=== PATIENT | male | born 1940 | race African-American/Black ===

== ENCOUNTER 2018-04-01 14:49 | Emergency (ER) | payer MEDICARE ==
[2018-04-01 15:50] LABS: Bilirubin Small (Negative); Blood, Urine Negative (Negative); Clarity CLEAR (Clear); Glucose, Urine (Dipstick) Negative (Negative); Leukocyte Small (Negative); Nitrite Negative (Negative); Protein, Urine (Dipstick) 100 mg/dL (Neg-Trace); Specific Gravity, Urine 1.023 (1.002-1.036); pH, Urine 5.5 (5.0-9.0)
[2018-04-01 15:50] LABS: #Eosinphils 0.1 thou/uL (0.0-0.7); #Lymphocytes 0.7 thou/uL (1.20-3.40); #Monocytes 0.7 thou/uL (0.11-0.59); #Neutrophils 5.7 thou/uL (1.40-6.50); %Basophils 0.2 % (0.0-1.0); %Eosinophils 0.8 % (0.0-10.0); %Lymphocytes 9.7 % (21.0-51.0); %Monocytes 9.5 % (0.0-10.0); %Neutrophils 79.8 % (42.0-75.0); Hemoglobin 11.9 g/dL (14.0-18.0); Mean Corpuscular HGB CONC 30.8 g/dL (32.0-36.0); Mean Corpuscular Hemoglobin 22.9 pg (27.0-31.0); Mean Corpuscular Volume 74.2 fL (78.0-98.0); Mean Platelet Volume 9.3 fL (7.4-10.4); Platelet Count 217 thou/uL (130-400); RBC Distribution Width 17.7 % (11.5-14.5); Red Blood Cell (RBC) Count 5.19 mill/uL (4.70-6.10); White Blood Cell (WBC) Count 7.2 thou/uL (4.8-10.8)
[2018-04-01 15:56] LABS: Bacteria/HPF None Seen HPF (None Seen); Squamous Epithelial 0-3 HPF (0-3); WBC/HPF 0-3 HPF (0-3)
[2018-04-01 15:59] LABS: Pathc Cast-AUWi Flag 5.66 (0-2.49)
[2018-04-01 16:04] LABS: Anisocytosis SLIGHT = 6-15 cells (100X) (0-5/hpf); Hypochromia SLIGHT = 6-15 cells (100X) (0-5/hpf); MDiff Complete? YES; Microcytosis SLIGHT = 6-15 cells (100X) (0-5/hpf); PLT Morphology Comment Appears Adequate; Polychromasia SLIGHT = 2-3 cells (100X) (0-2/hpf)
[2018-04-01 16:09] LABS: ALT (SGPT) 16 U/L (8-55); AST (SGOT) 38 U/L (5-34); Albumin 3.5 g/dL (3.4-4.8); Alkaline Phosphatase 1035 U/L (40-150); Anion Gap 15 mmol/L (10-20); BUN (Urea Nitrogen) 35 mg/dL (8.4-25.7); Bilirubin, Total 0.6 mg/dL (0.2-1.2); Calc. Creatinine Clearance 0 mL/min (70-130); Calcium 9.4 mg/dL (7.8-10.44); Carbon Dioxide 24 mmol/L (23-31); Chloride 97 mmol/L (98-107); Estimated GFR-MDRD 35; Globulin 4.3 g/dL (2.4-3.5); Glucose 146 mg/dL (83-110); Lipase 64 U/L (8-78); Potassium 4.6 mmol/L (3.5-5.1); Protein, Total 7.8 g/dL (5.8-8.1); Sodium 131 mmol/L (136-145)
[2018-04-01 16:10] LABS: Hyaline Casts/LPF 7-10 HYALINE CAST LPF (0-3 Hyaline); Other Casts/LPF None Seen LPF (0-3 Hyaline)
[2018-04-01] MEDS ORDERED: Ondansetron PF 4 MG/2 ML Vial ONE (17:52)
[2018-04-01] MEDS ORDERED: Morphine 2 MG/ML SYRINGE ONE (17:52)
--- NOTE | 2018-04-01 20:41 | CT ---
NONCONTRAST ENHANCED CT IMAGES OF THE ABDOMEN AND PELVIS 04/01/18 HISTORY: Abdominal pain. Noncontrast enhanced CT images of the abdomen and pelvis is obtained. Unfortunately without IV and or al contrast, there is decreased sensitivity for detection of pathology. Some areas of atelectasis seen in both lung bases. No evidence of free intraperitoneal air seen. Extensive areas of calcifications seen in the right hepatic lobe. The liver is otherwise unremarkable . No definite evidence of gallbladder abnormality seen. The spleen is unremarkable. Extensive left fl ank surgical changes seen. The left kidney is atrophied with surgical clips seen in the left perirena l area. The abdominal aorta contains some calcifications without evidence of aneurysms. No dilated loops of small bowel. The colon is of normal caliber with numerous descending and sigmoid colonic diverticula present. Extensive lumbar spinal degenerative changes seen. Bilateral hip arthritic changes seen. IMPRESSION: 1. Limited CT of abdomen and pelvis as IV and oral contrast was not given. 2. Left perirenal surgical changes. 3. No significant evidence of acute obstruction or free intraperitoneal air. POS: NANO
[2018-04-05 04:16] LABS: Total PSA 8.2 ng/mL (0.0-4.0)
== END 2018-04-01 18:58 | disposition home or self-care (01) ==
LOC: ERS 14:49
DX: M54.5 Low back pain (principal); R10.9 Unspecified abdominal pain; R74.8 Abnormal levels of other serum enzymes; E11.9 Type 2 diabetes mellitus without complications; I10 Essential (primary) hypertension
CPT/HCPCS: 36415; 74176; 80048; 81003; 81015; 82140; 82550; 83605; 83690; 83970; 84100; 84153; 84154; 85025; 96374; 96375; J2270; J2405

== ENCOUNTER 2018-04-28 14:25 | Outpatient (CLI) | payer MEDICARE ==
--- NOTE | 2018-04-28 15:49 | RAD ---
RIGHT HIP 2 VIEWS: HISTORY: A 77-year-old male with a history of right hip pain without recent fall. FINDINGS: There are heterogeneous nodular sclerotic densities within the right proximal femur as well as the ri ght hemipelvis. No evidence for acute fracture. IMPRESSION: Multiple nodular foci of increased sclerotic density, particularly within the proximal femur, but als o less marked in the right hemipelvis certainly concerning for the possibility of metastatic bone dis ease. Consider followup bone scan for further evaluation. No evidence for acute fracture. Mild deg enerative changes right hip joint. POS: NANO
--- NOTE | 2018-04-28 15:51 | RAD ---
RADIOGRAPH LUMBAR SPINE 3 VIEWS: 04/28/18 HISTORY: 77-year-old male with low back pain. FINDINGS: The lateral view demonstrates a large coarse calcification in the upper abdomen, which was demonstrat ed to be in the right lobe of the liver on the abdominal and pelvic CT of 04/01/18. There are five lum bar type vertebrae. Vertebral body heights are maintained. The bones appear diffusely sclerotic. Furt hermore, the sclerosis is heterogeneous, with numerous focal nodular sclerotic foci. Vertebral body h eights are preserved. At L5-S1, there is vacuum disc phenomenon and moderate to severe disc space narrowing. There is moderate disc space narrowing at L4-5, L3-4, and L2-3. No scoliosis. There are degenerative facet changes at lower levels. No major spondylolisthesis. IMPRESSION: 1. Extensive sclerotic skeletal lesions, highly suspicious for osteoblastic, widespread skeletal metastatic disease, such as from prostate cancer. Recommend correlation with serum PSA levels. 2. Lumbar spondylosis, with multilevel degenerative disc disease and facet osteoarthrosis, at le ast moderate. Code T JN [] POS: CET
--- NOTE | 2018-04-28 15:51 | RAD ---
LEFT HIP 2 VIEWS: HISTORY: A 77-year-old male with a history of left hip pain without recent fall. There are some nodular sclerotic foci within the proximal left femur but also in the left hemipelvis raising concern for the possibility of blastic bone metastasis. Degenerative changes of the left hip joint. No acute fracture. IMPRESSION: Multiple mostly sclerotic nodular foci of abnormal bone density within the proximal left femur and al so the left hemipelvis raising concern for the possibility of blastic bone metastasis. Degenerative changes let hip joint without acute fracture or dislocation. CODE T POS: TIMOTHY
== END 2018-04-28 14:26 | disposition home or self-care (01) ==
LOC: BICRAD 14:25
PROVIDERS: ATTEND Family Medicine
DX: M25.552 Pain in left hip (principal); M54.5 Low back pain; R74.8 Abnormal levels of other serum enzymes; M51.36 Other intervertebral disc degeneration, lumbar region; M47.816 Spondylosis without myelopathy or radiculopathy, lumbar region; M16.0 Bilateral primary osteoarthritis of hip; M89.9 Disorder of bone, unspecified
CPT/HCPCS: 36415; 72100; 84153; 84154; 84165; 84166; 85652

== ENCOUNTER 2018-05-17 12:15 | Inpatient (IN) | payer MEDICARE ==
[2018-05-17] MEDS ORDERED: HYDROcodone/Acetaminophen 10/325 mg Tablet PO PRN ×2 (13:39)
[2018-05-17] MEDS ORDERED: Ondansetron ODT 4 MG TAB PO PRN (13:40)
[2018-05-17] MEDS: Sodium Chloride 0.9% 1,000 ML IV SCH ×2 (15:01→21:58)
[2018-05-17] MEDS ORDERED: Morphine 2 MG/ML SYRINGE SLOW IVP PRN (15:21)
[2018-05-17] MEDS ORDERED: Morphine 4 MG/ML VIAL SLOW IVP SCH (15:30)
[2018-05-17] MEDS ORDERED: diphenhydrAMINE 50 MG/ML VIAL IM PRN (17:19)
[2018-05-17] MEDS ORDERED: Ondansetron PF 4 MG/2 ML Vial IVP PRN (17:19)
[2018-05-17] MEDS ORDERED: Promethazine HCl 25 MG/ML VIAL IM PRN (17:19)
[2018-05-17] MEDS ORDERED: Naloxone HCl 0.4 mg/ml Vial IV PRN (17:19)
[2018-05-17] MEDS ORDERED: Zolpidem Tartrate 5 MG TAB PO PRN (17:19)
[2018-05-17] MEDS ORDERED: diphenhydrAMINE 50 MG/ML VIAL IVP PRN (17:19)
[2018-05-17] MEDS ORDERED: diphenhydrAMINE 25 MG CAP PO PRN (17:19)
[2018-05-17] MEDS ORDERED: Communication Order-Pharmacy FS SCH (17:30)
[2018-05-17] MEDS: fentaNYL Citrate/PF 2,000 MCG in Sodium Chloride 0.9% 60 ML IV PRN (19:15)
[2018-05-17] MEDS: Famotidine 20 MG TAB PO SCH (19:55)
[2018-05-18] MEDS: Acetaminophen 325 MG TAB PO PRN ×2 (01:01→20:34)
--- NOTE | 2018-05-18 01:21 | HP ---
CHIEF COMPLAINT: Intractable back and hip pain, inability to ambulate. HISTORY OF PRESENT ILLNESS: This is a 78-year-old gentleman with history of rheumatoid arthritis, type 2 diabetes, hypertension, chronic kidney disease, and past history of renal cell carcinoma, who presented to my office with worsening back and hip pain. He developed the pain a few weeks ago, presented for followup with worsening pain and obtained x-rays of his back and hips as well as labs at that time. He was found to have bony changes consistent with metastatic bone disease in his L-spine as well as bilateral hips as well as elevated PSA and inflammatory markers. Arrangements were made for outpatient followup with Urology. He had difficulty functioning at home and had 1-week stay at the inpatient rehab and then discharged home with no improvement of his pain or symptoms. Re-presented to my office today with more difficulty ambulating, more pain, minimal relief with even narcotic analgesia, including decreased p.o. intake and began to fail to thrive. He is now being admitted for further evaluation, workup and treatment of his symptoms. PAST MEDICAL HISTORY: Again, remote history of renal cell carcinoma, status post left nephrectomy in 2011 with resultant left flank abscess; history of type 2 diabetes; hypertension; hyperlipidemia; [id number] aortic stenosis; rheumatoid arthritis; status post aortic valve replacement; and history of congestive heart failure. PAST SURGICAL HISTORY: Left nephrectomy in 2011, appendectomy in 1986, I and D of left flank abscess in 2013, and aortic valve replacement in 2012. MEDICATIONS: Include; 1. Atorvastatin 40 mg. 2. Potassium chloride 10 mEq daily. 3. Humulin R sliding scale. 4. Lantus. 5. Coreg 3.125 mg twice a day. 6. Furosemide 80 mg daily. 7. Prednisone 5 mg daily. 8. [place] 5/325 q.6 p.r.n. 9. Colace 100 mg daily. 10. Folic acid 1 mg daily. 11. Ferrous sulfate 325 mg daily. 12. Albuterol p.r.n. 13. Cymbalta 20 mg daily. 14. Aspirin 81 mg daily. 15. Protonix 40 mg daily. ALLERGIES: TO PENICILLIN AND SULFAMETHOXAZOLE. IMMUNIZATIONS: Flu shot and pneumonia vaccines are up-to-date. FAMILY HISTORY: Father . Mother with hypertension and heart disease. Siblings with hypertension and heart disease. SOCIAL HISTORY: He is . 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 No smoking. No alcohol. He was able to walk prior to this episode. REVIEW OF SYSTEMS: As per the history of present illness. CONSTITUTIONAL: He denies any recent fevers, chills, or recent upper respiratory infection. HEENT: No headache, visual or hearing changes. No congestion. CARDIAC: History of congestive heart failure, but denies chest pain or shortness of breath or palpitations. PULMONARY: Denies cough or hemoptysis. GASTROINTESTINAL: Some nausea. No vomiting. Poor p.o. intake. GENITOURINARY: History of hematuria with resultant renal cell carcinoma. MUSCULOSKELETAL: Positive joint pains due to rheumatoid arthritis. Has been followed by Dr. Chiang in the past. PSYCHIATRIC: History of some depression due to chronic pain. PHYSICAL EXAMINATION: VITAL SIGNS: Temperature 97.1, pulse is 78, respirations 12 to 15, blood pressure 132/60, and pulse ox is 97% on room air. GENERAL: He is awake and alert, in moderate distress due to pain and ability to ambulate or stand at the time. HEENT: Mucosa is moist. NECK: Supple. HEART: Regular rate and rhythm with 2/6 systolic ejection murmur. Trace edema bilateral lower extremities. RESPIRATORY: Clear. No wheezes, rales, or rhonchi. ABDOMEN: Obese, soft, nontender, and nondistended. No hepatosplenomegaly. EXTREMITIES: Again with trace edema bilaterally. 2+ peripheral pulses bilaterally. SKIN: With no lesions. He does have some tightness of the skin around his face, hands, and feet. BACK: Painful range of motion of the lumbar spine with tenderness over the lumbar spine. Decreased range of motion of his joints, including his hips. Inability to lay on the bed for full exam. LABORATORY DATA: Pending at this time, but from review of his recent x-rays, right hip revealed nodular sclerotic densities in the right femur and right hemipelvis consistent with metastatic bone disease. Left hip x-ray revealed sclerotic nodular foci with abnormal bone density in the left femur and left hemipelvis with concern for bony metastases. Lumbar spine revealed extensive sclerotic skeletal lesions highly suspicious for metastatic disease. Recent labs with a sed rate elevated at 97. PSA elevated at 11.6. Normal protein and urine electrophoresis. Alkaline phosphatase over 14,000. ASSESSMENT AND PLAN: This is a 78-year-old gentleman with history of diabetes, heart disease, hypertension, hyperlipidemia, and remote history of renal cell carcinoma; now with persistent and worsening back and hip pain with x-rays consistent with bony metastases likely from prostate origin. 1. Analgesia. We will start morphine p.r.n. pain and try to get him more comfortable. 2. Abnormalities of PSA and bony metastases highly suspicious for prostate origin. We will consult Dr. Fragoso for evaluation and possible therapies. 3. Pain Management consultation. 4. Type 2 diabetes. We will continue his insulin and sliding scale and monitor closely. 5. Stage 4 chronic kidney disease, likely a prerenal component. We will gently hydrate and monitor his fluid status closely. 6. Cardiomyopathy with history of congestive heart failure. We will continue carvedilol and Lasix as needed. Job ID: [id number]
[2018-05-18] MEDS: Famotidine 20 MG TAB PO SCH ×2 (08:24→20:34)
[2018-05-18] MEDS: Enoxaparin Sodium 30 MG/0.3 ML SYRINGE SC SCH (08:24)
[2018-05-18] MEDS: Sodium Chloride 0.9% 1,000 ML IV SCH ×2 (08:33→20:34)
[2018-05-18 09:07] LABS: ALT (SGPT) 13 U/L (8-55); AST (SGOT) 211 U/L (5-34); Alkaline Phosphatase 2306 U/L (40-150); Anion Gap 14 mmol/L (10-20); BUN (Urea Nitrogen) 30 mg/dL (8.4-25.7); Bilirubin, Total 0.8 mg/dL (0.2-1.2); Calc. Creatinine Clearance 53 mL/min (70-130); Carbon Dioxide 21 mmol/L (23-31); Chloride 104 mmol/L (98-107); Estimated GFR-MDRD 47; Globulin 3.4 g/dL (2.4-3.5); Glucose 124 mg/dL (83-110); Potassium 4.6 mmol/L (3.5-5.1); Protein, Total 6.4 g/dL (5.8-8.1); Sodium 134 mmol/L (136-145)
--- NOTE | 2018-05-18 09:33 | PRG ---
DATE OF SERVICE: 05/18/2018 SUBJECTIVE: The patient is feeling significantly better. He states that he had a good night sleep last night. He is moving in bed with decreased difficulty, still with some pain, but much improved with analgesia. I appreciate Anesthesia's assistance with pain management. He denies chest pain or shortness of breath. OBJECTIVE: VITAL SIGNS: Temperature 98.1, T-max of 100.8, pulse of 90, respirations 20, blood pressure 143/62, and pulse ox is 95% on 2 L nasal cannula. GENERAL: He is awake and alert, in no acute distress. Speech is clear. HEENT: Mucosa is moist. NECK: Supple. HEART: Regular rate and rhythm. LUNGS: Clear. ABDOMEN: Soft. BACK: With painful range of motion in the lumbar spine. EXTREMITIES: No edema. He is moving his hips better. Continues to have pain with range of motion. LABORATORY DATA: Laboratory data are pending. X-ray is as described on H and P. ASSESSMENT AND PLAN: This is a 78-year-old gentleman with history of coronary artery disease with cardiomyopathy, hypertension, chronic kidney disease, and history of renal cell carcinoma, now with intractable back and hip pain with bone metastases on x-ray suspicious for metastatic prostate cancer. 1. Intractable back and hip pain, improved with analgesia. I appreciate Anesthesia's assistance. 2. Elevated PSA with bony metastases. Dr. Fragoso to evaluate and discuss with family possible therapies. 3. Type 2 diabetes. We will continue insulin and sliding scale. 4. Cardiomyopathy with history of congestive heart failure. We will monitor his fluid status closely, awaiting labs from this morning. Job ID: [id number]
[2018-05-18 10:00] LABS: Band 24 % (5-11); Eosinophils 2 % (0-10); Hemoglobin 8.7 g/dL (14.0-18.0); Hypochromia SLIGHT = 6-15 cells (100X) (0-5/hpf); Lymphocytes 31 % (21-51); MDiff Complete? YES; Mean Corpuscular HGB CONC 31.4 g/dL (32.0-36.0); Mean Corpuscular Volume 73.4 fL (78.0-98.0); Mean Platelet Volume 4.2 fL (7.4-10.4); Metamyelocyte 3 % (0-0); Microcytosis MODERATE=15-30 cells (100X) (0-5/hpf); Monocytes 11 % (0-10); Myelocyte 3 % (0-0); Neutrophil 23 % (42-75); Nucleated RBC 10 % (0); PLT Morphology Comment Appears Decreased; Platelet Count 87 thou/uL (130-400); Polychromasia MODERATE = 3-4 cells (100X) (0-2/hpf); RBC Distribution Width 20.7 % (11.5-14.5); Reactive Lymphocytes 3 % (0-10); Red Blood Cell (RBC) Count 3.76 mill/uL (4.70-6.10); White Blood Cell (WBC) Count 4.4 thou/uL (4.8-10.8)
--- NOTE | 2018-05-19 | CON ---
DATE OF CONSULTATION: 05/18/[address] Krishna. Consulted is Dr. Fragoso. REASON FOR CONSULTATION: Metastatic cancer. HISTORY OF PRESENT ILLNESS: Mr. Ruiz is a 78-year-old black male, who was admitted to the hospital by Dr. Krishna for concerns regarding metastatic cancer. The patient presented to Dr. Krishna with a several week history of worsening pain in the hips and back. The patient recently had a CT in March, which did not demonstrate any overtly concerning findings, but a subsequent x-ray of the hip and spine towards the end of March demonstrated concerning diffuse osteoblastic metastatic disease. As the patient's pain got worse, he was admitted to the hospital for pain control. He had a PSA drawn, which came back at 11.6 with elevated inflammatory markers. 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 I have been consulted for further assistance on his workup. The patient does have a history of renal cell carcinoma, which was resected with nephrectomy in 2010 in [place]. I do not have any of the pathology reports on this, but he states that he did not have any recurrence afterwards and he did have some followup with them in the postoperative years. It is unclear whether or not he has been having routine PSA screening or rectal examination. The patient is somewhat a poor historian today as he is currently on a lot of fentanyl and is having a hard time keeping his eyes open. He falls asleep quickly, although he is answering questions but is not giving a very thorough history. He does state that he is having some difficulty with urination with a weak stream. He denies any hematuria and states that he has not had any UTIs. He is feeling relatively tired currently. PAST MEDICAL HISTORY: 1. Renal cell carcinoma, status post nephrectomy. 2. Left flank abscess. 3. Type 2 diabetes. 4. Hypertension. 5. Hyperlipidemia. 6. Aortic stenosis. 7. Rheumatoid arthritis. 8. Congestive heart failure. PAST SURGICAL HISTORY: 1. Left nephrectomy in 2011. 2. Appendectomy in 1986. 3. I and D of left flank abscess in 2013. 4. Aortic valve replacement in 2012. HOME MEDICATIONS: 1. Atorvastatin. 2. Potassium chloride. 3. Humulin. 4. Lantus. 5. Coreg. 6. Furosemide. 7. Prednisone. 8. [place]. 9. Colace. 10. Folic acid. 11. Ferrous sulfate. 12. Albuterol. 13. Cymbalta. 14. Aspirin. 15. Protonix. ALLERGIES: 1. PENICILLIN. 2. SULFAMETHOXAZOLE. FAMILY HISTORY: Not significant for prostate or renal cell carcinoma. He does have brothers and sisters with hypertension and heart disease. SOCIAL HISTORY: The patient is . 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 He denies smoking, alcohol, or illicit drug use. REVIEW OF SYSTEMS: A 12-point review of system was unremarkable other than the patient's back and hip pain, which he states is relatively well controlled right now. The above symptoms are listed in the HPI. He denies any chest pain or shortness of breath. He does have a history of joint pain secondary to rheumatoid arthritis, but the pain in his spine is much worse than what his joint pains have been in the past. Remainder of 12-point review of system was reviewed and otherwise negative. PHYSICAL EXAMINATION: VITAL SIGNS: Temperature 98.1, pulse 90, respirations 20, blood pressure 148/53, saturation 95% on 2.5 L of nasal cannula. GENERAL: Somnolent, but otherwise answering questions appropriately. Appears stated age, well nourished, well developed. HEENT: Normocephalic, atraumatic. Pupils are symmetric and round. They are somewhat small. Moist mucous membranes. Trachea midline. CARDIOVASCULAR: Regular rate and rhythm. Normal S1 and S2. Symmetric pulses. Loud systolic murmur. CHEST: No increased work of breathing. Symmetric expansion. LUNGS: Decreased breath sounds. No obvious wheezes or crackles anteriorly. ABDOMEN: Soft, nontender, nondistended. Positive bowel sounds. No organomegaly. No rebound or guarding. EXTREMITIES: 1+ edema bilaterally. No clubbing or cyanosis. GENITOURINARY: ILA demonstrates a grade 3 prostate with bilateral nodularity and firmness consistent with possible prostate cancer. SKIN: Warm and dry. No rashes or lesions. MUSCULOSKELETAL: No joint deformities or joint erythema noted. There is significant tenderness on his lumbar spine. The patient has difficulty moving currently with apparent decreased range of motion of his lower extremities with adequate range of motion of the upper extremities. NEUROLOGIC: Cranial nerves 2 through 12 appear grossly intact. No focal or sensory motor deficits identified. Although the patient has generalized lower extremity weakness, it is unclear if this is due to sedation, neurologic impairment or the patient's pain. PSYCHIATRIC: Alert and oriented x3. The patient is somnolent, but otherwise appropriate. LABORATORY DATA: On laboratory evaluation, full set of labs in the [facility] system which I have reviewed. Of note, the patient's white count is 4.4 with hemoglobin of 8.7, platelet count of 87. Creatinine is 1.71. Most recent PSA 11.6 on April 28. Lumbar spine x-ray on April 28, demonstrates extensive sclerotic skeletal lesions highly suspicious for osteoblastic widespread metastatic disease, possibly from prostate cancer. There is also lumbar spondylosis with multilevel degenerative disc disease. Hip x-ray from April 28 demonstrates multiple nodular foci of increased sclerotic density particularly within the proximal femur concerning for metastatic bone disease. CT from April 01 demonstrates left perirenal surgical changes without evidence of obstruction or hydronephrosis, although the left kidney is atrophied. Degenerative changes seen in the spine, but no comment on metastatic cancer is noted. ASSESSMENT AND PLAN: A 78-year-old black male with high suspicion for metastatic prostate cancer. His PSA is not significantly elevated at 11.9, which is unusual. Generally metastatic diffuse bony prostate cancer would have a PSA well over 100. At this point, it is possible that he has [place] 5 + 5 prostate cancer, which is so poorly differentiated that is actually not producing PSA in which case, we may see the current changes. I would recommend a biopsy of one of the sclerotic lesions on the bone to see if this is indeed actually metastatic prostate cancer, which it most likely is. While metastatic renal cell carcinoma is also possible, generally, these are osteolytic lesions and not blastic lesions and would be unusual this far out with this extensive bony metastatic disease. I will go ahead and consult Medical Oncology further assistance as well, but the patient may benefit from starting on androgen deprivation. I will arrange for a CT-guided biopsy of one of the spinal lesions if this is possible to try to confirm a pathologic diagnosis. If Radiology is not able to do this, we may have to consider doing a prostate biopsy instead. Regarding the patient's pain, I am in agreement with the patient's ELECTRIC BLANKET PACKER although care needs to be taken about how much pain medication he is receiving as he is already appearing sedated. He would probably benefit from androgen deprivation if this is confirmed to be metastatic prostate cancer and the quickest way to do that would be ketoconazole followed by bicalutamide therapy once his pain is more adequately controlled. The patient may also benefit from focal radiation to the areas of increased pain along the spine but before any of this is undertaken, I do think we need to get a pathologic diagnosis. I will continue to follow for the time being and make a consult for Medical Oncology to see if they have any additional options or recommendations. Job ID: [id number]
[2018-05-19] MEDS: Sodium Chloride 0.9% 1,000 ML IV SCH ×2 (05:19→18:22)
[2018-05-19] MEDS: Famotidine 20 MG TAB PO SCH ×2 (09:37→20:54)
[2018-05-19] MEDS: Enoxaparin Sodium 30 MG/0.3 ML SYRINGE SC SCH (09:38)
[2018-05-19 12:47] LABS: INR-International Normal Ratio 1.3; Prothrombin Time 16.1 SEC (12.0-14.7)
[2018-05-19 12:48] LABS: PTT 36.1 SEC (22.9-36.1)
--- NOTE | 2018-05-19 13:05 | NM ---
NUCLEAR MEDICINE BONE SCAN: HISTORY: Hip pain. COMPARISON: CT abdomen and pelvis from 04/01/2018. FINDINGS: Whole body delayed imaging was obtained after the intravenous administration of 32 millicuries of noah hnetium 99m MDP. The kidneys are reportedly seen. The urinary bladder is only partially filled with radiotracer. The re is diffuse axial and appendicular uptake of radiotracer. IMPRESSION: Diffuse metastatic disease. POS: TIMOTHY
[2018-05-19] MEDS ORDERED: Sodium Bicarbonate 2.5 MEQ/5 ML VIAL ONE (13:57)
[2018-05-19] MEDS ORDERED: Midazolam HCl 2 mg/2 ml Vial ONE (14:00)
[2018-05-19] MEDS ORDERED: Fentanyl 100 MCG/2 ML VIAL ONE (14:00)
--- NOTE | 2018-05-19 14:41 | CON ---
DATE OF CONSULTATION: REASON FOR CONSULTATION: Bone metastasis from unknown cancer. HISTORY OF PRESENT ILLNESS: A 78-year-old male with history of diabetes; hypertension; CKD; rheumatoid arthritis; and renal cell carcinoma, status post resection in 2010, presenting with worsening back and hip pain and knee pain. The patient states that he has had chronic knee pain for years and resultant leg weakness, which has recently started to worsen. Three weeks ago, he developed new onset back pain in his lower back, 10/10, and nonradiating. The patient had been evaluated as an outpatient with an x-ray of the lumbar spine that showed extensive sclerotic skeletal lesions highly suspicious for osteoblastic skeletal metastatic disease. PSA was 11.6. The patient was referred to Urology as an outpatient; however, before his appointment, he presented here to the hospital due to uncontrollable pain. The patient is currently on a HELICOPTER MECHANIC with improvement in his pain to 3 to 4/10; however, he says his knees are hurting worse and are 8/10 in pain. He denies any urinary or bowel incontinence, but does have slow urinary stream. He denies any hematuria. He denies fevers or night sweats, shortness of breath or cough. He denies any numbness or tingling in his lower extremities. The patient has been evaluated by Dr. Fragoso from Neurology, who has ordered a biopsy of his bone. The patient denies any other symptoms. The patient is a former smoker and states he does not smoke anymore, however, his said he does smoke on and off. He denies any alcohol use. He states his father had some sort of abdominal cancer, but unclear what type. REVIEW OF SYSTEMS: Ten-point review of systems negative except as per HPI. PAST MEDICAL HISTORY: Renal cell carcinoma, status post left nephrectomy in 2010 and 2011; diabetes; hypertension; CKD; hyperlipidemia; aortic stenosis, status post valve replacement; rheumatoid arthritis; and CHF. PAST SURGICAL HISTORY: Left nephrectomy in 2011, appendectomy in 1986, I and D of left flank abscess in 2013, and aortic valve replacement in 2012. FAMILY HISTORY: Some sort of abdominal cancer in his father. 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 Denies current smoking, but is a former smoker, however, states he still smokes. Denies any alcohol use. ALLERGIES: PENICILLIN AND SULFAMETHOXAZOLE. CURRENT MEDICATIONS: Reviewed. PHYSICAL EXAMINATION: VITAL SIGNS: Temperature 100.3 overnight, currently 98.2; pulse 100; respirations 17; saturating 96% on 2 L by nasal cannula; and blood pressure 129/62. GENERAL APPEARANCE: The patient is sitting in chair, in no acute distress. Able to stand and transition from bed to chair extremely slowly, in moderate pain during transition. HEENT: Normocephalic and atraumatic. NECK: Supple. CARDIAC: S1 and S2 with 3/6 systolic ejection murmur. RESPIRATIONS: Clear to auscultation bilaterally without wheezes, rales, or rhonchi. ABDOMEN: Obese, but soft, nondistended, and nontender. EXTREMITIES: Minimal edema bilaterally. SKIN: No rash. LYMPHATICS: No palpable lymphadenopathy. BACK: Minimal spinal tenderness around upper lumbar spine with decreased range of movement. LABORATORY DATA: White blood cells 4.4, hemoglobin 8.7, platelets 87, with 3% metamyelocytes, 3% myelocytes, and 10% nucleated red blood cells. Sodium 134, potassium 4.6, BUN 30, and creatinine 1.71. Alkaline phosphatase 2306. PSA on April 28, 2018, was 11.6. Calcium 9.0. IMAGING DATA: X-ray of the lumbar spine dated April 28, 2018, shows extensive sclerotic skeletal lesions highly suspicious for osteoblastic widespread skeletal metastatic disease. Lumbar spondylosis with multilevel degenerative disk disease with facet osteoarthrosis at least moderate. ASSESSMENT AND PLAN: A 78-year-old male with suspicion of metastatic cancer to bones likely of prostate origin. The patient with severe back pain with lesion seen on x-ray. Pain is improving with HELICOPTER MECHANIC at this time and we will continue to monitor his pain level and sedation level. The patient does have a mildly increased PSA and slow stream on urination concerning for metastatic prostate cancer. However, as mentioned by Dr. Fragoso, this degree of metastatic prostate cancer typically has extremely elevated PSA, however, there are times where PSA can be minimally elevated, such as a very poorly differentiated prostate adenocarcinoma or even potentially a small cell prostate cancer. I agree with biopsy of the sclerotic lesion in the bone, and if negative, the patient would need a biopsy of the prostate. The patient has a remote history of renal cell carcinoma 6 to 7 years ago, status post resection, with no evidence of recurrence, and although these lesions could be from renal cell carcinoma, these are typically osteolytic lesions. The patient has no further imaging of the bones and we would recommend a bone scan at this time. He has no signs or symptoms of cord compression other than weakness of the legs, which is chronic as per the patient's report. The patient is also found to be pancytopenic with a mildly decreased white count, but with immature forms on differential along with anemia and thrombocytopenia, which is new. We would recommend sending flow cytometry for further evaluations, and if negative and counts do not improve or worsen, then we would recommend bone marrow biopsy at that time. If biopsy comes back showing prostate cancer due to extent of metastatic disease and symptoms, the patient would benefit from treatment with ketoconazole and a gonadotropin-releasing hormone antagonists antagonist acutely, which can then be transitioned to Casodex and Lupron. The patient may also benefit from docetaxel chemotherapy due to extent of disease. The patient would also be a candidate for palliative radiation to the spine and I will consult with Dr. Roth about this. We will follow up the imaging and biopsy results and follow along with you. Thank you for this consult. Job ID: [id number]
--- NOTE | 2018-05-19 16:16 | CT ---
CT GUIDED BONE BIOPSY: Date: 05/19/18 HISTORY: Metastatic disease. COMPARISON: CT abdomen and pelvis dated 04/01/18. Bone scan same day. FINDINGS: The patient was brought to the CT suite. All questions were answered. The patient's back was prepped and draped in the normal sterile fashion. 5 mL of lidocaine was instilled into the superficial and deep soft tissues. After adequate anesthesia , a small dermatotomy was made. Using a 10 gauge needle, a 3.0 cm core was obtained. The pathologist confirmed adequacy. The patient tolerated the procedure well and without complication. IMPRESSION: Technically successful CT guided bone biopsy. POS: [facility]
[2018-05-20] MEDS: Acetaminophen 325 MG TAB PO PRN ×2 (00:45→20:46)
[2018-05-20] MEDS ORDERED: Sodium Chloride 0.9% 500 ML IV SCH ×2 (00:45)
[2018-05-20] MEDS: Sodium Chloride 0.9% 1,000 ML IV SCH ×3 (01:01→10:45)
[2018-05-20 01:25] LABS: Bilirubin Small (Negative); Blood, Urine Negative (Negative); Clarity CLOUDY (Clear); Glucose, Urine (Dipstick) Negative (Negative); Leukocyte Negative (Negative); Nitrite Negative (Negative); Protein, Urine (Dipstick) 30 mg/dL (Neg-Trace); Specific Gravity, Urine 1.017 (1.002-1.036)
[2018-05-20 01:27] LABS: Bacteria/HPF None Seen HPF (None Seen); Pathc Cast-AUWi Flag 2.32 (0-2.49); Squamous Epithelial 0-3 HPF (0-3); WBC/HPF 0-3 HPF (0-3)
[2018-05-20 01:41] LABS: Hyaline Casts/LPF 4-6 HYALINE CAST LPF (0-3 Hyaline); RBC/HPF 0-3 HPF (0-3)
--- NOTE | 2018-05-20 01:53 | CON ---
DATE OF CONSULTATION: 05/19/2018 REASON FOR CONSULTATION: Mr. Ruiz is a 78-year-old gentleman, who appears to have diffuse metastasis of the bone, possibly from prostate cancer. I have been asked to see him regarding radiation therapy. HISTORY OF PRESENT ILLNESS: Mr. Ruiz apparently was doing fairly well up until about 6 weeks ago or so. Since that time he has had progressive pain in his lower back, which radiates down into his hips and also down his legs. This has particularly gotten worse in the past 3 weeks. He did have a CT scan of the abdomen and pelvis at the end of March, which did not show any explaining pathology. The CT was interpreted as degenerative changes in the spine and hips. Because his pain persisted, his family physician did obtain recent x-rays of the lumbar spine as well as the pelvis and hips. This suggested sclerotic lesions consistent with osteoblastic metastatic disease. Because of his level of pain, he was admitted to the hospital for pain control and further workup. His PSA is apparently 11.6. He has seen Dr. Fragoso for evaluation. Plan is for him to have a CT-guided biopsy of the bone. He did have a bone scan, which was interpreted as diffuse metastatic disease. He does have a hard time ambulating. He reports diffuse weakness in both the arms and the legs. He denies any numbness in the legs. He has not had a bowel movement in the past 4 days. His urinary stream is slow, but he does feel that he empties the bladder. His appetite has been decreased and he has been eating less over the past several weeks and does feel that he has lost weight. He has had some occasional vomiting. He denies any headaches. He voices no other complaints. PAST MEDICAL HISTORY: 1. Left renal cell carcinoma, status post partial nephrectomy. 2. Hypertension. 3. Diabetes. 4. Hypercholesterolemia. 5. Aortic stenosis. 6. Rheumatoid arthritis. 7. Congestive heart failure. 8. History of left flank abscess. 9. Status post appendectomy. 10. Status post aortic valve replacement. MEDICATIONS: 1. Pepcid. 2. Fentanyl, PACKAGING MANAGER pump. 3. Zofran. 4. Lasix. 5. Coreg. 6. Dulera inhaler. 7. Zyrtec. 8. Aspirin. 9. Cymbalta. 10. Diazepam. 11. Vitamin D3. 12. Colace. 13. Insulin. ALLERGIES: PENICILLIN AND SULFA DRUGS HAVE BOTH CAUSED RASH. FAMILY HISTORY: Negative for prostate cancer or other malignancies. There is a family history of hypertension and heart disease. 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 He has no smoking or alcohol use. He does live in [place], [place]. REVIEW OF SYSTEMS: A 12-system review of systems was performed and is otherwise negative. PHYSICAL EXAMINATION: VITAL SIGNS: Height 6 feet, weight 228 pounds, blood pressure is 140/54, pulse is 102, respirations are 20, temperature is 98.2, and O2 saturation is 96%. GENERAL: He is alert and oriented. He had a difficult time moving around from discomfort. He seems to hurt all over with movement. Karnofsky Performance Status presently is at 50%. HEENT: Eyes; pupils are equal, round, and reactive to light. Extraocular movements are intact. ENT; oral cavity and oropharynx, no oral infection, no lesion or erythema. Palate elevates symmetrically. Gingiva is intact. NECK: Supple without cervical or supraclavicular adenopathy. No thyromegaly. Larynx midline. LUNGS: Breathing non-labored. Clear to auscultation and percussion. CARDIOVASCULAR: Heart is regular rate and rhythm with a 2/6 systolic murmur. Lower extremities show bronzy discoloration and chronic lower extremity edema that is pretibial. BACK: No tenderness on percussion of his spine. LYMPHATIC: No axillary or inguinal adenopathy. ABDOMEN: Bowel sounds present. Soft, nontender, nondistended without mass or hepatosplenomegaly. NEUROLOGIC: Gait was not tested. Cranial nerves 2 through 12 are grossly intact. Motor strength is 5/5 in both upper and lower extremities and all muscle groups tested. However, he does basically grimace in pain with testing his muscle strength in his extremities. Reflexes are diminished, but symmetrical. LABORATORY DATA: CBC revealed a white blood cell count of 4400 with a hemoglobin of 8.7 and hematocrit of 27.6. Platelet count is 87,000. Chemistry group revealed a sodium of 134 with a carbon dioxide of 21. BUN was 30 with a creatinine of 1.71. Alkaline phosphatase is elevated at 2306. Calcium 9.0 Albumin was decreased at 3.0. AST was elevated at 211. Again, PSA on 04/28/2018 was 11.6. RADIOLOGIC DATA: Bone scan was personally reviewed. He does appear to have diffuse uptake consistent with diffuse metastatic disease including the spine and femurs and humeri and his sacroiliac joint region. I did personally review the CT of the abdomen and pelvis performed last month. He has a smaller left kidney from his partial nephrectomy. There is no evidence of adenopathy. He did not appear to have any mass lesion in the visualized portion of the spine. Plain film x-rays of his lumbar spine and femurs were reviewed, which shows diffuse sclerotic areas consistent with bone metastasis. ASSESSMENT: Mr. Ruiz is a 78-year-old gentleman, who appears to have diffuse bone metastasis. Presumably, this is from metastatic prostate cancer. I think this is unlikely to be renal cell carcinoma that metastasized to the bone, but certainly this cannot be 100% excluded. With the metastasis appearing blastic, I think this makes prostate cancer more likely. What is unusual is that his PSA is only 11.6. PLAN: I agree with Dr. Fragoso that we need to obtain tissue diagnosis. Preferably, this would be from a bone biopsy or alternatively could be from the prostate. He could then begin anti-androgen therapy. At the present time, I am not sure that he is a good candidate for radiation therapy. It seems that he has pain diffusely from his metastasis. By history, he only reports pain in his lower back, but also in his hips and legs. I am certainly not able to treat his entire lumbar spine as well as his hips and femurs with radiation therapy. I am not convinced that his pain in his legs and femur area is from radiculopathy from his lumbar spine, especially since the CT does not seem to show a mass lesion in the lumbar spine that would be compressing nerve roots. Given his bone scan, I think the pain in his hips and in his femurs is actually from disease in his hips and his femurs. However, on exam, he seems to be diffusely hurting including pain in the humerus areas also. Consideration could be given to an injectable form of radiation therapy, given Quadramet normally, but given his low platelet count and his anemia, he is not a candidate for an injectable form of radiation either to help with his pain. I may consider an MRI of the lumbar spine to try and evaluate whether there is anything that is radicular causing his pain, but I am not sure at this point that this adds much. I think a decision regarding whether to get an MRI of his lumbar spine will depend on what the biopsy shows. Hopefully, the biopsy is going to show metastatic prostate cancer as this is the most treatable thing that he could have. We could then begin his androgen deprivation therapy and he should see a pain relief from the androgen deprivation therapy. I will continue to follow him with you. We will make additional recommendations depending on the biopsy results. Thank you for this interesting consultation. Job ID: [id number] CHERELLE
[2018-05-20] MEDS: fentaNYL Citrate/PF 2,000 MCG in Sodium Chloride 0.9% 60 ML IV PRN (03:28)
--- NOTE | 2018-05-20 08:19 | RAD ---
RADIOGRAPH CHEST 1 VIEW: Date: 05/20/2018 Time: 1:04 a.m. HISTORY: A 78-year-old male with fever. COMPARISON: 08/27/2016 FINDINGS: Cardiomegaly. Prominent interstitial markings. These interstitial densities are greater at the lung bases on the current study compared to previous. Apparently chronic blunting of the lateral costoph renic angles bilaterally, suggestive of pleural thickening. No gross consolidation visualized, altho ugh the retrocardiac portions of the lower lobes are obscured. No pneumothorax. New finding of diff use sclerosis of osseous structures. IMPRESSION: 1. Cardiomegaly. 2. Evidence of diffuse osteoblastic metastatic disease. JN [] POS: [facility]
[2018-05-20] MEDS: Famotidine 20 MG TAB PO SCH ×2 (08:54→22:22)
[2018-05-20 09:22] LABS: ALT (SGPT) 15 U/L (8-55); AST (SGOT) 48 U/L (5-34); Albumin 2.7 g/dL (3.4-4.8); Alkaline Phosphatase 1337 U/L (40-150); Anion Gap 16 mmol/L (10-20); BUN (Urea Nitrogen) 29 mg/dL (8.4-25.7); Bilirubin, Total 1.3 mg/dL (0.2-1.2); Calc. Creatinine Clearance 52 mL/min (70-130); Calcium 8.8 mg/dL (7.8-10.44); Carbon Dioxide 17 mmol/L (23-31); Chloride 105 mmol/L (98-107); Estimated GFR-MDRD 46; Globulin 3.5 g/dL (2.4-3.5); Glucose 190 mg/dL (83-110); Potassium 4.5 mmol/L (3.5-5.1); Protein, Total 6.2 g/dL (5.8-8.1); Sodium 133 mmol/L (136-145)
[2018-05-20 09:34] LABS: Band 21 % (5-11); Burr Cells SLIGHT = 2-5 cells (100X) (0-1/hpf); Elliptocytes SLIGHT = 2-5 cells (100X) (0-1/hpf); Hemoglobin 7.8 g/dL (14.0-18.0); Hypochromia SLIGHT = 6-15 cells (100X) (0-5/hpf); Lymphocytes 22 % (21-51); MDiff Complete? YES; Mean Corpuscular HGB CONC 31.5 g/dL (32.0-36.0); Mean Corpuscular Hemoglobin 23.5 pg (27.0-31.0); Mean Corpuscular Volume 74.7 fL (78.0-98.0); Mean Platelet Volume 5.3 fL (7.4-10.4); Microcytosis SLIGHT = 6-15 cells (100X) (0-5/hpf); Monocytes 13 % (0-10); Myelocyte 1 % (0-0); Neutrophil 42 % (42-75); Nucleated RBC 3 % (0); PLT Morphology Comment Appears Decreased; Platelet Count 78 thou/uL (130-400); Polychromasia SLIGHT = 2-3 cells (100X) (0-2/hpf); RBC Distribution Width 21.6 % (11.5-14.5); Red Blood Cell (RBC) Count 3.29 mill/uL (4.70-6.10); White Blood Cell (WBC) Count 3.5 thou/uL (4.8-10.8)
--- NOTE | 2018-05-20 10:24 | PRG ---
DATE OF SERVICE: 05/20/2018 SUBJECTIVE: The patient continues to complain back pain and leg pain, and states that this pain has gone down his legs. He continues having pain from the bone biopsy site. Apparently spiked a low-grade temperature to 100.6 which resolved with Tylenol and workup is in progress. OBJECTIVE: VITAL SIGNS: Now, temperature 98.1, pulse 117, respirations 22, blood pressure 122/53, and pulse ox is 93% on 2 L nasal cannula. GENERAL: He is awake and alert, uncomfortable. HEENT: Mucosa is moist. NECK: Supple. HEART: Regular rate and rhythm. LUNGS: Clear. ABDOMEN: Obese. EXTREMITIES: With painful range of motion. LABORATORY DATA: Laboratory data from this morning is pending. Accu-Cheks of 147, 140, 140, 123, 119. Bone biopsy is pending. Bone scan reveals diffuse metastatic disease. ASSESSMENT: 1. This is a 78-year-old gentleman admitted for intractable back and hip pain, who was found to have metastatic disease in his lumbar and hips, likely originating from the prostate cancer. Workup is in progress. Appreciate consultants' assistance. 2. Type 2 diabetes, appears to be stable. We will continue his medications. May need to decrease his insulin if he develops hypoglycemia. 3. Pancytopenia. Follow up as per Oncology. We will continue to follow closely. Job ID: [id number]
--- NOTE | 2018-05-20 14:55 | PRG ---
DATE OF SERVICE: 05/20/2018 SUBJECTIVE: The patient states he is still having a lot of pain in his lower extremities, hips, and knees. His urination is still not very good. He states his stream is somewhat weak. He denies any hematuria or burning. He did undergo a bone scan, which demonstrated diffuse osseous metastatic disease. A bone biopsy was also done as I had ordered, but the pathology is still pending. 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 OBJECTIVE: VITAL SIGNS: Temperature 98, pulse 100, respirations 16, blood pressure 113/52, and saturation 96% on 2 L nasal cannula. GENERAL: More alert and communicative, responsive today. CARDIOVASCULAR: Sinus tachycardia. Normal S1 and S2. ABDOMEN: Soft, nontender, and nondistended. CHEST: No increased work of breathing. Clear anteriorly. : Unremarkable. EXTREMITIES: No clubbing, cyanosis, or edema. LABORATORY DATA: On laboratory evaluation, the patient's white count is 3.5 with a hemoglobin of 7.8. Creatinine is 1.75. Platelets are 78. Pathology of the bone biopsy is still pending. ASSESSMENT AND PLAN: A 78-year-old black male with diffuse osseous metastatic disease, most likely from a prostatic origin; although, confirmatory pathology is still pending. We have not started any definitive medications, but if his biopsy does demonstrate prostate adenocarcinoma, he would do best to start on ketoconazole for immediate androgen deprivation followed by bicalutamide and Lupron combination therapy. The patient would also be a very good candidate for Brandenburg-223 if he can get his myelosuppression corrected. This would have a significant improvement of his bony pain and control of his metastatic cancer, but unfortunately the side effect is myelosuppression, which the patient already is demonstrating side effects from. If this could be corrected, I think he could do this with Dr. Castillo, who does provide Brandenburg-223 infusions. From my standpoint, I will also start him on Flomax to help with his urinary symptoms. His constipation is also a problem as he is on a lot of narcotics and needs to be on a stronger bowel regimen. I will write him for lactulose until he has a bowel movement, at which point he can switch over to MiraLAX for maintenance of his bowel movements. This should also help his urinary symptoms. Ultimately, I think Medical Oncology will provide the most necessary treatments for him for controlling his metastatic cancer. We will be available if needed, but we will continue to follow along mainly from a urinary standpoint. I will plan to see the patient back in 2 to 3 weeks for a hospital followup, but I will not be available for the next 2 weeks as I will be out of town. The on-call urologist will be covering for me if there is anything that needs our assistance. Job ID: [id number]
[2018-05-20] MEDS: Tamsulosin HCl 0.4 MG CAP PO SCH (20:47)
[2018-05-21 06:37] LABS: ALT (SGPT) 15 U/L (8-55); AST (SGOT) 32 U/L (5-34); Albumin 2.6 g/dL (3.4-4.8); Alkaline Phosphatase 1073 U/L (40-150); Anion Gap 12 mmol/L (10-20); BUN (Urea Nitrogen) 32 mg/dL (8.4-25.7); Bilirubin, Total 0.7 mg/dL (0.2-1.2); Calc. Creatinine Clearance 51 mL/min (70-130); Calcium 8.5 mg/dL (7.8-10.44); Carbon Dioxide 19 mmol/L (23-31); Chloride 107 mmol/L (98-107); Estimated GFR-MDRD 45; Globulin 3.4 g/dL (2.4-3.5); Glucose 149 mg/dL (83-110); Potassium 4.4 mmol/L (3.5-5.1); Sodium 134 mmol/L (136-145)
[2018-05-21 08:12] LABS: Band 9 % (5-11); Eosinophils 2 % (0-10); Hemoglobin 6.9 g/dL (14.0-18.0); Lymphocytes 27 % (21-51); MDiff Complete? YES; Mean Corpuscular HGB CONC 31.2 g/dL (32.0-36.0); Mean Corpuscular Hemoglobin 23.1 pg (27.0-31.0); Mean Corpuscular Volume 74.1 fL (78.0-98.0); Mean Platelet Volume 4.9 fL (7.4-10.4); Metamyelocyte 2 % (0-0); Monocytes 11 % (0-10); Neutrophil 48 % (42-75); PLT Morphology Comment Appears Decreased; Platelet Count 69 thou/uL (130-400); RBC Distribution Width 21.2 % (11.5-14.5); White Blood Cell (WBC) Count 3.5 thou/uL (4.8-10.8)
[2018-05-21] MEDS ORDERED: Polyethylene Glycol 3350 17 GM Packet PO SCH (09:00)
[2018-05-21] MEDS: Famotidine 20 MG TAB PO SCH ×2 (09:00→20:06)
[2018-05-21] MEDS ORDERED: HumaLOG 300 UNITS/3 ML VIAL SC PRN (10:05)
[2018-05-21] MEDS: Sodium Chloride 0.9% 1,000 ML IV SCH (10:12)
--- NOTE | 2018-05-21 11:26 | PRG ---
DATE OF SERVICE: 05/21/2018 SUBJECTIVE: The patient is feeling much better after having a large BM yesterday. Pain is controlled with LABORATORY DIRECTOR analgesia. He is walking in the room with a walker. He states that his appetite is good. He states that he is urinating well in the urinal. OBJECTIVE: VITAL SIGNS: Temperature 98.0, pulse of 94 to 103, respirations 20, blood pressure 124/88, pulse ox is 92% to 96% on 2 L nasal canula. GENERAL: He is awake and alert, sitting at the edge of the bed, in no acute distress. HEENT: Mucosa is moist. NECK: Supple. HEART: Regular rate and rhythm. LUNGS: With rales at the bases. ABDOMEN: Obese, soft, and nontender. EXTREMITIES: Trace edema in bilateral lower extremities. Lumbar spine, improved range of motion. LABORATORY DATA: White blood cell count 3500, hemoglobin and hematocrit are 6.9 and 22.2 with microcytic indices, platelets down to 69. Sodium 134, potassium 4.4, chloride 107, CO2 of 19, BUN and creatinine are 32 and 1.79, with a GFR of 45, serum glucose of 149, Accu-Cheks have been 152, 205, 173, 119. Alkaline phosphatase 1073. Pathology report from the bone biopsy revealed a metastatic non-small cell carcinoma with further staining pending. ASSESSMENT AND PLAN: This is a 78-year-old gentleman, admitted with intractable back and hip pain with elevated PSA, most likely with a diffuse osseous metastatic prostate carcinoma, but pending final pathology. 1. 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 Further plan pending Oncology evaluation of path report. 2. Type 2 diabetes. We will start insulin sliding scale. 3. Stage 3 chronic kidney disease. We will monitor closely. 4. Cardiomyopathy with history of congestive heart failure. We will stop IV fluids. 5. Symptomatic anemia, seems to be progressively worsening. We will transfuse 2 units packed red blood cells. Possibly due to cancer, anemia of chronic disease, anemia of chronic kidney disease. We will continue GI protection and guaiac stool to rule out GI bleed. 6. Code status. I had another conversation with the patient about his status and he continues to desire a full code. Job ID: [id number]
[2018-05-21] MEDS ORDERED: Acetaminophen 500 MG TAB PO SCH (11:30)
[2018-05-21] MEDS ORDERED: Furosemide 40 MG/4 ML VIAL SLOW IVP SCH (11:30)
[2018-05-21] MEDS ORDERED: diphenhydrAMINE 25 MG CAP PO SCH (11:30)
[2018-05-21] MEDS: HumaLOG 300 UNITS/3 ML VIAL SC PRN (12:33)
[2018-05-21 14:33] LABS: Hemoglobin 6.7 g/dL (14.0-18.0)
[2018-05-21] MEDS: Docusate 100 MG CAP PO SCH (20:06)
[2018-05-21] MEDS: Tamsulosin HCl 0.4 MG CAP PO SCH (20:06)
[2018-05-21] MEDS: fentaNYL Citrate/PF 2,000 MCG in Sodium Chloride 0.9% 60 ML IV PRN (22:05)
[2018-05-22] MEDS: Famotidine 20 MG TAB PO SCH ×2 (07:59→20:28)
[2018-05-22] MEDS: Pantoprazole 40 MG VIAL IVP SCH (08:00)
[2018-05-22] MEDS: Docusate 100 MG CAP PO SCH ×2 (08:00→20:28)
[2018-05-22 08:57] LABS: ALT (SGPT) 13 U/L (8-55); AST (SGOT) 22 U/L (5-34); Albumin 2.7 g/dL (3.4-4.8); Alkaline Phosphatase 994 U/L (40-150); Anion Gap 10 mmol/L (10-20); BUN (Urea Nitrogen) 32 mg/dL (8.4-25.7); Bilirubin, Total 1.1 mg/dL (0.2-1.2); Calc. Creatinine Clearance 55 mL/min (70-130); Calcium 8.6 mg/dL (7.8-10.44); Carbon Dioxide 19 mmol/L (23-31); Chloride 105 mmol/L (98-107); Estimated GFR-MDRD 49; Globulin 3.6 g/dL (2.4-3.5); Glucose 137 mg/dL (83-110); Potassium 4.4 mmol/L (3.5-5.1); Protein, Total 6.3 g/dL (5.8-8.1); Sodium 130 mmol/L (136-145)
[2018-05-22 09:01] LABS: #Eosinphils 0.1 thou/uL (0.0-0.7); #Lymphocytes 1.1 thou/uL (1.20-3.40); #Monocytes 0.4 thou/uL (0.11-0.59); #Neutrophils 2.3 thou/uL (1.40-6.50); %Basophils 0.5 % (0.0-1.0); %Eosinophils 1.3 % (0.0-10.0); %Lymphocytes 27.9 % (21.0-51.0); %Monocytes 11.1 % (0.0-10.0); %Neutrophils 59.2 % (42.0-75.0); Anisocytosis SLIGHT = 6-15 cells (100X) (0-5/hpf); Crenated RBC SLIGHT = 1-5 cells (100X) (None Seen); Hemoglobin 8.8 g/dL (14.0-18.0); MDiff Complete? YES; Mean Corpuscular HGB CONC 32.5 g/dL (32.0-36.0); Mean Corpuscular Hemoglobin 25.3 pg (27.0-31.0); Mean Corpuscular Volume 77.8 fL (78.0-98.0); Mean Platelet Volume 5.6 fL (7.4-10.4); Platelet Count 67 thou/uL (130-400); RBC Distribution Width 22.8 % (11.5-14.5); Red Blood Cell (RBC) Count 3.47 mill/uL (4.70-6.10); White Blood Cell (WBC) Count 3.9 thou/uL (4.8-10.8)
--- NOTE | 2018-05-22 10:18 | PRG ---
DATE OF SERVICE: 05/22/2018 SUBJECTIVE: The patient continues to have good pain relief with CLEANING TEAM MEMBER analgesia. Not walking in the room much. He does have some assistance with therapy and nursing in moving. He states that his legs feel very weak. He developed a cough last night and states that he is urinating some better. He is mostly concerned about his and managing her since he is not able to give any assistance at this point. OBJECTIVE: VITAL SIGNS: Temperature 97.4, pulse of 94, respirations 20, blood pressure 132/65, pulse ox is 93% on room air. GENERAL: He is awake and alert. He is comfortable. HEENT: Mucosa is moist. NECK: Supple. HEART: Regular rate and rhythm. LUNGS: Clear. ABDOMEN: Protuberant, obese. EXTREMITIES: With trace edema. LABORATORY DATA: CBC is pending this morning. Last hemoglobin and hematocrit yesterday afternoon were 6.7 and 21.3. Accu-Cheks of 162, 157, 180, 152. Again, bone biopsy revealed [id number] carcinoma, metastatic. Immunohistochemical staining is still pending. ASSESSMENT AND PLAN: This is a 78-year-old gentleman with a remote history of renal cell carcinoma in 2011, now admitted with intractable back and hip pain and elevated PSA, found to have metastatic [id number] carcinoma on bone biopsy. Further details are pending. 1. Metastatic [id number] carcinoma with osseous involvement. Awaiting Oncology and Radiation Oncology for plan to proceed from here. He is having good pain relief with CLEANING TEAM MEMBER analgesia. 2. Symptomatic anemia. Symptoms have improved after transfusion yesterday. Awaiting followup labs. Continue GI protection. 3. Stage 3 chronic kidney disease. Continue to monitor. 4. Type 2 diabetes, appears to be controlled with insulin sliding scale. 5. Cardiomyopathy with history of congestive heart failure. He has had a cough after the transfusion in spite of Lasix. We will check a chest x-ray today and continue to monitor. Job ID: [id number]
--- NOTE | 2018-05-22 10:58 | RAD ---
PORTABLE CHEST 1 VIEW: Date: 05/22/18 Time: 0921 hours HISTORY: Cough. FINDINGS/IMPRESSION: Comparison made with exam of 05/20/18. The heart is enlarged. No lobar consolidation, pneumothoraces, or large effusions are seen. There is mild prominence of the pulmonary vascularity. Diffuse osteoblastic metastatic disease is again seen. POS: [facility]
[2018-05-22] MEDS: Tamsulosin HCl 0.4 MG CAP PO SCH (20:28)
[2018-05-23 06:55] LABS: ALT (SGPT) 13 U/L (8-55); AST (SGOT) 21 U/L (5-34); Albumin 2.9 g/dL (3.4-4.8); Alkaline Phosphatase 1046 U/L (40-150); Anion Gap 13 mmol/L (10-20); BUN (Urea Nitrogen) 32 mg/dL (8.4-25.7); Bilirubin, Total 0.9 mg/dL (0.2-1.2); Calc. Creatinine Clearance 57 mL/min (70-130); Calcium 8.7 mg/dL (7.8-10.44); Carbon Dioxide 17 mmol/L (23-31); Chloride 107 mmol/L (98-107); Estimated GFR-MDRD 52; Globulin 3.6 g/dL (2.4-3.5); Glucose 137 mg/dL (83-110); Potassium 4.4 mmol/L (3.5-5.1); Protein, Total 6.5 g/dL (5.8-8.1); Sodium 133 mmol/L (136-145)
[2018-05-23 07:39] LABS: Hemoglobin 9.1 g/dL (14.0-18.0); Mean Corpuscular HGB CONC 32.1 g/dL (32.0-36.0); Mean Corpuscular Hemoglobin 24.9 pg (27.0-31.0); Mean Corpuscular Volume 77.6 fL (78.0-98.0); Mean Platelet Volume 4.7 fL (7.4-10.4); Platelet Count 66 thou/uL (130-400); RBC Distribution Width 22.7 % (11.5-14.5); Red Blood Cell (RBC) Count 3.65 mill/uL (4.70-6.10); White Blood Cell (WBC) Count 4.2 thou/uL (4.8-10.8)
[2018-05-23 08:00] LABS: Band 19 % (5-11); Eosinophils 1 % (0-10); Hypochromia SLIGHT = 6-15 cells (100X) (0-5/hpf); Lymphocytes 21 % (21-51); MDiff Complete? YES; Macrocytosis SLIGHT = 6-15 cells (100X) (0-5/hpf); Metamyelocyte 2 % (0-0); Monocytes 7 % (0-10); Myelocyte 1 % (0-0); Neutrophil 48 % (42-75); Nucleated RBC 2 % (0); Ovalocytes SLIGHT = 2-5 cells (100X) (0-1/hpf); PLT Morphology Comment Appears Decreased; Polychromasia SLIGHT = 2-3 cells (100X) (0-2/hpf)
[2018-05-23] MEDS: Pantoprazole 40 MG VIAL IVP SCH (08:15)
[2018-05-23] MEDS: Famotidine 20 MG TAB PO SCH ×2 (08:16→20:46)
[2018-05-23] MEDS: Docusate 100 MG CAP PO SCH ×2 (08:16→20:46)
[2018-05-23] MEDS ORDERED: methylPREDNISolone Sod Succ/PF 125 MG/2 ML VIAL IVP SCH (11:00)
--- NOTE | 2018-05-23 11:36 | PRG ---
DATE OF SERVICE: 05/23/2018 SUBJECTIVE: I did re-evaluate Mr. Ruiz today. 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 Today, he reports that he is having no pain. Thus, his pain seems to be well-controlled with HYDRAULIC RIVETER pump at the present time. He reports that when he is having pain, the pain is in his lower back, but also in his hips and his legs. He reports some weakness in the legs, but states that the weakness has been present for several years and has not changed. He also reports weakness in his arms. He denies any numbness in the legs. He does feel some tightness in the chest and thinks he has more congestion and shortness of breath today. He can ambulate with assistance, but states that he gets short of breath when walking across the room. He voices no other complaints. OBJECTIVE: VITAL SIGNS: Height 6 feet, weight 228 pounds. Blood pressure 150/ 66, pulse 94, temperature 97.3, respirations are 18, O2 saturation is 92% on room air. CONSTITUTIONAL: He is alert and oriented, in no distress. Karnofsky performance status is 60%. NECK: Supple without cervical or supraclavicular adenopathy. LUNGS: Clear to auscultation anteriorly. Breathing nonlabored. CARDIOVASCULAR: Heart, regular rate and rhythm without murmur. He has chronic bilateral lower extremity bronzy edema, which is unchanged. ABDOMEN: Mild diffuse tenderness. Soft. No rebound or guarding. NEUROLOGIC: Motor strength is 4/5 in both upper and lower extremities in all muscle groups tested. LABORATORY DATA: CBC revealed a white blood cell count of 4200 with a hemoglobin of 9.1, hematocrit of 28.3, and platelet count of 66,000. Chemistry group shows a creatinine of 1.58, which is stable. His alkaline phosphatase is 1046, albumin is 2.9. Pathology was interpreted as non-small cell carcinoma. Special stains are pending. Bone scan was again personally reviewed and he has diffuse uptake. This includes extensive uptake in both humeri and both femurs as well as in the acetabulum and in the spine, particularly in the sacroiliac joint. ASSESSMENT: Mr. Ruiz's pain is well-controlled on a HYDRAULIC RIVETER pump. He has diffuse malignancy to the bone, although the primary source is currently not known. We are waiting special immunostains from pathology to determine if this might be a prostate origin versus possibly been renal carcinoma, given his history of renal cell carcinoma. PLAN: Hopefully, at some point, his medication can be moved over from a HYDRAULIC RIVETER pump to oral pain medication. Clinically, he is stable. At this point, we still have to wait the special stains from Pathology to determine the origin of his malignancy. Hopefully, this would be prostate cancer as we have more treatment options for prostate cancer. If this is confirmed to be metastatic prostate cancer, then we can proceed with androgen deprivation therapy, which will help with this pain. It is difficult to offer him radiation therapy at the present. He has such extensive diffuse pain that radiation therapy is really not very feasible. That is why I am hoping this is prostate cancer since we would have more treatment options for that. He does have pancytopenia, which is likely related to extensive marrow replacement by his malignancy. Because of his pancytopenia, he is not a candidate for any injectable form of radiation therapy to help with this pain also. I will continue to follow him with you. We will await final pathology before we make any final treatment recommendations. Job ID: [id number] [facility]
[2018-05-23] MEDS: HumaLOG 300 UNITS/3 ML VIAL SC PRN ×2 (12:00→17:37)
--- NOTE | 2018-05-23 12:42 | PRG ---
DATE OF SERVICE: 05/23/2018 SUBJECTIVE: The patient is currently on JIG MILL OPERATOR pump with controlled pain, although is still his p.r.n., button quite often, he has noted some worsening shortness of breath. At bedside today, he is somewhat sedated, although is arousable. Reviewing his chart, he has a history of reactive airway disease and his Dulera has not been restarted. The patient is requiring oxygen. This feel comfortable and his lungs have poor air movement. The patient is unable to elicit if he is coughing up any sputum at this point in time, currently awaiting pathology report for full plan from the Cancer Team regarding if it is prostatic cancer or return of the patient's prior renal cell carcinoma. The patient's blood sugars appeared to have been stable. The patient was on low-dose prednisone outpatient basis for his rheumatoid arthritis. He has not been on steroids since his admission currently. LABORATORY DATA: Sodium of 133, potassium of 4.4, creatinine of 1.58, and estimated GFR of 52. Hemoglobin of 8.8, MCV of 77, and platelet count of 67. Alkaline phosphatase of 1046. Albumin of 2.9. Urine culture and blood culture are negative at 48 hours. Negative for occult blood on guaiac, given the patient's history of GERD. 2 units PRBCs transfused with appropriate rise in hemoglobin. However, the patient still seems to be short of breath. DIAGNOSTIC DATA: Chest x-ray yesterday with congestion possibly related to osteoblastic metastatic disease per Radiology, however, no lobar consolidation or formal effusions. OBJECTIVE: VITAL SIGNS: Temperature 97.3, oxygen saturation 92% on 1 to 2 L nasal cannula, and blood pressure of 145/68. GENERAL: On exam, the patient is arousable, although somewhat somnolent. HEENT: Head is normocephalic and atraumatic. Extraocular movements are intact. Sclerae are white. Oral mucosa is moist. Nasal cannula is blowing air into bedding replaced on the patient's nose. Counseled the patient on continuing to wear nasal cannula on a short of breath and in bed. HEART: Slightly tachycardic, but regular rhythm. No murmurs auscultated. LUNGS: No wheezes, rhonchi, rales, or crackles. However, poor air movement. ABDOMEN: Protuberant. Positive bowel sounds. No significant tenderness. EXTREMITIES: Lower extremities are without cyanosis but trace edema. ASSESSMENT/PLAN: 1. Metastatic cancer question versus prostate versus renal cell carcinoma primary following up cancer in team's recommendations and biopsy results. 2. Diabetes type 2, covered with sliding scale insulin. 3. Hypertension on watchful waiting as the patient's home blood pressure medications have not been restarted. For the last 24 hours, the systolics have been in 150s. 4. Chronic kidney disease, stage 3. The patient remained stable with his one kidney status post nephrectomy for prior cancer as above. 5. Thrombocytopenia and elevated alkaline phosphatase, likely secondary to metastatic bone disease as above, as well as anemia and lack of production as no current bleeding has been found. 6. The patient with history of aortic stenosis, status post aortic valve replacement with combined type congestive heart failure largely improved following valve replacement. However, the patient's shortness of breath does not appear to be cardiac in nature and given appropriate rise and the patient's asymptomatic anemia likely secondary to lack of production as above from cancer. We will go ahead and replace the patient back on his home Dulera schedule DuoNeb and initiate the patient on a Solu-Medrol burst and follow through with observation of the patient's blood glucose and cell counts. Repeat chest x-ray given the fact that the patient seems acutely worse in his respiratory pattern likely secondary to JIG MILL OPERATOR pump and respiratory depression. The patient still appears to be appropriate for floor status at this point in time. We will continue to follow. Job ID: [id number] [facility]
[2018-05-23] MEDS: Furosemide 40 MG TAB PO SCH (13:54)
--- NOTE | 2018-05-23 17:02 | RAD ---
TWO VIEWS CHEST: Comparison: 05-22-18 FINDINGS: Two views chest shows an enlarged cardiomediastinal silhouette. There are small bilateral pleural eff usions with adjacent atelectasis. Generative changes are seen in the spine. IMPRESSION: Small bilateral pleural effusions with adjacent atelectasis. POS: [facility]
[2018-05-23] MEDS: Mometasone/Formoterol 120 PUFF INHALER INH SCH (18:17)
[2018-05-23] MEDS: Tamsulosin HCl 0.4 MG CAP PO SCH (20:46)
[2018-05-23] MEDS: Carvedilol 3.125 MG TAB PO SCH (20:46)
[2018-05-24] MEDS ORDERED: guaiFENesin/Codeine Phosphate 200 mg/20 mg 10 ml UD Cup PO PRN (01:29)
[2018-05-24] MEDS: Benzonatate 100 MG CAP PO PRN ×3 (01:51→21:07)
[2018-05-24] MEDS: HumaLOG 300 UNITS/3 ML VIAL SC PRN (06:33)
[2018-05-24] MEDS: Mometasone/Formoterol 120 PUFF INHALER INH SCH ×2 (06:33→19:25)
[2018-05-24 07:55] LABS: ALT (SGPT) 12 U/L (8-55); AST (SGOT) 16 U/L (5-34); Albumin 2.7 g/dL (3.4-4.8); Alkaline Phosphatase 1005 U/L (40-150); Anion Gap 13 mmol/L (10-20); BUN (Urea Nitrogen) 33 mg/dL (8.4-25.7); Bilirubin, Total 0.7 mg/dL (0.2-1.2); Calc. Creatinine Clearance 113 mL/min (70-130); Calcium 8.2 mg/dL (7.8-10.44); Carbon Dioxide 16 mmol/L (23-31); Chloride 107 mmol/L (98-107); Estimated GFR-MDRD 55; Globulin 3.4 g/dL (2.4-3.5); Glucose 177 mg/dL (83-110); Potassium 4.8 mmol/L (3.5-5.1); Protein, Total 6.1 g/dL (5.8-8.1); Sodium 131 mmol/L (136-145)
[2018-05-24] MEDS: Folic Acid 1 MG TAB PO SCH (08:00)
[2018-05-24] MEDS: Docusate 100 MG CAP PO SCH ×2 (08:00→21:02)
[2018-05-24] MEDS: Pantoprazole 40 MG VIAL IVP SCH (08:00)
[2018-05-24] MEDS: Carvedilol 3.125 MG TAB PO SCH ×2 (08:01→21:02)
[2018-05-24] MEDS: Furosemide 40 MG TAB PO SCH ×2 (08:01→13:06)
[2018-05-24] MEDS: Famotidine 20 MG TAB PO SCH ×2 (08:01→21:01)
[2018-05-24 08:08] LABS: Band 14 % (5-11); Hemoglobin 8.8 g/dL (14.0-18.0); Lymphocytes 26 % (21-51); MDiff Complete? YES; Mean Corpuscular HGB CONC 32.8 g/dL (32.0-36.0); Mean Corpuscular Hemoglobin 25.2 pg (27.0-31.0); Mean Corpuscular Volume 76.8 fL (78.0-98.0); Mean Platelet Volume 5.1 fL (7.4-10.4); Metamyelocyte 3 % (0-0); Monocytes 10 % (0-10); Neutrophil 47 % (42-75); Nucleated RBC 3 % (0); PLT Morphology Comment Appears Decreased; Platelet Count 66 thou/uL (130-400); Polychromasia SLIGHT = 2-3 cells (100X) (0-2/hpf); RBC Distribution Width 22.6 % (11.5-14.5); Red Blood Cell (RBC) Count 3.48 mill/uL (4.70-6.10); White Blood Cell (WBC) Count 4.7 thou/uL (4.8-10.8)
[2018-05-24] MEDS: Guaifenesin DM 100-10/5 ML UDCUP PO PRN ×2 (13:06→23:52)
--- NOTE | 2018-05-24 15:27 | PRG ---
DATE OF SERVICE: 05/24/2018 SUBJECTIVE: The patient states he is much improved following breathing treatments and initiation of Dulera. Chest x-ray largely remains unchanged. The patient verbalized understanding and waiting for finalization of biopsy results and Cancer Team planning. He has no acute complaints today. OBJECTIVE: VITAL SIGNS: Temperature of 98.1, pulse of 92, respiratory rate of 16, oxygen saturation 93% on room air, and blood pressure 146/68. LABORATORY DATA: Hemoglobin of 8.8, platelet count of 66, and neutrophil percent 47. Sodium of 131, potassium of 4.8, creatinine of 1.5, and blood glucose is 143 to 249 last 16 hours. Alkaline phosphatase was 1005. Albumin of 2.7. IMAGING DATA: Chest x-ray remains unchanged with stigmata of metastatic disease. No infiltrates or effusions suggestive of acute cardiopulmonary disease. PHYSICAL EXAMINATION: GENERAL: The patient is alert and oriented, in no acute distress. HEENT: Head; normocephalic and atraumatic. Extraocular movements intact. Sclerae are clear and white. Oral mucosa is moist. NECK: Supple. HEART: Regular rate and rhythm. No murmurs auscultated. LUNGS: Clear to auscultation bilaterally. No rubs or wheezes. Improved air movement. ABDOMEN: Positive bowel sounds throughout. Slightly hyperactive, protuberant, and nontender. EXTREMITIES: Lower extremities with trace pitting edema. NEUROLOGIC: The patient is alert and oriented x3. No focal deficits. Speech is normal. ASSESSMENT AND PLAN: Bone metastatic disease differential between prostate and renal cell, primary biopsy pending with cancer team's recommendations to follow; diabetes type 2; hypertension; chronic kidney disease stage 3; asthma; thrombocytopenia; symptomatic anemia, secondary to likely production deficiency, congestive heart failure, combined type; status post cardiomyopathy; secondary to aortic stenosis, the patient is currently status post aortic valve replacement. Given the patient's anemia, no formal anticoagulation has currently been undertaken and thrombocytopenia. The patient currently on sequential compression devices for deep venous thrombosis prophylaxis. No home medications registered for anticoagulation regarding heart valve. The patient's sugars remained stable following IV Solu-Medrol x1. We will continue current respiratory medications with DuoNeb and Dulera. Continue to monitor anemia and thrombocytopenia status. Follow up Cancer Team recommendations. The patient has been restarted on half of listed outpatient dose of Lasix 40 mg b.i.d. orally. We will monitor daily weights, first of which was taken this morning. The patient has been noted to be fluid balance positive since admission. We would recommend increase back to 80 tomorrow, if weight remains positive and fluid balance remains positive. The patient has no overt signs of volume overload currently on exam. We will continue sliding scale and Accu-Cheks. The patient remains on fentanyl for pain control regarding bone metastases. We will discuss with Dr. Diego Krishna to take over care tomorrow. Job ID: [id number]
[2018-05-24] MEDS: Tamsulosin HCl 0.4 MG CAP PO SCH (21:02)
[2018-05-24] MEDS: Enoxaparin Sodium 30 MG/0.3 ML SYRINGE SC SCH (21:03)
[2018-05-25] MEDS: Guaifenesin DM 100-10/5 ML UDCUP PO PRN (05:21)
[2018-05-25] MEDS: Benzonatate 100 MG CAP PO PRN ×2 (05:21→11:48)
[2018-05-25] MEDS: Mometasone/Formoterol 120 PUFF INHALER INH SCH ×2 (07:00→19:08)
[2018-05-25] MEDS: Famotidine 20 MG TAB PO SCH ×2 (08:34→20:39)
[2018-05-25] MEDS: Carvedilol 3.125 MG TAB PO SCH ×2 (08:34→20:39)
[2018-05-25] MEDS: Docusate 100 MG CAP PO SCH ×2 (08:34→20:40)
[2018-05-25] MEDS: Pantoprazole 40 MG VIAL IVP SCH (08:34)
[2018-05-25] MEDS: Folic Acid 1 MG TAB PO SCH (08:35)
[2018-05-25] MEDS: Furosemide 40 MG TAB PO SCH (08:35)
[2018-05-25 09:33] LABS: Anion Gap 14 mmol/L (10-20); BUN (Urea Nitrogen) 39 mg/dL (8.4-25.7); Calc. Creatinine Clearance 64 mL/min (70-130); Calcium 8.3 mg/dL (7.8-10.44); Carbon Dioxide 17 mmol/L (23-31); Chloride 108 mmol/L (98-107); Estimated GFR-MDRD 52; Glucose 130 mg/dL (83-110); Potassium 4.5 mmol/L (3.5-5.1); Sodium 134 mmol/L (136-145)
[2018-05-25 10:00] LABS: Band 12 % (5-11); Burr Cells SLIGHT = 2-5 cells (100X) (0-1/hpf); Hemoglobin 8.6 g/dL (14.0-18.0); Lymphocytes 28 % (21-51); MDiff Complete? YES; Mean Corpuscular HGB CONC 32.1 g/dL (32.0-36.0); Mean Corpuscular Hemoglobin 24.8 pg (27.0-31.0); Mean Corpuscular Volume 77.3 fL (78.0-98.0); Mean Platelet Volume 5.9 fL (7.4-10.4); Metamyelocyte 1 % (0-0); Microcytosis SLIGHT = 6-15 cells (100X) (0-5/hpf); Monocytes 14 % (0-10); Myelocyte 2 % (0-0); Neutrophil 43 % (42-75); Nucleated RBC 5 % (0); PLT Morphology Comment Appears Decreased; Platelet Count 67 thou/uL (130-400); Polychromasia SLIGHT = 2-3 cells (100X) (0-2/hpf); Red Blood Cell (RBC) Count 3.47 mill/uL (4.70-6.10); White Blood Cell (WBC) Count 4.5 thou/uL (4.8-10.8)
[2018-05-25] MEDS ORDERED: Acetaminophen 500 MG TAB PO PRN (11:35)
[2018-05-25] MEDS ORDERED: HYDROcodone/Acetaminophen 5/325 mg Tablet PO PRN ×2 (11:36)
[2018-05-25] MEDS ORDERED: Fentanyl 100 MCG/2 ML VIAL SLOW IVP PRN (11:37)
[2018-05-25] MEDS: Furosemide 80 MG TAB PO SCH (14:45)
[2018-05-25] MEDS: Tamsulosin HCl 0.4 MG CAP PO SCH (20:39)
[2018-05-25] MEDS: Enoxaparin Sodium 30 MG/0.3 ML SYRINGE SC SCH (20:40)
--- NOTE | 2018-05-25 21:21 | PRG ---
DATE OF SERVICE: 05/25/2018 HISTORY OF PRESENT ILLNESS: Pathology report for immunostains is still pending. The patient has no acute complaints, reports stable breathing once Dulera and breathing treatments increased as well as verbalized understanding of returning back to home doses of Lasix. The patient denies any worsening swelling of lower extremities. On review of vital signs, temperature of 97.8, pulse of 82, respiratory rate of 18, oxygen saturation 92% on room air, blood pressure 129/64. LABORATORY DATA: Blood work; hemoglobin of 8.6, platelet count of 67. Sodium of 134, potassium of 4.5, creatinine of 1.5, blood glucose 129-154 in last 16 hours. PHYSICAL EXAMINATION: GENERAL: The patient is alert, oriented, no acute distress. HEENT: Head is normocephalic, atraumatic. Extraocular movements are intact. Sclerae are white. Oral mucosa is moist. NECK: Supple. HEART: Regular rate and rhythm. No murmurs auscultated. LUNGS: Clear to auscultation bilaterally. No rubs or wheezes. ABDOMEN: Protuberant, soft, nontender. Positive bowel sounds throughout. EXTREMITIES: Trace pitting edema in bilateral lower extremities. NEUROLOGIC: The patient is alert, oriented x3. No focal deficits. Speech is normal. ASSESSMENT AND PLAN: Metastatic bone disease. Awaiting immunostains on pathology for further cancer team recommendations. The patient has been transitioned to fentanyl patch and p.r.n's. 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 Regarding his history of asthma, continuing breathing treatments. The patient's chronic kidney disease is stable. Thrombocytopenia is clinically stable. No signs or symptoms of bleeding. Symptomatic anemia has improved following 2 units of PRBCs with appropriate rise and has not dipped down since. Back on 80 mg Lasix b.i.d. starting tomorrow for his history of combined systolic/diastolic heart failure following aortic stenosis in the past. We will follow up on cancer team's recommendations. Continue with therapy services at this point in time. Job ID: [id number]
[2018-05-26] MEDS: Guaifenesin DM 100-10/5 ML UDCUP PO PRN ×2 (00:23→14:01)
[2018-05-26] MEDS: Benzonatate 100 MG CAP PO PRN ×2 (00:24→14:01)
[2018-05-26] MEDS: Mometasone/Formoterol 120 PUFF INHALER INH SCH ×2 (06:45→18:24)
[2018-05-26] MEDS: Carvedilol 3.125 MG TAB PO SCH ×2 (08:33→20:17)
[2018-05-26] MEDS: Pantoprazole 40 MG VIAL IVP SCH (08:33)
[2018-05-26] MEDS: Furosemide 80 MG TAB PO SCH ×2 (08:33→13:47)
[2018-05-26] MEDS: Folic Acid 1 MG TAB PO SCH (08:34)
[2018-05-26] MEDS: Docusate 100 MG CAP PO SCH ×2 (08:34→20:17)
[2018-05-26] MEDS: Famotidine 20 MG TAB PO SCH ×2 (08:35→20:10)
--- NOTE | 2018-05-26 09:39 | PRG ---
DATE OF SERVICE: 05/26/2018 SUBJECTIVE: The patient is feeling much better. He said yesterday the pain was down to 1/2 and today he is not having any pain. He is off the PRODUCT DEVELOPMENT SCIENTIST pump and now transitioned to fentanyl patch, not requiring any other p.r.n. pain medicines. He has been ambulating with therapy. Yesterday, he slept all day and was not able to tolerate physical therapy, but states that he is feeling better after celebrating [place] with his family. Denies chest pain or shortness of breath. He does complain of a cough and a rattle in his chest. OBJECTIVE: VITAL SIGNS: Temperature 97.5, pulse of 91, respirations 18, blood pressure 128/66, pulse ox is 93% on room air. GENERAL: He is awake and alert. No acute distress. Speech is clear. NECK: Supple. HEART: Regular rate and rhythm. LUNGS: With rhonchi. No rales, no wheezes. ABDOMEN: Obese. EXTREMITIES: No edema. LABORATORY DATA: White blood cell count 4.7 thousand, hemoglobin and hematocrit 8.8 and 26.7, platelets of 66. Accu-Cheks of 140, 167, 154, 150. Yesterday, sodium 134, potassium 4.5, chloride 108, CO2 of 17, BUN and creatinine 39 and 1.57 with a GFR of 52, calcium of 8.3. Bone biopsy, pathology, final immunostaining is still pending. ASSESSMENT AND PLAN: 1. Biopsy with metastatic non-small cell carcinoma, possibly prostate in origin. I appreciate Oncology following. We will continue to await final pathology. Oncology to determine treatment plan. 2. Pain management. We will continue fentanyl patch. Appreciate anesthesia. 3. History of asthma. Continue breathing treatments for cough. 4. Cardiomyopathy and congestive heart failure, stable, now back on his usual dose of diuretics. I will check chest x-ray for his cough. 5. Recent symptomatic anemia with persistent pancytopenia, status post transfusion of 2 units packed red blood cells and he remained stable. We will continue to follow. DISPOSITION: Hopefully, we will be able to discharge him home once okay with Oncology and treatment has been initiated. Job ID: [id number]
--- NOTE | 2018-05-26 10:47 | RAD ---
PORTABLE CHEST: Date: 05-26-18 Provided Clinical History: Cough. FINDINGS: Comparison is made with a study dated 05-23-18. Cardiac silhouette remains enlarged. Abnormal opacity is seen involving the lateral aspect of the rig ht hemithorax inferiorly which appears increased with respect to the prior examination. Left basilar pleural parenchymal is seen, similar to prior. No evidence for pneumothorax. IMPRESSION: 1. Increasing right pleural opacity. 2. Persistent left basilar pleural parenchymal opacity. 3. Consider correlation with chest CT. POS: [facility]
[2018-05-26] MEDS: HumaLOG 300 UNITS/3 ML VIAL SC PRN ×2 (11:56→18:18)
[2018-05-26 13:23] VITALS: BMI 34.4
[2018-05-26] MEDS: Tamsulosin HCl 0.4 MG CAP PO SCH (20:18)
[2018-05-27 06:53] LABS: Iron 46 ug/dL (65-175); Iron Binding Capacity, Total 179 mcg/dL (261-462)
[2018-05-27 06:56] LABS: Band 5 % (5-11); Hypochromia SLIGHT = 6-15 cells (100X) (0-5/hpf); Lymphocytes 33 % (21-51); MDiff Complete? YES; Mean Corpuscular HGB CONC 31.7 g/dL (32.0-36.0); Mean Corpuscular Hemoglobin 24.3 pg (27.0-31.0); Mean Corpuscular Volume 76.8 fL (78.0-98.0); Mean Platelet Volume 4.9 fL (7.4-10.4); Monocytes 2 % (0-10); Neutrophil 60 % (42-75); Nucleated RBC 6 % (0); PLT Morphology Comment Appears Decreased; Platelet Count 74 thou/uL (130-400); Polychromasia SLIGHT = 2-3 cells (100X) (0-2/hpf); RBC Distribution Width 23.1 % (11.5-14.5); White Blood Cell (WBC) Count 4.8 thou/uL (4.8-10.8)
[2018-05-27 06:57] LABS: Anion Gap 14 mmol/L (10-20); BUN (Urea Nitrogen) 31 mg/dL (8.4-25.7); Calc. Creatinine Clearance 69 mL/min (70-130); Calcium 8.4 mg/dL (7.8-10.44); Carbon Dioxide 20 mmol/L (23-31); Chloride 106 mmol/L (98-107); Estimated GFR-MDRD 61; Glucose 120 mg/dL (83-110); Iron 45 ug/dL (65-175); Potassium 4.1 mmol/L (3.5-5.1); Sodium 136 mmol/L (136-145)
[2018-05-27] MEDS: Mometasone/Formoterol 120 PUFF INHALER INH SCH (07:39)
[2018-05-27] MEDS: Carvedilol 3.125 MG TAB PO SCH (08:16)
[2018-05-27] MEDS: Docusate 100 MG CAP PO SCH (08:16)
[2018-05-27] MEDS: Furosemide 80 MG TAB PO SCH ×3 (08:16→12:59)
[2018-05-27] MEDS: Famotidine 20 MG TAB PO SCH (08:16)
[2018-05-27] MEDS: Pantoprazole 40 MG VIAL IVP SCH (08:17)
[2018-05-27] MEDS: Folic Acid 1 MG TAB PO SCH (08:22)
[2018-05-27] MEDS: HumaLOG 300 UNITS/3 ML VIAL SC PRN (13:00)
[2018-05-27 15:25] VITALS: BP 133/59; TEMP 97.5
--- NOTE | 2018-05-27 15:39 | PRG ---
DATE OF SERVICE: 05/27/2018 SUBJECTIVE: Mr. Ruiz was admitted to the hospital with intractable bone pain. Biopsies were done. It was thought that perhaps he has metastatic prostate cancer. He has history of renal cell cancer many years ago. He did have some chest pressure while here. EKG did not show any acute changes during that episode. He has lost a lot of weight. OBJECTIVE: VITAL SIGNS: His blood pressure most recently 146/71, pulse 80. LUNGS: Clear. CARDIAC: Normal S1, normal S2. There is a soft systolic murmur. ABDOMEN: Soft and nontender. EXTREMITIES: There is only mild edema. PERTINENT LABORATORIES: Creatinine is actually good for him at 1.38, potassium 4.1. The patient is on furosemide 40 mg twice a day. ASSESSMENT: 1. Bone pain, suspected metastatic prostate cancer, biopsy pending. 2. Colonoscopy has been scheduled. 3. Cannot take KIRIT inhibitors due to creatinine being elevated. 4. History of systolic/diastolic heart failure, combined, mostly diastolic. Appears stable at this time. 5. Anemic, but his ferritin level is actually very high, does not need iron. He is given nitroglycerin to take if needed for chest pressure. Job ID: [id number] [facility]
--- NOTE | 2018-05-28 08:57 | DIS ---
DATE OF ADMISSION: 05/17/2018 DATE OF DISCHARGE: 05/27/2018 ADMISSION DIAGNOSES: 1. Intractable back and hip pain. 2. Metastatic bone disease, failed outpatient treatment. DISCHARGE DIAGNOSES: 1. Intractable pain, improved. 2. Metastatic bone disease, primary pending. 3. History of renal cell carcinoma. 4. Cardiomyopathy. 5. Type 2 diabetes. CONSULTATIONS: 1. Anesthesia for pain management. 2. Dr. Fragoso for Urology. 3. Dr. Reynaldo Soto, for Oncology. 4. Dr. Parish Roth, for Radiation Oncology. PROCEDURES: 1. ADVISORY INTERNSHIP analgesia. 2. Bone biopsy. 3. Bone scan. HOSPITAL COURSE: This is a 78-year-old gentleman with multiple medical problems including cardiomyopathy with congestive heart failure, type 2 diabetes, history of renal cell carcinoma treated at [facility] in 2011. Presented to my office with several weeks of worsening back and hip pain. Attempts were made to treat his pain as an outpatient. He was even sent for inpatient rehab with no relief of his pain. His x-rays revealed bony metastasis. Due to his increasing pain, he was admitted for inpatient treatment. Anesthesia was consulted to manage his pain. They used a ADVISORY INTERNSHIP pain pump with fentanyl and had good pain relief. He was eventually transitioned to fentanyl patch prior to discharge. Dr. Fragoso saw the patient in evaluation, and felt like it was consistent with bony metastasis from prostate cancer. He recommended a bone biopsy, which was done with CT guidance and did reveal results of non-small cell carcinoma again with primary unknown as immunochemical staining was still in progress. Dr. Parish Roth, saw the patient in evaluation for possible Radiation Oncology treatments for his pain. He felt like due to the widespread pain and diffuse metastatic disease, he would have a difficult time irradiating and getting relief from his pain from the radiation therapy. The patient continued to have improvement of his pain and function, and was walking with therapy. He did have an episode of feeling short of breath with some chest pressure. He ruled out for an ME. He had improvement with increasing his diuresis. Dr. Samuel saw the patient at the patient's request and recommended discontinuing his diuresis at this time. He did have some symptomatic anemia, where his hemoglobin dropped into the 6's. He was transfused 2 units of packed red blood cells and had significant improvement of his symptoms. He was stable for discharge home to continue with pain management and follow up with Dr. Soto for the results of the bone biopsy and for discussions on further treatment for the cancer. DISCHARGE PHYSICAL EXAMINATION: VITAL SIGNS: Temperature 97.5, pulse of 83, respirations 18, blood pressure 133/59, pulse ox is 92% to 94% on room air. GENERAL: He is awake and alert, in no acute distress. Speech is clear. NECK: Supple. HEART: Regular rate and rhythm with 2/6 systolic ejection murmur. LUNGS: Distant, but no wheeze, rales, or rhonchi. ABDOMEN: Obese, soft. EXTREMITIES: With no edema. He continues to have tenderness in his lumbar spine and painful range of motion of his hips, but much improved. LABORATORY DATA: White blood cell count 4.8 thousand, hemoglobin and hematocrit 9.0 and 28.4 with microcytic indices. Platelets continue to be low at 7400. Sodium 136, potassium 4.1, chloride 106, CO2 of 20, BUN and creatinine 31 and 1.38 with a GFR of 61. Accu-Cheks of 134 and 117. Ferritin was very high at 2391, likely has an acute phase reactant from his bone cancer. BNP was elevated at 1800, but his symptoms had improved. A chest x-ray, which was done prior to discharge revealed pleural opacity, left basilar pleural parenchymal opacity with plans for outpatient CT as followup. DISCHARGE MEDICATIONS: Include, 1. Tylenol p.r.n. 2. Tessalon 200 mg p.r.n. cough. 3. Coreg 3.125 mg b.i.d. 4. Colace 100 mg b.i.d. 5. Cymbalta 20 mg daily. 6. Famotidine 20 mg b.i.d. 7. Duragesic patch 25 mcg every three days. 8. Folic acid 1 mg daily. 9. Lasix 80 mg b.i.d. 10. Humalog sliding scale. 11. DuoNeb p.r.n. 12. Dulera two puffs b.i.d. 13. Zofran p.r.n. nausea and vomiting. 14. Tamsulosin 0.4 mg at bedtime. 15. Potassium 10 mEq daily. 16. Vitamin D daily. 17. Lantus 15 units at bedtime. FOLLOW UP INSTRUCTIONS: The patient to follow up with Dr. Soto in 1 week, with myself in 1 to 2 weeks, Dr. Fragoso in 10 days, Dr. Samuel in 1 to 2 weeks as well. Job ID: [id number]
--- NOTE | 2018-06-01 08:47 | PQF ---
AMAIRANI CASTELLANOGREG DO [id number] CLINICAL DOCUMENTATION CLARIFICATION FORM: POST DISCHARGE DATE: 06/01/2018 ATTN: Dr. Krishna Please exercise your independent, professional judgment in responding to the clarification form. Clinical indicators are provided on the bottom of this form for your review Please specify laterality of iliac biopsy as: Please check appropriate box(s): [ ] Pelvic bone, left (includes iliac crest, ischium) [ ] Pelvic bone, right (includes iliac crest , ischium) [ x] Other diagnosis (please specify site/laterality) In addition, please specify: Present on Admission (POA): [ ] Yes [ x ] No [ ] Unable to determine For continuity of documentation, please document condition throughout progress notes and discharge summary. Thank You. CLINICAL INDICATORS - SIGNS / SYMPTOMS / LABS Per CT guided bone biopsy: The patient's back was prepped and draped in the normal sterile fashion. Using a 10 gauge needle, a 3.0 cm core was obtained. Per pathology report: Bone biopsy--Iliac. RISK FACTORS Metastatic non-small cell carcinoma--bone. TREATMENTS: CT guided bone biopsy 05/19. (This form is maintained as a part of the permanent medical record) 2014 [employer] All Rights Reserved Silvia [email or web address] [phone] MTDD
== END 2018-05-27 15:24 | disposition home health service (06) | DRG 478 ==
LOC: T4-B 12:15
PROVIDERS: ADMIT Family Medicine; ATTEND Family Medicine
PROC: 0QB03ZX Excision of Lumbar Vertebra, Percutaneous Approach, Diagnostic (ICD-10-PCS; principal; 2018-05-19)
PROC: 30233N1 Transfusion of Nonautologous Red Blood Cells into Peripheral Vein, Percutaneous Approach (ICD-10-PCS; 2018-05-21)
DX: C79.51 Secondary malignant neoplasm of bone (principal); I13.0 Hypertensive heart and chronic kidney disease with heart failure and stage 1 through stage 4 chronic kidney disease, or unspecified chronic kidney disease; N18.4 Chronic kidney disease, stage 4 (severe); I50.42 Chronic combined systolic (congestive) and diastolic (congestive) heart failure; I42.9 Cardiomyopathy, unspecified; D61.82 Myelophthisis; E11.22 Type 2 diabetes mellitus with diabetic chronic kidney disease; M06.9 Rheumatoid arthritis, unspecified; N18.9 Chronic kidney disease, unspecified; E78.5 Hyperlipidemia, unspecified; I50.9 Heart failure, unspecified; G89.3 Neoplasm related pain (acute) (chronic); C61 Malignant neoplasm of prostate; D64.9 Anemia, unspecified; Z87.891 Personal history of nicotine dependence; Z85.528 Personal history of other malignant neoplasm of kidney; Z88.0 Allergy status to penicillin; Z88.2 Allergy status to sulfonamides; Z79.82 Long term (current) use of aspirin; Z79.4 Long term (current) use of insulin; Z79.899 Other long term (current) drug therapy; Z90.5 Acquired absence of kidney; Z95.2 Presence of prosthetic heart valve
CPT/HCPCS: 20225; 36415; 36416; 36430; 71045; 71046; 77012; 78306; 80048; 80053; 81003; 81015; 82274; 82728; 83540; 83550; 83880; 85025; 85610; 85730; 86850; 86900; 86901; 87040; 87086; 88184; 88307; 88311; 88333; 88341; 88342; 93005; 93010; 94640; A9503; C9113; G8978-GP-CL; G8979-GP-CI; J1650; J1940; J2250; J2270; J2405; J2930; J3010; J7050; J7620; P9016

== ENCOUNTER 2018-07-03 15:06 | Inpatient (IN) | payer MEDICARE ==
--- NOTE | 2018-07-03 15:56 | RAD ---
CHEST 1 VIEW: Date: 07/03/18 HISTORY: Dyspnea. Shortness of breath. COMPARISON: 06/28/18. FINDINGS: Extensive blastic bone metastasis noted throughout the bony skeleton. Cardiomegaly with bilateral ple ural effusions and mild bilateral vascular congestion. There is a calcification in the right upper qu adrant, which is stable. The pleural effusions may be slightly less than on the prior study. No confl uent lobar pneumonia. IMPRESSION: Cardiomegaly with bilateral pleural effusions and vascular congestion. No confluent pneumonia. Blasti c bone metastasis. Stable calcification in the right upper quadrant. POS: [facility]
[2018-07-03 16:10] LABS: Actual Bicarbonate (HCO3a) 20.3 mEq/L (22-28); Analyzer IN Cardio ER; Base Excess (BEa) -3.9 mEq/L (-2.0 to +3.0); CO2 Tension 33.4 mmHg (35.0-45.0); Calcium, Ionized 1.12 mmol/L (1.12-1.30); Carboxyhemoglobin (COHb) 0.6 gm% (0.0-3.0); Hemoglobin (Hb) 8.8 g/dL (14.0-18.0); O2 Tension (PaO2) 68.8 mmHg (> 70.0); Potassium - ABG Lab 3.91 mmol/L (3.70-5.30)
[2018-07-03 16:11] LABS: Puncture Site RBA
[2018-07-03] MEDS ORDERED: Furosemide 40 MG/4 ML VIAL ONE (17:06)
[2018-07-03] MEDS ORDERED: Aspirin Chewable 81 MG TAB ONE (17:06)
[2018-07-03 17:09] LABS: #Eosinphils 0.1 thou/uL (0.0-0.7); #Monocytes 0.6 thou/uL (0.11-0.59); #Neutrophils 2.8 thou/uL (1.40-6.50); %Eosinophils 2.1 % (0.0-10.0); %Lymphocytes 22.3 % (21.0-51.0); %Monocytes 13.9 % (0.0-10.0); %Neutrophils 61.7 % (42.0-75.0); Hemoglobin 7.9 g/dL (14.0-18.0); Mean Corpuscular HGB CONC 30.4 g/dL (32.0-36.0); Mean Corpuscular Hemoglobin 26.1 pg (27.0-31.0); Mean Platelet Volume 11.1 fL (7.4-10.4); Platelet Count 107 thou/uL (130-400); RBC Distribution Width 24.9 % (11.5-14.5); Red Blood Cell (RBC) Count 3.03 mill/uL (4.70-6.10); White Blood Cell (WBC) Count 4.6 thou/uL (4.8-10.8)
[2018-07-03 17:24] LABS: ALT (SGPT) 11 U/L (8-55); AST (SGOT) 28 U/L (5-34); Alkaline Phosphatase 1026 U/L (40-150); Anion Gap 18 mmol/L (10-20); BUN (Urea Nitrogen) 72 mg/dL (8.4-25.7); Bilirubin, Total 1.3 mg/dL (0.2-1.2); CK (CPK) 69 U/L (30-200); Calc. Creatinine Clearance 0 mL/min (70-130); Calcium 8.9 mg/dL (7.8-10.44); Carbon Dioxide 18 mmol/L (23-31); Chloride 102 mmol/L (98-107); Estimated GFR-MDRD 33; Globulin 3.4 g/dL (2.4-3.5); Glucose 119 mg/dL (83-110); Lipase 53 U/L (8-78); Potassium 4.1 mmol/L (3.5-5.1); Protein, Total 6.4 g/dL (5.8-8.1); Sodium 134 mmol/L (136-145)
[2018-07-03 17:47] LABS: CKMB 1.5 ng/mL (0-6.6)
[2018-07-03] MEDS ORDERED: Ondansetron ODT 4 MG TAB SL PRN (20:31)
[2018-07-03] MEDS ORDERED: Ondansetron PF 4 MG/2 ML Vial IVP PRN (20:31)
[2018-07-03 20:34] LABS: Troponin I 0.052 ng/mL (< 0.028)
[2018-07-03] MEDS ORDERED: Sodium Chloride 0.9% 1,000 ML IV SCH (22:15)
[2018-07-03 23:27] VITALS: BMI 29.9
[2018-07-03 23:41] LABS: Troponin I 0.057 ng/mL (< 0.028)
[2018-07-04] MEDS ORDERED: HumaLOG 300 UNITS/3 ML VIAL SC PRN (08:20)
[2018-07-04] MEDS: Furosemide 80 MG TAB PO SCH ×2 (09:54→17:35)
[2018-07-04] MEDS: Potassium Chloride 10 MEQ TAB PO SCH (09:55)
[2018-07-04] MEDS: Aspirin 325 mg Enteric Coated Tablet PO SCH (09:55)
[2018-07-04] MEDS: Folic Acid 1 MG TAB PO SCH (09:55)
[2018-07-04] MEDS: Carvedilol 3.125 MG TAB PO SCH ×2 (09:55→21:53)
[2018-07-04] MEDS: Furosemide 40 MG/4 ML VIAL SLOW IVP SCH ×2 (09:55→11:47)
[2018-07-04] MEDS: Multivitamin W/ Minerals 1 TAB PO SCH (09:55)
[2018-07-04 15:32] LABS: Hemoglobin 7.7 g/dL (14.0-18.0)
[2018-07-04] MEDS ORDERED: Prevnar 13-Val Conj/PF 0.5 ML SYRINGE IM ONE (21:00)
[2018-07-04] MEDS: Tamsulosin HCl 0.4 MG CAP PO SCH (21:54)
[2018-07-04] MEDS: diphenhydrAMINE 50 MG/ML VIAL IVP PRN (21:55)
--- NOTE | 2018-07-04 22:35 | CON ---
DATE OF CONSULTATION: HISTORY OF PRESENT ILLNESS: Kai Ruiz is a 78-year-old black male, admitted to the emergency room with shortness of breath and hypoxia. In 2012, he underwent cardiac catheterization and was found to have severe aortic stenosis. There was some pressure damping in the left main. However, FFR was 0.96. There was 20-30% and 60% to 70% in mid RCA. He underwent TAVR at [facility] in [place]. His last echocardiogram was in March 2018. Ejection fraction was 50% to 55% with mild left ventricular dilatation, moderate concentric hypertrophy, moderate left atrial enlargement, mild mitral regurgitation, normally functioning bioprosthetic aortic valve with trace aortic insufficiency. He was just admitted in April 2018. It was felt that he had systolic and diastolic heart failure, mostly diastolic. He also had significant bone pain and underwent bone biopsy, which ultimately came back metastatic non-small cell carcinoma. After further evaluation, Mr. Ruiz tells me that this was felt to be from the colon. He has not received any specific therapy, yet. He now is admitted with shortness of breath, apparently was hypoxic at home. He denies any chest discomfort. He has had cough at times, productive of bloody sputum. He denies any fever or chills. In the emergency room, he was given aspirin 324 mg and furosemide 40 mg IV. PAST MEDICAL HISTORY: Diabetes, hypercholesterolemia, hypertension, renal insufficiency, GERD. PAST SURGICAL HISTORY: Bilateral cataract removal and TAVR in 2012. He also has had a left partial nephrectomy for renal cell carcinoma. MEDICATIONS: 1. Tessalon 200 mg t.i.d. p.r.n. 2. Carvedilol 3.125 b.i.d. 3. Colace 100 mg b.i.d. 4. Cymbalta 20 daily. 5. Fentanyl patch 25 mcg every 3rd day. 6. Folic acid 1 mg daily. 7. Furosemide 80 mg b.i.d. 8. Humalog, Lantus, DuoNeb q.6 hours. 9. Multivitamin with minerals. 10. Nitroglycerin p.r.n. 11. Zofran p.r.n. 12. KCl 10 mEq daily. 13. Flomax 0.4 at bedtime. ALLERGIES: 1. PENICILLIN. 2. SULFA. REVIEW OF SYSTEMS: A 12-point review of systems is, otherwise, unremarkable. SOCIAL HISTORY: Smoked in the past. PHYSICAL EXAMINATION: VITAL SIGNS: Blood pressure of 110/53, pulse 88. HEENT: PERRL. NECK: Supple. CHEST: Reveals distant breath sounds with few crackles at the bases. CARDIAC: S1 and S2 normal without any S3 or S4. There is a 1/6 systolic ejection murmur in the aortic area. ABDOMEN: Normal bowel sounds without tenderness or organomegaly. EXTREMITIES: Revealed trace pretibial edema. NEUROLOGIC: Grossly intact. SKIN: Warm and dry. LABORATORY DATA: EKG reveals normal sinus rhythm with lateral T-wave changes. Hemoglobin 7.9, hematocrit 26.1, white count 4600. PH 7.40, pCO2 of 33.4, pO2 of 92.3 on room air. BNP 2916.5. Troponin I 0.057. Sodium 134, potassium 4.1, chloride 102, carbon dioxide 18, BUN 72, creatinine 2.35, alkaline phosphatase 1026. Chest x-ray revealed cardiomegaly with bilateral pleural effusions and vascular congestion. IMPRESSION: 1. History of diastolic heart failure. At present time, he appears to be somewhat over diuresed with his creatinine now versus level of 1.38 in April. 2. Status post transcatheter aortic valve replacement. 3. Mild coronary artery disease treated medically. 4. Metastatic non-small cell carcinoma. The patient states that it is felt that the colon is a primary. He has not been treated for this. 5. History of partial left nephrectomy for renal cell carcinoma. 6. Hypertension. 7. Hypercholesterolemia. 8. Diabetes. 9. Former smoker. PLAN: Echocardiogram will be performed to reassess left ventricular function, although systolic function was normal 2 months ago. We will follow this patient with you. Job ID: [id number] [facility]
--- NOTE | 2018-07-05 00:33 | HP ---
SUBJECTIVE: Shortness of breath and low oxygen level. HISTORY OF PRESENT ILLNESS: This is a 78-year-old gentleman with history of type 2 diabetes, hypertension, chronic kidney disease, congestive heart failure, cardiomyopathy, past history of renal cell carcinoma, and recent diagnosis of metastatic prostate carcinoma to his bones, who was recently discharged from the hospital after increasing back pain and undergoing prostate biopsies. He was stable on discharge, but over the past week, became more short of breath, more difficulty ambulating. He did have a flare of his gout in his knees, which improved with colchicine. He was seen by home health nurse, who found him to be hypoxic and called 911 and brought the patient to the emergency department late last night. In the emergency department, he was diuresed with Lasix. Upon first presenting to the emergency department, he had a pulse ox of 82% on room air. His blood pressure did drop to 79/47 with the diuresis. He is admitted to telemetry for further evaluation. He denied chest pain or palpitations, but did complain of shortness of breath. By the time I saw him the next morning, he was more comfortable as far as his breathing, but continued to have pain all over his body, but worse in his knees. PAST MEDICAL HISTORY: Recent diagnosis of metastatic prostate cancer; remote history of renal cell carcinoma, status post left nephrectomy in 2011; type 2 diabetes; hypertension; hyperlipidemia; moderate to severe aortic stenosis; rheumatoid arthritis; status post aortic valve replacement; and history of congestive heart failure with cardiomyopathy. PAST SURGICAL HISTORY: Recent prostate biopsy last week, left nephrectomy in 2011, appendectomy in 1986, I and D of a left flank abscess in 2013, and aortic valve replacement in 2012. MEDICATIONS: Include, 1. Atorvastatin 40 mg daily. 2. Potassium 10 mEq daily. 3. Humulin sliding scale. 4. Lantus insulin. 5. Coreg 3.125 mg b.i.d. 6. Furosemide 80 mg b.i.d. 7. Waldron 5/325 q.6 p.r.n. breakthrough pain. 8. Fentanyl 25 mcg patch every 3 days. 9. Colace 100 mg daily. 10. Ferrous sulfate 325 mg daily. 11. Albuterol p.r.n. 12. Aspirin 81 mg daily. 13. Protonix 40 mg daily. ALLERGIES: TO PENICILLIN AND SULFAMETHOXAZOLE. IMMUNIZATIONS: Flu shot and pneumonia shot are up-to-date. FAMILY HISTORY: Father , unknown source. Mother with hypertension and heart disease. Siblings with diabetes, hypertension, and heart disease. SOCIAL HISTORY: He is . 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 No smoking. No alcohol. 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 REVIEW OF SYSTEMS: As per the history of present illness. CONSTITUTIONAL: Denies any recent fevers, chills, or recent illness. He does admit to increased weakness. HEENT: No headache or visual or hearing changes. CARDIAC: History of CHF. Denies chest pain. Positive for shortness of breath. No palpitations. PULMONARY: No cough or hemoptysis. GI: Some nausea. No vomiting. Decreased p.o. intake over the past several months. : History of hematuria. History of BPH symptoms. MUSCULOSKELETAL: Joint pain due to his rheumatoid arthritis and gout. Recent flare of his gout last week, treated with colchicine. PSYCHIATRIC: History of depression in the past. PHYSICAL EXAMINATION: VITAL SIGNS: Temperature 98.2, pulse of 97, respirations 18 to 20, pulse ox is 91% to 94% on room air, and blood pressure 115/57. GENERAL: He is awake and alert. He is in mild to moderate distress due to his knee pain. NECK: Supple. Mucosa is moist. HEART: Regular rate and rhythm with 2/6 systolic ejection murmur. LUNGS: With distant breath sounds. Positive rales at the bases. ABDOMEN: Soft, nontender. EXTREMITIES: 1 to 2+ edema. Positive effusion over his knees with tenderness. LABORATORY DATA: White blood cell count 4600, hemoglobin and hematocrit 7.9 and 26.1, and platelets of 107. Repeat H and H are 7.7 and 24.6. ABG with a pH of 7.4, pCO2 of 33, and PO2 of 68. Sodium 134, potassium 4.1, chloride 102, CO2 of 18, BUN and creatinine of 72 and 2.35 with a GFR of 33, and serum glucose of 119. Alkaline phosphatase is elevated at 1026, which is down from last admission, when it was up to 1906. BNP was elevated at 2916. Troponins have been trending at 0.052, 0.052, and 0.057. DIAGNOSTIC DATA: Chest x-ray on admission revealed cardiomegaly with bilateral pleural effusions and vascular congestion. No pneumonia. Positive for blastic bone metastases. ASSESSMENT AND PLAN: 1. This is a 78-year-old gentleman with known congestive heart failure and cardiomyopathy, now with congestive heart failure exacerbation. I will continue to diurese with IV Lasix and replace his potassium. Cardiology to see as well. May need a repeat echocardiogram. 2. Metastatic prostate carcinoma. Further plans per Dr. Soto for Oncology, who has been following him. May consult for treatment options or keep followup as an outpatient. 3. Type 2 diabetes. We will continue insulin sliding scale. We will hold his insulin Lantus until he is taking p.o. better. 4. Anemia, likely anemia of chronic disease as well as kidney failure. I will continue to follow. I will check guaiac of the stool to rule out bleeding from recent prostate biopsy. 5. Chronic kidney disease, stage 4. We will adjust medications appropriately. He typically sees Dr. Valles for Nephrology, likely worsened due to diuresis. 6. Code status. I had discussion with the patient and his sister about his wishes, and he still desires to be full code at this time. He understands the implications and will continue a full code status. Job ID: [id number]
[2018-07-05 06:12] LABS: Anion Gap 18 mmol/L (10-20); BUN (Urea Nitrogen) 78 mg/dL (8.4-25.7); Calc. Creatinine Clearance 33 mL/min (70-130); Calcium 8.8 mg/dL (7.8-10.44); Carbon Dioxide 19 mmol/L (23-31); Chloride 102 mmol/L (98-107); Estimated GFR-MDRD 29; Glucose 123 mg/dL (83-110); Potassium 4.6 mmol/L (3.5-5.1); Sodium 134 mmol/L (136-145)
[2018-07-05 06:49] LABS: Anisocytosis SLIGHT = 6-15 cells (100X) (0-5/hpf); Band 7 % (5-11); Eosinophils 2 % (0-10); Hemoglobin 7.6 g/dL (14.0-18.0); Lymphocytes 19 % (21-51); MDiff Complete? YES; Mean Corpuscular HGB CONC 31.1 g/dL (32.0-36.0); Mean Corpuscular Hemoglobin 26.1 pg (27.0-31.0); Mean Corpuscular Volume 84.2 fL (78.0-98.0); Mean Platelet Volume 10.9 fL (7.4-10.4); Metamyelocyte 2 % (0-0); Monocytes 18 % (0-10); Myelocyte 1 % (0-0); Neutrophil 51 % (42-75); Nucleated RBC 4 % (0); Platelet Count 99 thou/uL (130-400); Platelet Morphology Comment Appears Decreased; Polychromasia SLIGHT = 2-3 cells (100X) (0-2/hpf); Red Blood Cell (RBC) Count 2.91 mill/uL (4.70-6.10)
--- NOTE | 2018-07-05 07:42 | PRG ---
DATE OF SERVICE: 07/05/2018 SUBJECTIVE: The patient is feeling some better today. He is less short of breath, seems to be more awake and alert today. He says that his pain is improved with a fentanyl patch. He denies chest pain. He continues to have some shortness of breath while trying to get out of bed. OBJECTIVE: VITAL SIGNS: Temperature 98.0, pulse of 95, respirations 20, blood pressure 114/55, pulse ox is 92% to 93% on room air. GENERAL: He is awake and alert, in no acute distress. Speech is clear. NECK: Supple. HEART: Regular rate and rhythm with 2/6 systolic ejection murmur. LUNGS: With rales at the bases. ABDOMEN: Obese. EXTREMITIES: With no edema. LABORATORY DATA: White blood cell count 4000, hemoglobin and hematocrit 7.6 and 24.5, platelets of 99. Sodium 134, potassium 4.6, chloride 102, CO2 of 19, BUN and creatinine 78 and 2.65, GFR of 29, serum glucose of 123. BNP is higher at 3205. Chest x-ray is pending from this morning. ASSESSMENT AND PLAN: This is a 78-year-old gentleman with a history of acute on chronic congestive heart failure exacerbation; history of diastolic dysfunction, status post aortic valve replacement; and metastatic prostate carcinoma, now with congestive heart failure exacerbation. 1. Congestive heart failure. We will continue diuresis as per Cardiology. 2. Metastatic prostate carcinoma. Further plans per Dr. Soto. The patient still desires treatment. 3. Type 2 diabetes is stable, just on insulin sliding scale. Continuing to hold his Lantus since he is not taking p.o. 4. Chronic kidney disease, stage 4. We will consult Dr. Valles for fluid balance. 5. Anemia, likely chronic disease as well as due to kidney disease, appears to be stable. May need to transfuse if it gets below 7 of hemoglobin. 6. Disposition: The patient agrees that he will probably need to go to rehab upon discharge prior to going home. Job ID: [id number]
[2018-07-05] MEDS: Folic Acid 1 MG TAB PO SCH (08:18)
[2018-07-05] MEDS: Potassium Chloride 10 MEQ TAB PO SCH (08:18)
[2018-07-05] MEDS: Multivitamin W/ Minerals 1 TAB PO SCH (08:18)
[2018-07-05] MEDS: Aspirin 325 mg Enteric Coated Tablet PO SCH (08:18)
[2018-07-05] MEDS: Carvedilol 3.125 MG TAB PO SCH ×2 (08:18→21:39)
[2018-07-05] MEDS: Furosemide 40 MG/4 ML VIAL SLOW IVP SCH ×2 (08:18→18:03)
--- NOTE | 2018-07-05 08:33 | RAD ---
SINGLE VIEW OF THE CHEST: COMPARISON: 05/26/2018. HISTORY: CHF. FINDINGS: A single view of the chest shows an enlarged but stable cardiomediastinal silhouette. Opacity is see n in the left costophrenic angle which may represent scarring or a small right pleural effusion. Fausto cification is seen beneath the right hemidiaphragm. IMPRESSION: Stable exam. POS: NANO
[2018-07-05] MEDS ORDERED: Allopurinol 300 MG TAB PO SCH (09:00)
[2018-07-05] MEDS ORDERED: Albumin 25% 25 GM/100 ML BOT IVPB ONE (09:31)
--- NOTE | 2018-07-05 10:38 | CON ---
DATE OF CONSULTATION: HISTORY OF PRESENT ILLNESS: Mr. Ruiz is a 78-year-old black male with known history of chronic renal failure from diabetic nephropathy, type 2 diabetes mellitus, status post CHF, history of renal cancer, and history of metastatic prostate cancer to the bones and admitted for shortness of breath. He was found to be in CHF based on the x-ray. He was continued on IV furosemide, but at the decreased dose. His breathing is a little better this morning. We are now being consulted for his acute kidney injury on top of his chronic renal failure. REVIEW OF SYSTEMS: Positive for shortness of breath. Decreased appetite. Decreased energy level. Occasional back pain. No nausea. No vomiting. Positive for shortness of breath. No syncopal episode. No productive cough. Denies any fever or chills. No dysuria. No urinary frequency. No abdominal pain. MEDICATIONS: 1. Allopurinol 300 mg once a day. 2. Ecotrin 325 mg daily. 3. Coreg 3.125 mg daily. 4. Benadryl 25 mg IV q.6 p.r.n. 5. Furosemide 40 mg IV q.12. 6. Humalog sliding scale. 7. KCl 10 mEq once a day. 8. Flomax 0.4 mg once a day. PAST MEDICAL HISTORY: 1. Chronic renal failure. 2. Aortic valve disease. 3. Renal cancer. 4. Metastatic prostate disease - with metastasis to the bones. 5. Depression. 6. History of metastatic non-small cell carcinoma ? Etiology unclear. 7. Hyperlipidemia. 8. Longstanding hypertension. 9. GERD. 10. COPD. PAST SURGICAL HISTORY: Status post prostate biopsy, status post left partial nephrectomy for renal cell carcinoma, status post bilateral cataract removals, status post TAVR - 2013 in [place], status post repair of incisional hernia, status post nephrostomy tube placement, and status post appendectomy. SOCIAL HISTORY: The patient lives in [place]. , 3 children. Smoked cigars/cigars and pipe for the last 50 years, but not smoking now. Alcohol occasionally. 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 Education, high school. No IV drug abuse. ALLERGIES: PENICILLIN. TRAUMA: None. IMMUNIZATION: Up-to-date. FAMILY HISTORY: No family history of ESRD. PHYSICAL EXAMINATION: VITAL SIGNS: Blood pressure is noted at 121/60 with heart rate of 71, respiratory rate 16, temperature 98.2, and pulse ox 94%. GENERAL: Awake, alert, and lethargic, not in overt distress. SKIN: Adequate turgor. HEENT: Slightly pale conjunctivae. Anicteric sclerae. NECK: No neck mass. No carotid bruits. No JVD. CHEST: No deformities. LUNGS: Clear breath sounds. No wheezing. No crackles. HEART: Normal sinus rhythm. No murmur. No gallops. No rubs. ABDOMEN: Globular, soft, and nontender. No masses. EXTREMITIES: No edema. LABORATORY DATA: Laboratories of July 05, 2018; sodium 134, potassium 4.6, chloride 102, carbon dioxide 19, BUN 78, creatinine 2.65, glucose 123, and calcium 8.8. White count 4 and hemoglobin 7.6. June 07, 2018, urinalysis was essentially negative except for rbc of 46. Chest x-ray shows CHF. ASSESSMENT AND PLAN: 1. Acute kidney injury/chronic renal failure - consider hemodynamically-mediated renal dysfunction. Please note, he is on a diuretic regimen and also at the same time, he has poor p.o. intake. My bias is to at least start him on albumin infusion 25 g IV q.6 for the next 3 days. 2. Gout. Adjust allopurinol to 150 mg tablet once a day. 3. Shortness of breath, multifactorial etiology. Underlying congestive heart failure remains as a possibility. Continue current diuretic regimen. In view of the worsening renal dysfunction, I have added albumin infusion with this patient. 4. Anemia. This patient may eventually need Epogen. Consider Hematology consult. Please note, he has underlying metastatic prostate cancer ?.. Job ID: [id number]
[2018-07-05] MEDS: diphenhydrAMINE 50 MG/ML VIAL IVP PRN ×2 (12:17→22:10)
[2018-07-05] MEDS: Albumin 25% 25 GM/100 ML BOT IVPB SCH ×3 (12:17→23:56)
[2018-07-05] MEDS: Tamsulosin HCl 0.4 MG CAP PO SCH (21:38)
[2018-07-06] MEDS: diphenhydrAMINE 50 MG/ML VIAL IVP PRN (04:10)
[2018-07-06] MEDS: Albumin 25% 25 GM/100 ML BOT IVPB SCH ×2 (05:35→11:39)
[2018-07-06] MEDS: Acetaminophen 500 MG TAB PO PRN (06:21)
[2018-07-06] MEDS: Furosemide 40 MG/4 ML VIAL SLOW IVP SCH ×2 (06:45→18:41)
[2018-07-06] MEDS ORDERED: Sodium Chloride 0.9% 10 ML ONE ×2 (08:03→11:01)
--- NOTE | 2018-07-06 09:15 | PRG ---
DATE OF SERVICE: 07/06/2018 SUBJECTIVE: The patient is feeling some better. He is denying pain. Denies chest pain or shortness of breath. States that his knee pain is much improved. Sister says that he had a good appetite yesterday, though he is not enjoying eating a heart-healthy diet at this time. He is sitting at the edge of the bed with little difficulty, but has not been walking yet. OBJECTIVE: VITAL SIGNS: Temperature 97.9, pulse of 85, respirations 19, blood pressure 109/51, pulse ox is 98% on room air. GENERAL: He is awake and alert, in no acute distress. Speech is clear. He moves in bed with some difficulty. HEENT: Mucosa is moist. NECK: Supple. HEART: Regular rate and rhythm with 2/6 systolic ejection murmur. LUNGS: Distant, but no wheeze, rales, or rhonchi. ABDOMEN: Obese. EXTREMITIES: With no edema. LABORATORY DATA: Laboratory data today are pending. Accu-Cheks are 164, 138, and 140. BNP yesterday was 3205. Echocardiogram is pending. Chest x-ray from yesterday reveals cardiomegaly, no overt failure. ASSESSMENT AND PLAN: This is a 78-year-old gentleman with a relatively recent diagnosis of metastatic prostate carcinoma, now admitted with [id number] congestive heart failure, history of diastolic dysfunction, status post aortic valve replacement. 1. Congestive heart failure seems to have been improved. We will continue diuresis as per Cardiology. 2. Bwzmg-xg-dzliyrv kidney disease. Appreciate Dr. Valles continuing the albumin infusion at this time as well as the renally-dosed medications. 3. Metastatic prostate carcinoma. We will ask Dr. Soto to see the patient while he is here. The patient still desires treatment as long as it does not worsen his quality of life. 4. Anemia, which is multifactorial due to chronic disease, metastatic cancer as well as chronic kidney disease. I will follow. Recheck CBC today. 5. Type 2 diabetes. We will continue insulin sliding scale. Job ID: [id number]
[2018-07-06] MEDS: Multivitamin W/ Minerals 1 TAB PO SCH (09:28)
[2018-07-06] MEDS: Aspirin 325 mg Enteric Coated Tablet PO SCH (09:29)
[2018-07-06] MEDS: Allopurinol 300 MG TAB PO SCH (09:29)
[2018-07-06] MEDS: Potassium Chloride 10 MEQ TAB PO SCH (09:29)
[2018-07-06] MEDS: Carvedilol 3.125 MG TAB PO SCH ×2 (09:29→20:53)
--- NOTE | 2018-07-06 09:29 | PRG ---
DATE OF SERVICE: 07/06/2018 SUBJECTIVE: Mr. Ruiz is a 78-year-old black male, who was seen for an acute kidney injury on top of his chronic renal failure. Please note, he has had associated history of metastatic prostate cancer. Initial cardiac echo showed an EF of about 45%. Yesterday due to the possibility that seem, he may have some degree of volume depletion. He was started on albumin infusion. Furthermore, the patient was also noted to be on IV diuretics due to the initial impression that he may have some CHF. He is currently on Lasix at 40 mg IV q.12. No other complaints. He is feeling better and stronger today. OBJECTIVE: VITAL SIGNS: Blood pressure is 109/51, heart rate 85, respiratory rate is 19, temperature 97.9, and pulse ox 98%. GENERAL: Awake, supine, and comfortable, not in distress. SKIN: Adequate turgor. HEENT: Slightly pale conjunctivae. Anicteric sclerae. NECK: No neck mass. No carotid bruits. No JVD. CHEST: No deformities. LUNGS: Clear breath sounds. No wheezing. No crackles. HEART: Normal sinus rhythm. No murmurs. No gallops. No rubs. ABDOMEN: Globular, soft, and nontender. No masses. EXTREMITIES: No edema. No deformities. MEDICATIONS: Medications of July 06, 2018, was reviewed. LABORATORY DATA: Laboratories of July 06, 2018, basic metabolic and CBC are pending. Laboratories of July 05, 2018, reviewed. ASSESSMENT AND PLAN: 1. Acute kidney injury on top of his chronic renal failure. Consider superimposed prerenal azotemia. Continue albumin infusion. Adjust furosemide as needed depending what the creatinine is today. 2. Anemia, stable. Most likely related to his underlying malignancy. Consider consult with his oncologist. The patient is still interested in pursuing treatment of his metastatic prostate cancer. Please note this is metastatic to the bones. We will recheck basic metabolic and CBC in a.m. Overall, agree with current management. Job ID: [id number]
[2018-07-06] MEDS: Folic Acid 1 MG TAB PO SCH (09:30)
[2018-07-06 09:46] LABS: #Basophils 0.1 thou/uL (0.0-0.2); #Eosinphils 0.1 thou/uL (0.0-0.7); #Monocytes 0.5 thou/uL (0.11-0.59); #Neutrophils 2.3 thou/uL (1.40-6.50); %Basophils 1.6 % (0.0-1.0); %Eosinophils 2.1 % (0.0-10.0); %Lymphocytes 24.8 % (21.0-51.0); %Monocytes 11.8 % (0.0-10.0); %Neutrophils 59.7 % (42.0-75.0); Hemoglobin 6.9 g/dL (14.0-18.0); Mean Corpuscular HGB CONC 31.3 g/dL (32.0-36.0); Mean Corpuscular Hemoglobin 26.5 pg (27.0-31.0); Mean Corpuscular Volume 84.7 fL (78.0-98.0); Mean Platelet Volume 6.2 fL (7.4-10.4); Platelet Count 85 thou/uL (130-400); RBC Distribution Width 24.5 % (11.5-14.5); Red Blood Cell (RBC) Count 2.59 mill/uL (4.70-6.10); White Blood Cell (WBC) Count 3.8 thou/uL (4.8-10.8)
[2018-07-06 09:54] LABS: Anion Gap 19 mmol/L (10-20); BUN (Urea Nitrogen) 85 mg/dL (8.4-25.7); Calc. Creatinine Clearance 23 mL/min (70-130); Calcium 9.2 mg/dL (7.8-10.44); Carbon Dioxide 19 mmol/L (23-31); Chloride 101 mmol/L (98-107); Estimated GFR-MDRD 18; Glucose 160 mg/dL (83-110); Sodium 134 mmol/L (136-145)
[2018-07-06 10:18] LABS: Hypochromia SLIGHT = 6-15 cells (100X) (0-5/hpf); MDiff Complete? YES; Platelet Morphology Comment Appears Decreased; Polychromasia MODERATE = 3-4 cells (100X) (0-2/hpf)
[2018-07-06] MEDS ORDERED: Loratadine 10 MG TAB PO PRN (11:38)
--- NOTE | 2018-07-06 12:36 | CON ---
DATE OF CONSULTATION: REASON FOR CONSULT: Prostate cancer. HISTORY OF PRESENT ILLNESS: Mr. Ruiz is a pleasant 78-year-old gentleman with a history of congestive heart failure, cardiomyopathy, and newly diagnosed metastatic prostate cancer, who presented to the emergency room with complaints of shortness of breath. His room air pulse ox in the ER was 82%. He was diuresed with Lasix. He was admitted for further treatment. He has been evaluated by Cardiology. Echocardiogram shows an EF of 45% to 50%. He does have diastolic dysfunction. The patient was diagnosed with prostate cancer in early May. He initially presented to this facility with worsening back pain. He has a remote history of renal cell carcinoma and was followed by Urology on an outpatient basis. He did have an elevated PSA of 11.6. He had diffuse bone mets and biopsy returned metastatic non-small cell carcinoma. Histochemical stains ruled out renal cell and/or consistent with metastatic prostate cancer. The patient saw Dr. Soto in mid May, but has not returned to discuss treatment options. The patient's pain has been managed with a fentanyl patch. He denies any complaints at this time other than itching and allergies. He admits that he has not had a bowel movement in several days. PAST MEDICAL HISTORY: 1. Newly diagnosed prostate cancer with diffuse bone mets. 2. Diabetes mellitus 2. 3. Hypertension. 4. Chronic kidney disease. 5. Hyperlipidemia. 6. Congestive heart failure. 7. Rheumatoid arthritis. 8. Aortic stenosis status post valve replacement. PAST SURGICAL HISTORY: 1. Left nephrectomy. 2. Appendectomy. 3. Aortic valve replacement in 2012. ALLERGIES: TO PENICILLIN AND SULFA. FAMILY HISTORY: Unremarkable. SOCIAL HISTORY: He is , has 4 children. Current everyday smoker. No alcohol or illicit drug use. REVIEW OF SYSTEMS: A 10-point review of systems is negative except for noted in HPI. PHYSICAL EXAMINATION: VITAL SIGNS: Temperature is 97.4, pulse is 77, respiratory rate 17, BP is 104/50, and he is 98% on room air. GENERAL: He is a well-developed, well-nourished male, in no acute distress. HEENT: Normocephalic and atraumatic. Pupils are equal and reactive to light. NECK: Supple. CV: Regular rate and rhythm. LUNGS: Clear. ABDOMEN: Distended. Bowel sounds are positive. No tenderness. EXTREMITIES: No clubbing, cyanosis, or edema. SKIN: No rash. HEMATOLOGIC: No petechiae or purpura. NEUROLOGIC: Nonfocal. PERTINENT LABS AND X-RAYS: Current WBCs are 3.8, hemoglobin 6.9, hematocrit 21.9, platelet count is 85,000, 60% neutrophils, and 25% lymphocytes. Sodium is 134, potassium 5.0, chloride 101, CO2 is 19, BUN is 85, creatinine 3.89, and calcium is 9.4. BNP is 3283. Albumin is 1.3, AST is 28, ALT is 11, and alkaline phosphatase is 1026. Creatine kinase 69. Serum total protein 6.4, albumin 3.0, and globulin 3.4. Last PSA was 92. ASSESSMENT: 1. Metastatic prostate cancer. 2. Diastolic dysfunction. 3. Constipation. DISCUSSION: The patient's congestive heart failure is managed by Cardiology. He has been diuresed. He does have a chronic kidney disease; however, he has some elevation of his function, possibly secondary to diuresis. His creatinine in our office in May was 1.89. He does have anemia, likely due to cancer and chronic disease. His hemoglobin is dropped to 6.9, I will transfuse 1 unit packed RBCs. He states his pain is controlled with fentanyl. He is not on a bowel regimen and has not had a bowel movement in several days. We will start Colace, stool softener, and add MiraLAX daily, which he will need to remain on home since he has narcotics on board. He will follow up with Dr. Soto next week for further recommendations regarding treatment options. Thank you for the consult. We will follow along. Job ID: [id number]
[2018-07-06] MEDS: Docusate 100 MG CAP PO SCH (20:54)
[2018-07-06] MEDS: Tamsulosin HCl 0.4 MG CAP PO SCH (20:54)
[2018-07-07 05:44] LABS: Anion Gap 19 mmol/L (10-20); BUN (Urea Nitrogen) 94 mg/dL (8.4-25.7); Calc. Creatinine Clearance 21 mL/min (70-130); Calcium 9.2 mg/dL (7.8-10.44); Carbon Dioxide 19 mmol/L (23-31); Chloride 100 mmol/L (98-107); Estimated GFR-MDRD 16; Glucose 127 mg/dL (83-110); Potassium 5.1 mmol/L (3.5-5.1); Sodium 133 mmol/L (136-145)
[2018-07-07 06:21] LABS: Band 7 % (5-11); Eosinophils 5 % (0-10); Hemoglobin 8.4 g/dL (14.0-18.0); Lymphocytes 10 % (21-51); MDiff Complete? YES; Mean Corpuscular HGB CONC 31.8 g/dL (32.0-36.0); Mean Platelet Volume 5.1 fL (7.4-10.4); Monocytes 12 % (0-10); Neutrophil 66 % (42-75); Nucleated RBC 3 % (0); Platelet Count 73 thou/uL (130-400); Platelet Morphology Comment Appears Decreased; Polychromasia SLIGHT = 2-3 cells (100X) (0-2/hpf); RBC Distribution Width 23.7 % (11.5-14.5); Red Blood Cell (RBC) Count 3.12 mill/uL (4.70-6.10)
[2018-07-07] MEDS: Furosemide 40 MG/4 ML VIAL SLOW IVP SCH (06:26)
--- NOTE | 2018-07-07 08:50 | PRG ---
DATE OF SERVICE: 07/07/2018 SUBJECTIVE: Mr. Ruiz is a 78-year-old black male, who was seen for an acute kidney injury. At that time, we felt that this could be a hemodynamically-mediated renal dysfunction. He was started on albumin infusion. However, we left the current diuretic regimen as is. However, this morning, his creatinine was noted to have further worsen at 4.36. Yesterday, this was 3.89 and prior to that date was 2.65. Dr. Krishna has discontinued the furosemide. My bias is to do empiric volume repletion with him with normal saline at 100 mL/h. No other complaints. He still has decreased p.o. intake. Please note, due to his history of prostate cancer, I have ordered a renal ultrasound to at least rule out any obstruction with this patient. OBJECTIVE: VITAL SIGNS: Blood pressure 100/51, heart rate 83, respiratory rate 16, temperature 98.1, and pulse ox 94%. GENERAL: The patient is noted to be awake, alert, comfortable, not in overt distress. SKIN: Adequate turgor. HEENT: He has pinkish conjunctivae. Anicteric sclerae. NECK: No neck mass. No carotid bruits. No JVD. CHEST: No deformities. LUNGS: Clear breath sounds. HEART: Normal sinus rhythm. No murmur. No gallops. No rubs. ABDOMEN: Globular, soft, nontender. No masses. EXTREMITIES: No edema. No deformities. MEDICATIONS: Medications of July 07, 2018, was reviewed. LABORATORY DATA: Laboratories of July 07, 2018; white count 4, hemoglobin 8.4. Sodium 133, potassium 5.1, chloride 100, carbon dioxide 19, BUN 94, creatinine 4.36, glucose 127, and calcium 9.2. ASSESSMENT AND PLAN: 1. Acute kidney injury on top of his chronic renal failure, worsening renal dysfunction. Agree to hold the furosemide. Start normal saline at 100 mL to 125 mL/h. We will do a renal ultrasound to at least rule out superimposed renal obstruction. 2. 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 3. Anemia, much improved with blood transfusion. No indication for any dialytic intervention. Job ID: [id number]
[2018-07-07] MEDS: Sodium Chloride 0.9% 1,000 ML IV SCH ×2 (09:29→18:21)
[2018-07-07] MEDS: Polyethylene Glycol 3350 17 GM Packet PO SCH (09:29)
[2018-07-07] MEDS: Folic Acid 1 MG TAB PO SCH (09:30)
[2018-07-07] MEDS: Allopurinol 300 MG TAB PO SCH (09:30)
[2018-07-07] MEDS: Bicalutamide 50 MG TAB PO SCH (09:30)
[2018-07-07] MEDS: Potassium Chloride 10 MEQ TAB PO SCH (09:30)
[2018-07-07] MEDS: Docusate 100 MG CAP PO SCH ×2 (09:30→20:49)
[2018-07-07] MEDS: Carvedilol 3.125 MG TAB PO SCH ×2 (09:30→20:49)
[2018-07-07] MEDS: Multivitamin W/ Minerals 1 TAB PO SCH (09:30)
[2018-07-07] MEDS: Aspirin 325 mg Enteric Coated Tablet PO SCH (09:31)
--- NOTE | 2018-07-07 10:46 | ULT ---
ULTRASOUND RENAL BILATERAL STANDARD: HISTORY: Renal failure. COMPARISON: Renal ultrasound from 03/30/2018. FINDINGS: The right kidney measures 10.5 x 5.8 x 6.5 cm with a 1.4 cm exophytic inferior pole cyst. The left k idney measures 8 x 5.3 x 5.2 cm. No mass, hydronephrosis, or abnormal calcifications. Prior partial left nephrectomy. Prevoid urinary bladder volume is 43 mL. Urinary bladder is unremar kable. IMPRESSION: No evidence for obstructive uropathy. POS: [facility]
[2018-07-07] MEDS: Tamsulosin HCl 0.4 MG CAP PO SCH (20:49)
[2018-07-08] MEDS: Sodium Chloride 0.9% 1,000 ML IV SCH ×2 (03:43→13:37)
--- NOTE | 2018-07-08 04:18 | PRG ---
DATE OF SERVICE: 07/07/2018 SUBJECTIVE: The patient continues to improve as far as his shortness of breath. He denies chest pain. His breathing is much improved. He still has not been out of bed much. States that he walked to the bathroom. Knee pain is much improved. Still not much of a good appetite. Continues to feel weak. No nausea or vomiting. OBJECTIVE: VITAL SIGNS: Temperature 98.1, pulse of 83, respirations 16, blood pressure 100/51, pulse ox is 94% on room air. GENERAL: He is awake and alert. He is in good spirits. No acute distress. HEENT: Mucosa is moist. NECK: Supple. HEART: Regular rate and rhythm with 2/6 systolic ejection murmur. LUNGS: Clear. ABDOMEN: Soft. EXTREMITIES: No edema. LABORATORY DATA: White blood cell count 4000, hemoglobin and hematocrit 8.4 and 26.5, and platelets of 73. Sodium 133, potassium 5.1, chloride 100, CO2 of 19, BUN and creatinine 94 and 4.36 with a GFR of 16. Serum glucose of 127, calcium of 9.2. Renal ultrasound showed no obstruction. Echocardiogram revealed mildly depressed left ventricular function with ejection fraction of 45% to 50%. Positive for diastolic dysfunction. Severely dilated left atrium, [id number] tricuspid regurgitation. ASSESSMENT AND PLAN: This is a 78-year-old gentleman with a history of cardiomyopathy and diastolic dysfunction, admitted with congestive heart failure exacerbation, renal failure, and recent diagnosis of metastatic prostate carcinoma. 1. Congestive heart failure seems to be improved and does not seem to be needing diuresis at this time. 2. Acute on chronic kidney disease with worsening renal function. Dr. Valles continuing albumin infusion. May improve after blood transfusion as well. 3. Metastatic prostate carcinoma. Appreciate Oncology following until discussed with patient about treatment plans. 4. anemia, improved after transfusion of 1 unit. We will continue to monitor closely. 5. Type 2 diabetes. We will continue insulin sliding scale. Job ID: [id number]
[2018-07-08 06:25] LABS: Anion Gap 22 mmol/L (10-20); BUN (Urea Nitrogen) 94 mg/dL (8.4-25.7); Calc. Creatinine Clearance 22 mL/min (70-130); Calcium 9.2 mg/dL (7.8-10.44); Carbon Dioxide 15 mmol/L (23-31); Chloride 102 mmol/L (98-107); Estimated GFR-MDRD 17; Glucose 122 mg/dL (83-110); Potassium 5.2 mmol/L (3.5-5.1); Sodium 134 mmol/L (136-145)
[2018-07-08 06:31] LABS: Band 9 % (5-11); Hemoglobin 8.7 g/dL (14.0-18.0); Lymphocytes 20 % (21-51); MDiff Complete? YES; Mean Corpuscular HGB CONC 29.8 g/dL (32.0-36.0); Mean Corpuscular Hemoglobin 25.5 pg (27.0-31.0); Mean Corpuscular Volume 85.5 fL (78.0-98.0); Mean Platelet Volume 5.7 fL (7.4-10.4); Microcytosis SLIGHT = 6-15 cells (100X) (0-5/hpf); Monocytes 5 % (0-10); Neutrophil 66 % (42-75); Nucleated RBC 7 % (0); Ovalocytes SLIGHT = 2-5 cells (100X) (0-1/hpf); Platelet Count 90 thou/uL (130-400); Platelet Morphology Comment Appears Decreased; Polychromasia SLIGHT = 2-3 cells (100X) (0-2/hpf); RBC Distribution Width 24.1 % (11.5-14.5); Red Blood Cell (RBC) Count 3.43 mill/uL (4.70-6.10); White Blood Cell (WBC) Count 4.5 thou/uL (4.8-10.8)
[2018-07-08] MEDS ORDERED: Furosemide 40 MG TAB PO SCH (07:30)
--- NOTE | 2018-07-08 08:15 | PRG ---
DATE OF SERVICE: 07/08/2018 SUBJECTIVE: The patient states that he is feeling okay at this time. He continues to feel weak. He was able to walk with a walking program in the hallway. He denies chest pain. Breathing has improved. He has not been short of breath. States that he has a poor appetite due to the food not being good. The pain is improved. Denies nausea or vomiting. Good appetite. OBJECTIVE: VITAL SIGNS: Temperature 97.5, pulse of 87, respirations 20, blood pressure 110/55, and pulse ox is 92% on room air. GENERAL: He is awake and alert. He does seem lethargic this morning. HEENT: Mucosa is moist. NECK: Supple. HEART: Regular rate and rhythm. A 2/6 systolic ejection murmur. LUNGS: Clear bilaterally. ABDOMEN: Soft, nontender, nondistended. EXTREMITIES: No edema. LABORATORY DATA: White blood cell count 4500, hemoglobin and hematocrit 8.7 and 29.3, platelets of 90,000. Sodium 134, potassium 5.2, chloride 102, CO2 of 15, BUN and creatinine 94 and 4.1 with GFR of 17. Accu-Chek of 122. Renal ultrasound showed no active disease. ASSESSMENT AND PLAN: This is a 78-year-old gentleman with a history of cardiomyopathy with diastolic dysfunction, renal failure, type 2 diabetes, admitted with congestive heart failure exacerbation and recent diagnosis of metastatic prostate carcinoma. 1. Congestive heart failure is resolved. We will discontinue diuresis. 2. Acute on chronic kidney disease. Slight improvement from yesterday with IV fluids per Dr. Valles. We will continue to monitor closely. 3. Anemia, multifactorial, improved after transfusion. We will continue to monitor closely likely due to chronic disease, kidney failure, recent prostate biopsy. 4. Metastatic prostate carcinoma followed by Oncology. Initiating treatment with Casodex yesterday per Dr. Soto. 5. Analgesia. We will continue fentanyl patch for pain management. Continue bowel regimen. 6. Disposition. Case management working on placement with half-way for both the patient and his is also inpatient at this time. Job ID: [id number]
[2018-07-08] MEDS: Allopurinol 300 MG TAB PO SCH (09:19)
[2018-07-08] MEDS: Carvedilol 3.125 MG TAB PO SCH ×2 (09:20→21:38)
[2018-07-08] MEDS: Bicalutamide 50 MG TAB PO SCH (09:20)
[2018-07-08] MEDS: Aspirin 325 mg Enteric Coated Tablet PO SCH (09:20)
--- NOTE | 2018-07-08 09:20 | PRG ---
DATE OF SERVICE: 07/08/2018 SUBJECTIVE: Mr. Ruiz is a 78-year-old black male with known history of metastatic prostate cancer, admitted for generalized malaise and mild shortness of breath. I evaluated the patient and I felt that he may simply be having a prerenal azotemia. I decided to give him albumin infusion, but no improvement with renal function was noted. I started him on normal saline yesterday. Creatinine seems to be plateauing. No other complaints today. No chest pain or shortness of breath. OBJECTIVE: VITAL SIGNS: Blood pressure is 102/50, heart rate 84, respiratory rate 20, temperature 96.6, and pulse ox 93%. GENERAL: Noted to be awake, alert, comfortable, not in distress. SKIN: Adequate turgor. HEENT: Pinkish conjunctiva. Anicteric sclerae. No neck mass. No carotid bruits. No JVD. CHEST: No deformities. LUNGS: Clear breath sounds. HEART: Normal sinus rhythm. No murmurs, no gallops, no rubs. ABDOMEN: Globular, soft, nontender. No masses. EXTREMITIES: No edema. No deformities. MEDICATIONS: Medications of July 08, 2018, reviewed. LABORATORY DATA: Laboratories of July 08, 2018; white count 4.5, hemoglobin 8.7. Sodium 134, potassium 5.2, chloride 102, carbon dioxide 15, BUN 94, creatinine 4.1, glucose 122, calcium 9.2. ASSESSMENT AND PLAN: 1. Acute kidney injury on top of his chronic renal failure, superimposed prerenal azotemia. Continuing IV hydration. Continue normal saline. No indication for any dialysis. 2. Metastatic prostate cancer. Continue supportive care. Oncology is following. 3. Metabolic acidosis. Start sodium bicarbonate 650 mg p.o. t.i.d. Overall agree with current management. Job ID: [id number]
[2018-07-08] MEDS: Potassium Chloride 10 MEQ TAB PO SCH ×2 (09:21→10:28)
[2018-07-08] MEDS: Folic Acid 1 MG TAB PO SCH (09:21)
[2018-07-08] MEDS: Docusate 100 MG CAP PO SCH ×2 (09:21→21:41)
[2018-07-08] MEDS: Multivitamin W/ Minerals 1 TAB PO SCH (09:21)
[2018-07-08] MEDS: Polyethylene Glycol 3350 17 GM Packet PO SCH (09:22)
[2018-07-08] MEDS: Sodium Bicarbonate Tab 325 MG TAB PO SCH ×2 (17:36→21:39)
[2018-07-08] MEDS ORDERED: Furosemide 40 MG/4 ML VIAL ONE (18:16)
--- NOTE | 2018-07-08 18:22 | PDOC.EVN ---
Event Note - Event Note Event Note: responded to code greem. O2 sat 4 Li O2-84&. bp 110/60. basilar rales. discussed with cardiology. move to IMCU, BIPAP, lasix 20 mg IVP
[2018-07-08 18:47] LABS: Actual Bicarbonate (HCO3a) 18.1 mEq/L (22-28); Base Excess (BEa) -6.2 mEq/L (-2.0 to +3.0); CO2 Tension 31.1 mmHg (35.0-45.0); Calcium, Ionized 1.11 mmol/L (1.12-1.30); Carboxyhemoglobin (COHb) 1.6 gm% (0.0-3.0); Hemoglobin (Hb) 8.8 g/dL (14.0-18.0); O2 Tension (PaO2) 193.4 mmHg (> 70.0); Potassium - ABG Lab 4.84 mmol/L (3.70-5.30); pH, Arterial 7.38 (7.35-7.45)
--- NOTE | 2018-07-08 18:56 | RAD ---
CHEST ONE VIEW: 07/08/18 HISTORY: Hypoxia. COMPARISON: Radiograph 07/03/18. FINDINGS: Interval development of a moderate sized right pleural effusion. Atelectatic changes throughout the r ight lung. Moderate edema. Small left effusion. Marked cardiomegaly. Extensive osseous blastic metast atic disease. Right subdiaphragmatic calcification is similar. IMPRESSION: Worsening effusion and pulmonary edema. POS: [facility]
[2018-07-08] MEDS ORDERED: Furosemide 40 MG/4 ML VIAL SLOW IVP SCH (19:00)
[2018-07-08 20:47] LABS: Puncture Site RBA
[2018-07-08 20:48] LABS: ALV-art Gradient 52.925 (0-20)
[2018-07-08] MEDS: Tamsulosin HCl 0.4 MG CAP PO SCH (21:39)
[2018-07-09 05:26] LABS: Hemoglobin 8.6 g/dL (14.0-18.0)
[2018-07-09 05:43] LABS: Anion Gap 16 mmol/L (10-20); BUN (Urea Nitrogen) 95 mg/dL (8.4-25.7); Calc. Creatinine Clearance 23 mL/min (70-130); Calcium 9.3 mg/dL (7.8-10.44); Carbon Dioxide 18 mmol/L (23-31); Chloride 102 mmol/L (98-107); Estimated GFR-MDRD 19; Glucose 124 mg/dL (83-110); Potassium 4.9 mmol/L (3.5-5.1); Sodium 131 mmol/L (136-145)
[2018-07-09] MEDS: Polyethylene Glycol 3350 17 GM Packet PO SCH (08:59)
[2018-07-09] MEDS: Sodium Bicarbonate Tab 325 MG TAB PO SCH ×3 (09:00→21:17)
[2018-07-09] MEDS: Bicalutamide 50 MG TAB PO SCH (09:00)
[2018-07-09] MEDS: Multivitamin W/ Minerals 1 TAB PO SCH (09:00)
[2018-07-09] MEDS: Carvedilol 3.125 MG TAB PO SCH ×2 (09:00→21:17)
[2018-07-09] MEDS: Allopurinol 300 MG TAB PO SCH (09:00)
[2018-07-09] MEDS: Docusate 100 MG CAP PO SCH ×2 (09:00→21:17)
[2018-07-09] MEDS: Aspirin 325 mg Enteric Coated Tablet PO SCH (09:00)
[2018-07-09] MEDS: Folic Acid 1 MG TAB PO SCH (09:00)
[2018-07-09] MEDS: diphenhydrAMINE 50 MG/ML VIAL IVP PRN (09:48)
--- NOTE | 2018-07-09 10:42 | PRG ---
DATE OF SERVICE: 07/09/2018 SUBJECTIVE: This is family medicine weekend can call coverage for Dr. Krishna, his PCP. Late yesterday, apparently, he had a respiratory distress after receiving IV fluids most of the day and due to his renal insufficiency and failure that caused some overload to his heart and he became very short of breath, and a code green was called and he was transported to the MICU and put on BiPAP and diuresed with IV Lasix. His urine output is moderate at best with the Lasix, but this morning he does feel better. He is not having any tachypnea or respiratory distress. OBJECTIVE: VITAL SIGNS: Show afebrile at 99.1, blood pressure is 111/55 with a pulse of 82. HEENT: He is nonicteric to his sclerae. LUNGS: Show some minimal bibasilar rales. HEART: S1 and S2 with no rubs or gallops. He has a 2/6 systolic ejection murmur. ABDOMEN: Soft, nontender, nondistended. Bowel sounds throughout. EXTREMITIES: Show good palpable pulses in all four extremities. He has some minimal edema to both feet. NEUROLOGICAL: He is alert and oriented x4. No motor or sensory deficits appreciated. LABORATORY DATA: Sodium as low as 131, potassium is 4.9, chloride is 102, bicarb is 18, his BUN is 95, his creatinine is 3.8, and glucose 124. H and H are low at 8.6 and 27.6. ASSESSMENT: Recent respiratory distress, requiring BiPAP, improved with diuresis and BiPAP. He has anemia possibly from chronic disease and also has hyponatremia with acute on chronic renal failure, likely all associated together and also has a history of metastatic prostate cancer. He has coronary artery disease. He is status post transcatheter aortic valve replacement procedure for his aortic valve replacement. Dr. Valles is seeing him for his kidneys. Dr. Causey is seeing him for his heart. The plan is to watch him for the rest of today as far as his respiratory status goes, some electrolytes, and hopefully move him back out to the floor either later today or tomorrow. Job ID: [id number]
--- NOTE | 2018-07-09 12:41 | CON ---
DATE OF CONSULTATION: 07/09/2018 HISTORY OF PRESENT ILLNESS: A 78-year-old gentleman, who has been in the hospital since 07/03/2018, we are consulted today on 07/09/2018 regarding hypoxemia. He was transferred after he was called a code green to the MICU, sats were less than 90%. Dr. Hein spoke with Dr. Stark. The patient has known history of end-stage renal disease. Dr. Abe Stark is the attending physician for Dr. Krishna. This morning, he said he is having some difficulty breathing, but he is better. He has known history of end-stage renal disease, history of prostate cancer, congestive heart failure, EF was 45% suggestive of diastolic dysfunction. His x-ray taken yesterday showed evidence of bilateral pleural effusion, small lung volumes. Most days, he says he can barely walk 50 feet without getting markedly short of breath. Former smoker at least a pack a day for 50 plus years. PAST MEDICAL HISTORY: 1. COPD. 2. Renal failure. 3. Renal cancer. 4. Metastatic prostate cancer. 5. Depression. 6. Hypertension. 7. Reflux. 8. COPD. PAST SURGICAL HISTORY: Apparently, has included; 1. Prostate biopsy. 2. Nephrectomy, renal cell. 3. Cataract surgery. 4. TAVR in [place] in 2012. 5. Incisional hernia repair. 6. Nephrostomy tube placement. 7. Appendectomy. SOCIAL HISTORY: Alcohol, none at this time. MEDICATIONS: He has list of medicines; 1. Durogesic patch 25. 2. Flomax 0.4. 3. Potassium 10. 4. Dulera 200 two puffs twice a day. 5. Lasix 80 twice a day. 6. Folic acid. 7. Pepcid 20. 8. Coreg 3.25. ALLERGIES: PENICILLIN AND SULFA. REVIEW OF SYSTEMS: Otherwise unremarkable. PHYSICAL EXAMINATION: GENERAL: He appears to be still encephalopathic, but awake, responsive. VITAL SIGNS: His O2 saturations are 95% this morning on room air, respirations of 20, pulse is 80, blood pressure is 99/42. CHEST: Bilateral rhonchi and crackles. CARDIAC: Normal S1, S2. No gallops. ABDOMEN: No masses. LABORATORY DATA: PO2 was 193, pCO2 of 30, pH 7.38 on 40% FiO2. Creatinine is 3.8, BUN is 95. IMPRESSION: 1. Respiratory failure secondary to congestive heart failure, bilateral pleural effusion, renal failure. 2. Chronic obstructive pulmonary disease. 3. Encephalopathy. PLAN: I have initiated neb treatments for the time being. Otherwise, continue care as per Cardiology and Nephrology. Pulmonary will follow while in the MICU. TIME SPENT: Consultation note, 70 minutes, 50% direct patient care. Job ID: [id number]
[2018-07-09] MEDS: Tamsulosin HCl 0.4 MG CAP PO SCH (21:17)
[2018-07-10] MEDS: Multivitamin W/ Minerals 1 TAB PO SCH (09:50)
[2018-07-10] MEDS: Bicalutamide 50 MG TAB PO SCH (09:50)
[2018-07-10] MEDS: Aspirin 325 mg Enteric Coated Tablet PO SCH (09:50)
[2018-07-10] MEDS: Docusate 100 MG CAP PO SCH ×2 (09:50→20:37)
[2018-07-10] MEDS: Sodium Bicarbonate Tab 325 MG TAB PO SCH ×3 (09:50→20:37)
[2018-07-10] MEDS: Carvedilol 3.125 MG TAB PO SCH ×2 (09:50→20:37)
[2018-07-10] MEDS: Folic Acid 1 MG TAB PO SCH (09:50)
[2018-07-10] MEDS: Furosemide 40 MG/4 ML VIAL SLOW IVP SCH (09:51)
[2018-07-10] MEDS: Polyethylene Glycol 3350 17 GM Packet PO SCH (09:51)
[2018-07-10] MEDS: Allopurinol 300 MG TAB PO SCH (09:51)
--- NOTE | 2018-07-10 10:52 | PRG ---
DATE OF SERVICE: 07/10/2018 SUBJECTIVE: This morning, he denies any pain or discomfort. OBJECTIVE: VITAL SIGNS: His sats are 100% on room air. Blood pressure is 96/53, pulse is 80, sats 97% to 100% as noted, respiratory rate 18. CHEST: Decreased breath sounds. No wheezing. CARDIAC: Normal S1, S2. No gallops. ABDOMEN: No masses. ASSESSMENT AND PLAN: Respiratory failure, congestive heart failure, pleural effusion, chronic obstructive pulmonary disease, encephalopathy. He appears to be somewhat improved. No lab was done this morning. Nephrology was consulted following. Job ID: [id number]
--- NOTE | 2018-07-10 11:03 | PRG ---
DATE OF SERVICE: 07/10/2018 SUBJECTIVE: Mr. Ruiz is a 78-year-old black male, who was seen by the Renal Service for his acute kidney injury on top of his chronic renal failure. During this hospitalization, he developed CHF. His IV fluid has been discontinued. Initially, I felt that the patient has some prerenal component and that is why he was on the normal saline. It looks like he did not tolerate this. He was initially started on Lasix 80 mg. He was initially started on IV Lasix. I have decided due to the CHF to continue the Lasix at 40 mg IV daily. He is feeling better this morning. He voices no new complaints. However, his blood pressure was noted to be on the low side. He is asymptomatic. He has no chest pain or shortness of breath. OBJECTIVE: VITAL SIGNS: Blood pressure is 96/53, heart rate 79, respiratory rate 16, O2 saturation 97%. GENERAL: Noted to be awake, alert, supine, comfortable, not in overt distress. SKIN: Adequate turgor. HEENT: He has slightly pale conjunctivae. Anicteric sclerae. NECK: No neck mass. No carotid bruits. No JVD. CHEST: No deformities. LUNGS: Decreased breath sounds. HEART: Normal sinus rhythm. No murmur. No gallops. No rubs. ABDOMEN: Globular, soft, and nontender. No masses. EXTREMITIES: No edema. No deformities. MEDICATIONS: Medications of July 10, 2018, reviewed. LABORATORY DATA: Laboratories of July 09, 2018; hemoglobin 8.6. Sodium 131, potassium 4.9, chloride 102, carbon dioxide 18, BUN 95, creatinine 3.81, glucose 124, calcium 9.3. ASSESSMENT AND PLAN: 1. Acute kidney injury/chronic renal failure - creatinine yesterday noted at 3.81. This is actually slightly improved from July 08, 2018, where his creatinine was 4.1. I have restarted him back on his Lasix. There is no indication for any dialytic intervention. We will recheck another CBC and basic metabolic panel with this patient. Unclear if this patient is actually a good dialysis candidate due to his history of prostate cancer with metastases. I will discuss this with the patient tomorrow. 2. Metastatic prostate cancer - currently on Casodex. Oncology is following. 3. Anemia. Continue to observe. Recheck CBC and basic metabolic panel in a.m. Job ID: [id number]
--- NOTE | 2018-07-10 14:32 | RAD ---
SINGLE VIEW OF THE CHEST: COMPARISON: 07/08/2018. HISTORY: CHF. FINDINGS: A single view of the chest shows an enlarged but stable cardiomediastinal silhouette. There is a sma ll to moderate right pleural effusion. This is stable compared to the prior examination. Calcificat ion is seen beneath the right hemidiaphragm. IMPRESSION: Stable exam. POS: [facility]
--- NOTE | 2018-07-10 15:31 | PRG ---
DATE OF SERVICE: 07/10/2018 SUBJECTIVE: Mr. Ruiz is fairly stable in the ICU. He still needed some of the BiPAP last night. OBJECTIVE: VITAL SIGNS: His blood pressure is slightly low. LUNGS: Clear. HEART: Unchanged scattered 1 to 2/6 systolic ejection murmur consistent with his valvular repair. ABDOMEN: Soft and nontender. LABORATORY DATA: None were done today, but will not be done tomorrow, because he has leveled off, but significant anemia with H and H of 8.6 and 27.6 respectively. ASSESSMENT: Shortness of breath, acute on chronic renal disease, metabolic acidosis, metastatic prostate cancer. The renal situation is stabilized. At this point, Dr. Valles is trying to decide if he needs to put him on dialysis. Job ID: [id number]
[2018-07-10] MEDS: Tamsulosin HCl 0.4 MG CAP PO SCH (20:37)
[2018-07-10] MEDS: diphenhydrAMINE 50 MG/ML VIAL IVP PRN (20:40)
[2018-07-11 05:19] LABS: #Eosinphils 0.1 thou/uL (0.0-0.7); #Lymphocytes 0.8 thou/uL (1.20-3.40); #Monocytes 0.4 thou/uL (0.11-0.59); #Neutrophils 2.2 thou/uL (1.40-6.50); %Basophils 0.4 % (0.0-1.0); %Eosinophils 2.8 % (0.0-10.0); %Lymphocytes 23.4 % (21.0-51.0); %Monocytes 10.8 % (0.0-10.0); %Neutrophils 62.5 % (42.0-75.0); Hemoglobin 8.4 g/dL (14.0-18.0); Mean Corpuscular HGB CONC 31.4 g/dL (32.0-36.0); Mean Corpuscular Volume 85.9 fL (78.0-98.0); Mean Platelet Volume 5.3 fL (7.4-10.4); Platelet Count 77 thou/uL (130-400); Red Blood Cell (RBC) Count 3.13 mill/uL (4.70-6.10); White Blood Cell (WBC) Count 3.5 thou/uL (4.8-10.8)
[2018-07-11 05:33] LABS: Anion Gap 18 mmol/L (10-20); BUN (Urea Nitrogen) 104 mg/dL (8.4-25.7); Calc. Creatinine Clearance 26 mL/min (70-130); Carbon Dioxide 16 mmol/L (23-31); Chloride 99 mmol/L (98-107); Estimated GFR-MDRD 20; Glucose 121 mg/dL (83-110); Potassium 4.9 mmol/L (3.5-5.1); Sodium 128 mmol/L (136-145)
--- NOTE | 2018-07-11 08:59 | PRG ---
DATE OF SERVICE: 07/11/2018 SUBJECTIVE: Kai Ruiz is a 78-year-old gentleman. This morning, he is better, still short of breath. OBJECTIVE: VITAL SIGNS: Sats 100% room air, respiratory rate 18, pulse 86, and blood pressure 111/48. CHEST: Decreased breath sounds. Minimal rhonchi. CARDIAC: Normal S1 and S2. No gallops. ABDOMEN: No masses. LABORATORY DATA: Creatinine 3.6, BUN is 104. White count 3000, hemoglobin and hematocrit of 8 and 26. IMPRESSION: Respiratory failure, dyspnea, renal failure, congestive heart failure. X-ray shows bilateral pleural effusion, cardiomegaly. PLAN: Continue supportive care. Input from Nephrology and Cardiology. Job ID: [id number]
[2018-07-11] MEDS: Docusate 100 MG CAP PO SCH ×2 (09:41→20:30)
[2018-07-11] MEDS: Aspirin 325 mg Enteric Coated Tablet PO SCH (09:41)
[2018-07-11] MEDS: Multivitamin W/ Minerals 1 TAB PO SCH (09:41)
[2018-07-11] MEDS: Bicalutamide 50 MG TAB PO SCH (09:41)
[2018-07-11] MEDS: Folic Acid 1 MG TAB PO SCH (09:41)
[2018-07-11] MEDS: Sodium Bicarbonate Tab 325 MG TAB PO SCH ×3 (09:41→20:30)
[2018-07-11] MEDS: Polyethylene Glycol 3350 17 GM Packet PO SCH (09:41)
[2018-07-11] MEDS: Carvedilol 3.125 MG TAB PO SCH ×2 (09:41→20:30)
[2018-07-11] MEDS: Allopurinol 300 MG TAB PO SCH (09:41)
[2018-07-11] MEDS: Furosemide 40 MG/4 ML VIAL SLOW IVP SCH (09:42)
--- NOTE | 2018-07-11 10:14 | PRG ---
DATE OF SERVICE: 07/09/2018 SUBJECTIVE: Mr. Ruiz is a 78-year-old black male with known history of chronic renal failure. He is followed by the Renal Service for a superimposed acute kidney injury. Please note, this patient has also underlying prostatic cancer with mets to the bone. He became acutely short of breath last night. He was on IV fluid normal saline at 100 mL/h. This was given due to the fact he had worsening renal dysfunction, and we felt he may have some prerenal azotemia. However, it looks like he is not tolerating the IV fluid. Chest x-ray showed also an interval development of a moderate sized right pleural effusion. This morning, he is feeling a little better. IV fluid is off. OBJECTIVE: VITAL SIGNS: Blood pressure is 99/42, heart rate 88, respiratory rate 18. GENERAL: Awake, alert, sitting comfortable, not in overt distress. SKIN: Adequate turgor. HEENT: He has pale conjunctivae. Anicteric sclerae. NECK: No neck mass. No carotid bruits. No JVD. CHEST: No deformities. LUNGS: Decreased breath sounds. HEART: Normal sinus rhythm. No murmurs, no gallops, no rubs. ABDOMEN: Globular, soft, nontender. No masses. EXTREMITIES: No edema. MEDICATIONS: Medications of July 09, 2018 was reviewed. LABORATORY DATA: Laboratories of July 09, 2018; sodium ?, potassium 4.9, chloride 102, carbon dioxide 18, BUN 95, creatinine 3.81, glucose 124, and calcium 9.3. In July 2018, BUN 94, creatinine 4.1. On July 07, 2018, BUN is 94, creatinine is 4.36. ASSESSMENT AND PLAN: 1. Shortness of breath-the patient developed acute pulmonary edema. This could be related from the IV hydration. This has been placed on hold. The patient has received two doses of Lasix, and clinically, he is much improved. Continue to hold off IV fluid for the moment. 2. Acute kidney injury on top of his chronic renal failure. Creatinine this morning was noted at 3.81, which is actually much improved during the last few days. My plan is simply to observe it. P.r.n. Lasix as needed. My bias is to at least place him on a diuretic regimen. Should the renal function further worsen, we will discuss dialysis options with this patient. 3. Metastatic prostate cancer. Supportive care. Currently on Casodex. 4. Agree with current management. Job ID: [id number] MTDD
--- NOTE | 2018-07-11 10:41 | PRG ---
DATE OF SERVICE: 07/11/2018 SUBJECTIVE: Mr. Ruiz is a 78-year-old black male, followed up by the Renal Service for his acute kidney injury on top of his chronic renal failure. In the last few days, he did develop CHF. For that reason, he was diuresed. We have adjusted his Lasix due to the worsening renal dysfunction. I did discuss the possibility of dialysis with this patient and if it is needed, he will consider it. No other complaints. He feels better. He denies any chest pain or shortness of breath. OBJECTIVE: VITAL SIGNS: Blood pressure is 111/48, heart rate 83, respiratory rate 18, and pulse ox 98%. GENERAL: He is noted to be awake, alert, and comfortable, not in distress. SKIN: Adequate turgor. HEENT: He has pinkish conjunctivae. Anicteric sclerae. No neck mass. No carotid bruits. No JVD. CHEST: No deformities. LUNGS: Decreased breath sounds. HEART: Normal sinus rhythm. No murmur. No gallops. No rubs. ABDOMEN: Globular, soft, nontender. No masses. EXTREMITIES: No edema. No deformities. MEDICATIONS: Medications of July 11, 2018, reviewed. LABORATORIES DATA: Of July 11, 2018; white count 3.5, hemoglobin 8.4, sodium 128, potassium 4.9, chloride 99, carbon dioxide 16, BUN 104, creatinine 3.65, glucose 121, and calcium 9.0. Creatinine of July 09, 2018 was 3.81. In July 2018, creatinine was 4.1. In July 07, 2018, creatinine 4.36. ASSESSMENT AND PLAN: 1. Acute kidney injury on top of chronic renal failure, stabilizing renal function. Lasix has been adjusted downward to 40 mg IV daily. There is no acute indication for any dialytic intervention at the present time. Continue current management. Continue low-dose diuretics. If the patient remains hemodynamically stable, I will consider restarting him on albumin infusion tomorrow. 2. Metastatic prostate cancer. Continue supportive care currently in case. 3. Congestive heart failure, clinically much improved. Job ID: [id number]
--- NOTE | 2018-07-11 13:17 | PRG ---
DATE OF SERVICE: 07/11/2018 SUBJECTIVE: Mr. Ruiz feels weak and has lack of energy. He chand not have any chest pain. OBJECTIVE: VITAL SIGNS: His blood pressure is 98/48; pulse is 80, it is regular, it is sinus on the monitor. LUNGS: Clear. CARDIAC: Normal S1, normal S2. ABDOMEN: Soft, nontender. EXTREMITIES: Only mild edema. PERTINENT LABORATORIES: Creatinine is 3.65 with an estimated GFR of 20. Sodium is 128. Hemoglobin is 8.4. ASSESSMENT: 1. Congestive heart failure, systolic and diastolic mixed, mostly diastolic. Volume status appears improved. 2. Near end-stage renal disease with estimated GFR of 20. 3. Previous transcutaneous aortic valve replacement with normal function. PLAN: 1. We will check iron levels tomorrow to see if he needs any intravenous iron. 2. I do not think he can tolerate any further blood transfusions. 3. Reduce aspirin dose. 4. If reaches end-stage renal disease, consideration for dialysis could be given. The patient otherwise had been doing fairly well up until recently. Job ID: [id number]
--- NOTE | 2018-07-11 13:51 | PRG ---
DATE OF SERVICE: 07/11/2018 SUBJECTIVE: The patient remains in IMICU. He today is feeling about the same, not feeling worse, still feeling weak, has had episodes of shortness of breath. OBJECTIVE: VITAL SIGNS: He has remained afebrile. Temperature 97.5, respirations at 19, saturating 96% on room air, and pulse 85. Exam is unchanged. LUNGS: Being clear to auscultation. HEART: Has a 1/6 systolic ejection murmur. ABDOMEN: Soft and nontender. No masses. LABORATORY DATA: Labs show a white count has reduced to 3.5, his red blood cell count essentially stable at 3.13, hemoglobin is essentially stable at 8.4, platelet count has dropped from 90 to 77. His chemistries show a sodium dropped to 128, potassium is 4.9, chloride 99, CO2 is 16, BUN is elevated at 105, creatinine is 3.65, and his PSA came back at 77.9. ASSESSMENT: Acute on chronic renal failure with metastatic prostate cancer and recent congestive heart failure. PLAN: We will continue current plan. Dr. Valles is considering diuresis at this time. Possibility for blood and/or albumin or other blood products, the success of that definitely hinges on whether he can start dialysis. The last attempt to give him blood products resulted in a pulmonary effusion from the overwhelming amount of fluid overlying his heart. Job ID: [id number]
[2018-07-11] MEDS: Tamsulosin HCl 0.4 MG CAP PO SCH (20:30)
[2018-07-12 06:53] LABS: Iron 41 ug/dL (65-175); Iron Binding Capacity, Total 180 mcg/dL (261-462)
--- NOTE | 2018-07-12 09:02 | PRG ---
DATE OF SERVICE: 07/12/2018 SUBJECTIVE: The patient is feeling much better and noted events of the weekend. The patient denies chest pain. Denies shortness of breath. He complains of being itchy on his back. Denies back pain or joint pains. Overall, he states that he is feeling some better, but still feeling weak. OBJECTIVE: VITAL SIGNS: Temperature 98.2, pulse of 89, respirations 18, blood pressure 114/58, pulse ox is 96% on room air. GENERAL: He is awake and alert, in no acute distress. HEENT: Mucosa is moist. NECK: Supple. HEART: Regular rate and rhythm. LUNGS: Distant. No wheeze, rales, or rhonchi. ABDOMEN: Obese. EXTREMITIES: No edema. LABORATORY DATA: Pending. Yesterday hemoglobin and hematocrit were 8.4 and 26.9. Iron level low at 41, TIBC 180. Accu-Cheks 132, 142, 158. Chemistry is pending. Yesterday, BUN and creatinine were 104 and 3.65 with a GFR of 20, which is improved from 16, 5 days ago. ASSESSMENT AND PLAN: This is a 78-year-old gentleman with a history of diastolic heart failure with acute on chronic kidney failure and metastatic prostate carcinoma, now status post congestive heart failure exacerbation. 1. Acute on chronic kidney failure, appears to be slightly improving, will be difficult due to balancing his fluid status along with his heart failure. Dr. Valles managing, considering restarting albumin infusion. 2. Diastolic heart failure. We will monitor closely. Diurese as needed. 3. Metastatic prostate carcinoma. We will continue chemo therapy per Dr. Soto. Seems to be tolerating Casodex 4. Type 2 diabetes, appears to be stable at this time. 5. Disposition. Continue to discuss with patient about options. He is uncertain if he wants to proceed with dialysis. He still is not interested with hospice at this time as he is mostly concerned about his . Job ID: [id number] [facility]
--- NOTE | 2018-07-12 09:08 | PRG ---
DATE OF SERVICE: SUBJECTIVE: Kai Ruiz this morning denies difficulty breathing. OBJECTIVE: VITAL SIGNS: Sats are 98% on room air, respiratory rate 18, temperature 98, and pulse 89. CHEST: Decreased breath sounds. No wheezing. CARDIAC: Normal S1 and S2. No gallops. ABDOMEN: Soft. IMPRESSION: Congestive heart failure, renal failure, respiratory failure, and metastatic cancer. PLAN: Pulmonary cameron, continue supportive care. Disposition as per Nephrology. Job ID: [id number]
--- NOTE | 2018-07-12 09:30 | PRG ---
DATE OF SERVICE: 07/12/2018 SUBJECTIVE: Mr. Ruiz sitting up in chair, looks better today. No chest pain or pressure. He is breathing well. OBJECTIVE: VITAL SIGNS: Blood pressure 129/59 and pulse 80, sinus on the monitor. LUNGS: Clear. CARDIAC: Normal S1. Normal S2. ABDOMEN: Soft and nontender. EXTREMITIES: Minimal edema. LABORATORY DATA: Hemoglobin is 8.4. Ferritin level very high at 2719. ASSESSMENT: 1. Anemia, stable. 2. Congestive heart failure, systolic and diastolic mixed, mostly diastolic, stable. 3. Near end-stage renal disease, creatinine 3.6 yesterday. Today is pending. 4. Metastatic prostate cancer, stable. PLAN: Await creatinine level to see whether the patient is going to need dialysis. The patient really is on the edge of needing dialysis. He was actually doing quite well up until this hospitalization was preaching even a month ago. Job ID: [id number]
[2018-07-12] MEDS: Polyethylene Glycol 3350 17 GM Packet PO SCH (09:50)
[2018-07-12] MEDS: Bicalutamide 50 MG TAB PO SCH (09:50)
[2018-07-12] MEDS: Allopurinol 300 MG TAB PO SCH (09:50)
[2018-07-12] MEDS: Multivitamin W/ Minerals 1 TAB PO SCH (09:50)
[2018-07-12] MEDS: Sodium Bicarbonate Tab 325 MG TAB PO SCH ×3 (09:51→21:30)
[2018-07-12] MEDS: Furosemide 40 MG TAB PO SCH (09:51)
[2018-07-12] MEDS: Aspirin 81 mg Enteric Coated Tablet PO SCH (09:51)
[2018-07-12] MEDS: Carvedilol 3.125 MG TAB PO SCH ×2 (09:51→21:30)
[2018-07-12] MEDS: Folic Acid 1 MG TAB PO SCH (09:51)
[2018-07-12] MEDS: Docusate 100 MG CAP PO SCH ×2 (09:51→21:30)
--- NOTE | 2018-07-12 09:57 | PRG ---
DATE OF SERVICE: 07/12/2018 SUBJECTIVE: Mr. Ruiz is a 78-year-old black male with known history of chronic renal failure. We did see the patient for his acute kidney injury. He has had worsening renal dysfunction, and he was given volume repletion; however, he develops a transient episode of CHF. He was restarted on Lasix. Currently, we have decreased the Lasix to p.o. 40 mg tablet once a day. He is asymptomatic at the present time. He denies any chest pain or any worsening shortness of breath. OBJECTIVE: VITAL SIGNS: Blood pressure is 126/52, heart rate 89, respiratory rate 18, pulse ox 99% on room air. GENERAL: Awake, alert, comfortable. SKIN: Adequate turgor. HEENT: He has had a slightly pale conjunctivae. Anicteric sclerae. No neck mass. No carotid bruits. No JVD. CHEST: No deformities. LUNGS: Clear breath sounds. No wheezing. No crackles. HEART: Normal sinus rhythm. No murmur. No gallops or rubs. ABDOMEN: Globular, soft, nontender. No masses. EXTREMITIES: No edema. No deformities. MEDICATIONS: Medications of July 12, 2018, reviewed. LABORATORY DATA: Laboratory of July 11, 2018, white count 3.5, hemoglobin 8.4. On July 12, 2018, iron is 41, TIBC is 180. On July 11, 2018, BUN 104, creatinine 3.65. PSA 77. ASSESSMENT AND PLAN: 1. Acute kidney injury/chronic renal failure, superimposed hemodynamically mediated renal dysfunction. Creatinine is stabilizing. He is currently on decreased dose of Lasix at 40 mg tablet once a day. I do not find any indication for any acute dialytic intervention at the present time. 2. Anemia. Consider iron supplementation. 3. Congestive heart failure, clinically much improved. Currently, on low-dose Lasix at 40 mg tablet once a day. For the moment, agree with current management. Continue supportive care. No indication for any dialysis. Job ID: [id number]
[2018-07-12 10:52] LABS: Hemoglobin 9.3 g/dL (14.0-18.0); Mean Corpuscular HGB CONC 31.1 g/dL (32.0-36.0); Mean Corpuscular Hemoglobin 26.5 pg (27.0-31.0); Mean Corpuscular Volume 85.3 fL (78.0-98.0); Mean Platelet Volume 5.6 fL (7.4-10.4); Platelet Count 82 thou/uL (130-400); RBC Distribution Width 24.7 % (11.5-14.5); Red Blood Cell (RBC) Count 3.51 mill/uL (4.70-6.10); White Blood Cell (WBC) Count 4.5 thou/uL (4.8-10.8)
[2018-07-12 10:58] LABS: Anisocytosis MARKED = >30 cells (100X) (0-5/hpf); Band 9 % (5-11); Burr Cells SLIGHT = 2-5 cells (100X) (0-1/hpf); Eosinophils 2 % (0-10); Hypochromia SLIGHT = 6-15 cells (100X) (0-5/hpf); Lymphocytes 18 % (21-51); MDiff Complete? YES; Monocytes 11 % (0-10); Neutrophil 59 % (42-75); Nucleated RBC 4 % (0); Polychromasia MODERATE = 3-4 cells (100X) (0-2/hpf)
[2018-07-12 12:04] LABS: Anion Gap 22 mmol/L (10-20); BUN (Urea Nitrogen) 106 mg/dL (8.4-25.7); Calc. Creatinine Clearance 26 mL/min (70-130); Calcium 9.2 mg/dL (7.8-10.44); Carbon Dioxide 15 mmol/L (23-31); Chloride 99 mmol/L (98-107); Estimated GFR-MDRD 20; Glucose 148 mg/dL (83-110); Potassium 5.5 mmol/L (3.5-5.1); Sodium 130 mmol/L (136-145)
[2018-07-12] MEDS: Ferrous Sulfate 325 MG TAB PO SCH (17:05)
[2018-07-12] MEDS: Tamsulosin HCl 0.4 MG CAP PO SCH (21:30)
[2018-07-12] MEDS: diphenhydrAMINE 50 MG/ML VIAL IVP PRN (21:31)
[2018-07-12] MEDS: Acetaminophen 500 MG TAB PO PRN (21:31)
[2018-07-13 04:52] LABS: Anion Gap 20 mmol/L (10-20); BUN (Urea Nitrogen) 107 mg/dL (8.4-25.7); Calc. Creatinine Clearance 26 mL/min (70-130); Calcium 8.9 mg/dL (7.8-10.44); Carbon Dioxide 14 mmol/L (23-31); Chloride 99 mmol/L (98-107); Estimated GFR-MDRD 20; Glucose 120 mg/dL (83-110); Potassium 4.9 mmol/L (3.5-5.1); Sodium 128 mmol/L (136-145)
[2018-07-13 05:00] LABS: Anisocytosis SLIGHT = 6-15 cells (100X) (0-5/hpf); Hemoglobin 8.1 g/dL (14.0-18.0); Hypochromia SLIGHT = 6-15 cells (100X) (0-5/hpf); Lymphocytes 22 % (21-51); MDiff Complete? YES; Mean Corpuscular HGB CONC 30.7 g/dL (32.0-36.0); Mean Corpuscular Hemoglobin 26.5 pg (27.0-31.0); Mean Corpuscular Volume 86.4 fL (78.0-98.0); Mean Platelet Volume 4.8 fL (7.4-10.4); Monocytes 6 % (0-10); Neutrophil 72 % (42-75); Platelet Count 88 thou/uL (130-400); Platelet Morphology Comment Appears Decreased; Polychromasia SLIGHT = 2-3 cells (100X) (0-2/hpf); RBC Distribution Width 24.7 % (11.5-14.5); Red Blood Cell (RBC) Count 3.06 mill/uL (4.70-6.10); White Blood Cell (WBC) Count 3.7 thou/uL (4.8-10.8)
[2018-07-13] MEDS ORDERED: Magnesium Citrate 300 ML BOT PO SCH (08:15)
--- NOTE | 2018-07-13 08:45 | RAD ---
CHEST ONE VIEW: History: CHF. Comparison: 07-10-18 FINDINGS: Heart size continues to be enlarged. No pneumothorax. Pulmonary intravenous congestion is improving. Chronic thickening of the right lateral costophrenic sulcus similar. Subdiaphragmatic calcification i s similar. IMPRESSION: Unchanged examination of the chest. POS: CET
--- NOTE | 2018-07-13 08:46 | PRG ---
DATE OF SERVICE: 07/13/2018 SUBJECTIVE: The patient complains of being itchy. He denies chest pain. Denies shortness of breath. He states that his pain is better controlled. He continues to feel weak and frustrated. He is walking with assistance. He still has not had a bowel movement. Seems more agitated today. OBJECTIVE: VITAL SIGNS: Temperature 97.7, pulse of 82, respirations 18 to 20, pulse ox is 98% to 100% on room air, and blood pressure this morning 102/51. GENERAL: He is awake and alert, in no acute distress. Speech is clear. NECK: Supple. HEART: Regular rate and rhythm. LUNGS: Decreased breath sounds. No wheeze, rales, or rhonchi anteriorly. ABDOMEN: Obese. EXTREMITIES: With no edema. LABORATORY DATA: Sodium 128, potassium 4.9, chloride 99, CO2 of 14, BUN and creatinine 107 and 3.56 with a GFR of 20, serum glucose of 120. White blood cell count 3.7, hemoglobin and hematocrit 8.1 and 26.4, and platelets of 88,000. IMAGING DATA: Chest x-ray is pending. ASSESSMENT AND PLAN: This is a 78-year-old gentleman with metastatic prostate carcinoma, diastolic heart failure, and acute on chronic kidney failure. 1. Acute on chronic kidney failure, remained poor. Dr. Valles is balancing his fluids, not requiring dialysis at this time per Dr. Valles. 2. Diastolic heart failure. Monitoring closely. Diurese as needed. I will try to prevent hypotension. 3. Metastatic prostate carcinoma. Continuing chemotherapy as per Dr. Soto, considering to start Lupron in the next couple of weeks. 4. Type 2 diabetes. Continues to be stable. 5. Anemia due to renal failure and chronic disease. Checking guiac stool due to recent prostate biopsy. 6. Disposition. I discussed with the patient and son about his options looking into a rehab placement at this time. Much of this will depend on whether he progresses to need dialysis or not. Again, discussed hospice and resuscitation status. The patient continues to desire full code at this time. Job ID: [id number] [facility]
[2018-07-13] MEDS: Bicalutamide 50 MG TAB PO SCH (08:57)
[2018-07-13] MEDS: Ferrous Sulfate 325 MG TAB PO SCH ×2 (08:57→16:47)
[2018-07-13] MEDS: Multivitamin W/ Minerals 1 TAB PO SCH (08:58)
[2018-07-13] MEDS: Docusate 100 MG CAP PO SCH ×2 (08:58→21:36)
[2018-07-13] MEDS: Folic Acid 1 MG TAB PO SCH (08:58)
[2018-07-13] MEDS: Allopurinol 300 MG TAB PO SCH (08:58)
[2018-07-13] MEDS: Carvedilol 3.125 MG TAB PO SCH (08:59)
[2018-07-13] MEDS: Aspirin 81 mg Enteric Coated Tablet PO SCH (08:59)
[2018-07-13] MEDS: Polyethylene Glycol 3350 17 GM Packet PO SCH (09:00)
[2018-07-13] MEDS: Sodium Bicarbonate Tab 325 MG TAB PO SCH ×3 (09:00→21:36)
--- NOTE | 2018-07-13 09:32 | PRG ---
DATE OF SERVICE: 07/13/2018 SUBJECTIVE: Kai Ruiz is a 78-year-old gentleman, said he is somewhat better. OBJECTIVE: VITAL SIGNS: Sats are 100% on room air, respiratory rate 20, temperature 97, pulse 87, blood pressure 102/51. CHEST: Decreased breath sounds without any wheezing. CARDIAC: Normal S1, S2. No gallops. ABDOMEN: Soft. LABORATORY DATA: Creatinine 3.56, BUN 107, platelet count is 88. H and H are unremarkable. X-ray shows cardiomegaly, pleural thickening, small pleural effusion. IMPRESSION: 1. Morbid obesity, respiratory failure. 2. Renal failure. 3. Metastatic cancer. PLAN: Pulmonary cameron, nothing additional to offer. Please call as needed. Job ID: [id number]
--- NOTE | 2018-07-13 10:04 | PRG ---
DATE OF SERVICE: 07/13/2018 SERVICE: Renal Medicine. SUBJECTIVE: Mr. Ruiz is a 78-year-old black male with known history of metastatic prostate cancer and was seen by the Renal Service for acute kidney injury. Initially, he was given volume repletion, but eventually developed CHF. IV fluid has been discontinued. Lasix was initially given. He has no other new complaints today. He is awaiting possible placement to a shelter facility. He continues to be on a diuretic at 40 mg tablet once a day of Lasix. No other complaints. OBJECTIVE: VITAL SIGNS: Blood pressure 102/51, heart rate 86, respiratory rate 18, temperature 97.7, and pulse ox 98%. GENERAL: Awake, alert, comfortable, not in distress. SKIN: Adequate turgor. HEENT: He has slightly pale conjunctivae. Anicteric sclerae. NECK: No neck mass. No carotid bruits. No JVD. CHEST: No deformities. LUNGS: Clear breath sounds. HEART: Normal sinus rhythm. No murmur. No gallops. No rubs. ABDOMEN: Globular, soft, nontender. No masses. EXTREMITIES: No edema. No deformities. MEDICATIONS: Medications of July 13, 2018, reviewed. LABORATORY DATA: Of July 13, 2018, white count 3.7, hemoglobin 8.1. Sodium 128, potassium 4.9, chloride 99, carbon dioxide 14, BUN 107, creatinine 3.56, glucose 120, and calcium 8.9. ASSESSMENT AND PLAN: 1. Acute kidney injury/chronic renal failure, stabilizing renal function. Creatinine is noted at 3.56. I do not find any indication for any dialytic intervention at present time with this patient. 2. Congestive heart failure, clinically much improved. Currently, on low-dose diuretics. 3. Borderline anemia. Continue to observe p.r.n. blood transfusion. 4. Metastatic prostate cancer, on Casodex. Overall agree with current management. Job ID: [id number]
[2018-07-13] MEDS: Furosemide 40 MG TAB PO SCH (10:27)
[2018-07-14] MEDS: diphenhydrAMINE 50 MG/ML VIAL IVP PRN (05:19)
[2018-07-14 05:36] LABS: Anion Gap 22 mmol/L (10-20); BUN (Urea Nitrogen) 112 mg/dL (8.4-25.7); Calc. Creatinine Clearance 27 mL/min (70-130); Calcium 9.1 mg/dL (7.8-10.44); Carbon Dioxide 16 mmol/L (23-31); Chloride 98 mmol/L (98-107); Estimated GFR-MDRD 20; Glucose 113 mg/dL (83-110); Potassium 5.6 mmol/L (3.5-5.1); Sodium 130 mmol/L (136-145)
[2018-07-14 06:21] LABS: Band 5 % (5-11); Eosinophils 3 % (0-10); Hemoglobin 8.5 g/dL (14.0-18.0); Lymphocytes 14 % (21-51); MDiff Complete? YES; Mean Corpuscular Volume 86.7 fL (78.0-98.0); Mean Platelet Volume 11.5 fL (7.4-10.4); Monocytes 13 % (0-10); Neutrophil 65 % (42-75); Nucleated RBC 1 % (0); Platelet Morphology Comment Appears Decreased; RBC Distribution Width 24.5 % (11.5-14.5); White Blood Cell (WBC) Count 4.1 thou/uL (4.8-10.8)
[2018-07-14 07:08] LABS: Red Blood Cell (RBC) Count 3.21 mill/uL (4.70-6.10)
[2018-07-14 07:09] LABS: Mean Corpuscular HGB CONC 30.4 g/dL (32.0-36.0); Mean Corpuscular Hemoglobin 26.5 pg (27.0-31.0)
[2018-07-14 07:10] LABS: Platelet Count 81 thou/uL (130-400)
--- NOTE | 2018-07-14 08:38 | PRG ---
DATE OF SERVICE: 07/14/2018 SUBJECTIVE: The patient had an uneventful day. He continues to complain of being itchy all over his skin. Denies chest pain. Denies shortness of breath. Continues to have a poor appetite. He states that his pain is relatively well controlled with cutaneous fentanyl patch. He states he feels bad when he is walking. Feels weak when he is sitting up. He did have a good bowel movement yesterday. He seems more at rest today. He agrees with going to rehab, if able. Continues to want to proceed with treatments for his prostate cancer, motivated to get better and stronger. OBJECTIVE: VITAL SIGNS: Temperature 97.8, pulse of 91, respirations 18, blood pressure 98/50, pulse ox is 93% on room air. GENERAL: He is awake and alert, resting comfortably, but appears to be in pain with movement in bed. HEENT: Mucosa is dry. NECK: Supple. HEART: Regular rate and rhythm. LUNGS: Clear anteriorly. ABDOMEN: Soft. EXTREMITIES: With no edema. LABORATORY DATA: Sodium 130, potassium 5.6, chloride of 98, CO2 of 16, BUN and creatinine of 112 and 3.6 with a GFR of 20, serum glucose of 113. Accu-Cheks of 131, 181, 148, 151. White blood cell count 4.1 thousand, hemoglobin and hematocrit 8.5 and 28.0, platelets of 81. Stool guiac positive ASSESSMENT AND PLAN: This is a 78-year-old gentleman with metastatic prostate carcinoma, diastolic heart failure, acute on chronic kidney failure. 1. Acute on chronic kidney failure. No improvement. GFR remains around 20. BUN is rising, may be showing some signs of uremia. Appreciate, Dr. Valles balancing his fluids and is not thinking dialysis is required at this time. 2. Diastolic heart failure. Seems to be tolerating the low-dose diuresis. 3. Metastatic prostate carcinoma. Continue Casodex per Dr. Soto. Planning on starting Lupron in the next few weeks as well. The patient wants to continue therapy. 4. Type 2 diabetes is stable. 5. Anemia of chronic disease and renal failure. Guiac positive. Will stop aspirin. Continue iron supplement and epogen therapy. He is not a candidate for endoscopy at this time. 6. Weakness is multifactorial. Continue therapy. Uremia is likely contributing to his mental state as well as the fentanyl patch for his pain control. Continuing to discuss with patient and son about end of life issues and consideration of hospice if he does not show signs of improvement 7. Disposition: Awaiting rehab evaluation. Job ID: [id number] [facility]
[2018-07-14] MEDS: Allopurinol 300 MG TAB PO SCH (09:48)
[2018-07-14] MEDS: Sodium Bicarbonate Tab 325 MG TAB PO SCH ×3 (09:48→21:41)
[2018-07-14] MEDS: Multivitamin W/ Minerals 1 TAB PO SCH (09:48)
[2018-07-14] MEDS: Folic Acid 1 MG TAB PO SCH (09:49)
[2018-07-14] MEDS: Furosemide 40 MG TAB PO SCH (09:49)
[2018-07-14] MEDS: Aspirin 81 mg Enteric Coated Tablet PO SCH (09:49)
[2018-07-14] MEDS: Ferrous Sulfate 325 MG TAB PO SCH ×2 (09:49→16:37)
[2018-07-14] MEDS: Bicalutamide 50 MG TAB PO SCH (09:50)
[2018-07-14] MEDS: Docusate 100 MG CAP PO SCH ×2 (09:51→21:41)
[2018-07-14] MEDS: Polyethylene Glycol 3350 17 GM Packet PO SCH (09:51)
--- NOTE | 2018-07-14 20:19 | PRG ---
DATE OF SERVICE: 07/14/2018 SUBJECTIVE: A 78-year-old male with type 2 diabetes, CKD, prior history of renal cell carcinoma, status post left nephrectomy, who was admitted due to worsening shortness of breath and hypoxia. The patient was felt to have CHF and was treated with diuretics in the ER. Following which, blood pressure was noted to drop down to 79/47, and subsequently noted to have worsening renal function. He still complains of not feeling well. Denied nausea and vomiting. Shortness of breath has improved, however. OBJECTIVE: VITAL SIGNS: Blood pressure 103/52, respiratory rate 18, SpO2 98% on room air, temperature 97.8, afebrile. GENERAL: Chronically ill-looking elderly male, in no obvious distress. HEENT: Anicteric. Normocephalic, atraumatic. Oral mucosa is moist. CARDIOVASCULAR: Regular rhythm and rate with normal heart sounds. Systolic murmur was appreciated. RESPIRATORY: Fair air entry bilaterally with some transmitted sounds. Work of breathing is not increased. ABDOMEN: Full, soft, nontender, nondistended with normal bowel sounds. EXTREMITIES: Mild bilateral leg edema with chronic venous stasis changes noted. NEUROLOGIC: Conscious and alert, oriented x3 with appropriate mental status. LABORATORY DATA: BMP showed sodium 130, potassium 5.6, chloride 98, CO2 of 16, anion gap 22, BUN 112, creatinine 3.60, estimated GFR is 20. CBC showed WBC count of 4.1, hemoglobin 8.5, platelet of 81. ASSESSMENT: 1. Acute kidney injury superimposed on chronic kidney disease stage 4: The etiology is very unclear, but it seems to be hemodynamically mediated as the patient had acute drop in blood pressure in the emergency room. Acute tubular necrosis is a concern. 2. Worsening azotemia: BUN today is 112, up from admission level of 72. Diuretic therapy can worsen renal function contributory. Of note, the patient is status post left nephrectomy for renal cell carcinoma. 3. Hyperkalemia with potassium of 5.6. 4. Acute on chronic congestive heart failure: Improved with diuretic therapy. PLAN: We will treat hyperkalemia with Kayexalate. We will also repeat his renal function tomorrow. Worsening azotemia may be related to diet, high-protein diet as well as worsening renal function and diuretic therapy. Job ID: [id number]
[2018-07-14] MEDS: Acetaminophen 500 MG TAB PO PRN (21:41)
[2018-07-15] MEDS: diphenhydrAMINE 50 MG/ML VIAL IVP PRN (00:04)
[2018-07-15 06:45] LABS: Hemoglobin 8.3 g/dL (14.0-18.0)
[2018-07-15 07:02] LABS: Anion Gap 20 mmol/L (10-20); BUN (Urea Nitrogen) 109 mg/dL (8.4-25.7); Calc. Creatinine Clearance 29 mL/min (70-130); Calcium 9.2 mg/dL (7.8-10.44); Carbon Dioxide 18 mmol/L (23-31); Chloride 96 mmol/L (98-107); Estimated GFR-MDRD 22; Glucose 115 mg/dL (83-110); Potassium 4.9 mmol/L (3.5-5.1); Sodium 129 mmol/L (136-145)
[2018-07-15 08:26] VITALS: TEMP 97.4
--- NOTE | 2018-07-15 09:05 | PRG ---
DATE OF SERVICE: 07/15/2018 SUBJECTIVE: A 78-year-old male, who has been followed up by Nephrology service for acute kidney injury on CKD stage 4. The patient denied any new problems, but continued to complain of back pain and generalized weakness. Shortness of breath has improved. OBJECTIVE: VITAL SIGNS: BP , temperature 97.5, pulse 89, respiratory rate 17, SpO2 94 on room air. GENERAL: Clinically ill-looking elderly male, in no obvious distress. Fatigued. HEENT: Normocephalic, atraumatic. Oral mucosa is moist. CARDIOVASCULAR: Regular rhythm and rate. Soft systolic murmur appreciated. RESPIRATORY: Fair air entry bilaterally with no obvious crackles. ABDOMEN: Full, soft, nontender, nondistended with normal bowel sounds. EXTREMITIES: No obvious leg edema appreciated. Hyperpigmentation of distal legs suggestive of chronic venous stasis changes noted. NEUROLOGIC: Conscious and alert, oriented x3 with appropriate mental status. DIAGNOSTIC DATA: BMP shows sodium 129, potassium 4.9, chloride 96, CO2 18, BUN 109, creatinine 3.34, glucose 115, and calcium 9.2. CBC shows hemoglobin of 8.3 and hematocrit of 28.2. ASSESSMENT: 1. Acute kidney injury on chronic kidney disease stage 4. Etiology most likely is hemodynamics. The patient was started on aggressive diuretics for treatment of congestive heart failure. Acute tubular necrosis, however, cannot be ruled out given multiple risk factors in this patient. However, the patient continues to have significant hyponatremia as well as elevated BUN suggestive of intravascular contraction. Moreover, he does not appear to be grossly overloaded. No obvious leg edema could be appreciated. Echocardiogram showed mildly depressed systolic function with EF of 45 to 50 with features of diastolic dysfunction, moderate to severe tricuspid regurgitation were also noted. We will stop diuretics at this time and observe the patient since respiratory status has improved and he does not look clearly fluid overloaded. 2. Hyponatremia: Most likely due to appropriate ADH secretion, due to intravascular contraction, SIADH, however, is a concern. We will get urine osmolality. Given history of prior partial left nephrectomy for renal cell carcinoma as well as history of prostate cancer with metastasis. 3. Worsening azotemia. Azotemia has improved. BUN is down from 112 to 109. We will continue to monitor renal function and BUN with discontinuation of diuretics. 4. Hyperkalemia. Potassium is down to 4.6 following treatment with Kayexalate. 5. Acute on chronic congestive heart failure: The patient seems to be euvolemic, if not dry. We will hold diuretics and observe. 6. Gout: We will continue allopurinol. 7. Chronic back pain. On physical deconditioning. We would defer analgesic and physical rehabilitation to the primary attending. Job ID: [id number]
[2018-07-15 12:06] LABS: Osmolality, Urine 382 mOsm/kg (300-900)
[2018-07-15] MEDS: Polyethylene Glycol 3350 17 GM Packet PO SCH (12:32)
[2018-07-15] MEDS: Allopurinol 300 MG TAB PO SCH (12:33)
[2018-07-15] MEDS: Folic Acid 1 MG TAB PO SCH (12:33)
[2018-07-15] MEDS: Docusate 100 MG CAP PO SCH (12:33)
[2018-07-15] MEDS: Ferrous Sulfate 325 MG TAB PO SCH (12:33)
[2018-07-15] MEDS: Multivitamin W/ Minerals 1 TAB PO SCH (12:34)
[2018-07-15 12:43] VITALS: BP 101/53
[2018-07-15 12:48] LABS: Urea Nitrogen, Random Urine 599 mg/dl
[2018-07-15] MEDS: Bicalutamide 50 MG TAB PO SCH (13:29)
[2018-07-15] MEDS: Sodium Bicarbonate Tab 325 MG TAB PO SCH (13:30)
== END 2018-07-15 13:35 | disposition home health service (06) | DRG 291 ==
LOC: ERS 15:06 → 2NO 17:07 → OBSVTOIN 07-04 08:19 → IMCU/EMU 07-08 18:20 → 2NO 07-12 15:18
PROVIDERS: ADMIT Family Medicine; ATTEND Family Medicine
PROC: 30233N1 Transfusion of Nonautologous Red Blood Cells into Peripheral Vein, Percutaneous Approach (ICD-10-PCS; principal; 2018-07-06)
PROC: 5A09457 Assistance with Respiratory Ventilation, 24-96 Consecutive Hours, Continuous Positive Airway Pressure (ICD-10-PCS; 2018-07-08)
DX: I13.0 Hypertensive heart and chronic kidney disease with heart failure and stage 1 through stage 4 chronic kidney disease, or unspecified chronic kidney disease (principal); I50.33 Acute on chronic diastolic (congestive) heart failure; J96.91 Respiratory failure, unspecified with hypoxia; C79.51 Secondary malignant neoplasm of bone; E87.1 Hypo-osmolality and hyponatremia; N18.4 Chronic kidney disease, stage 4 (severe); N17.9 Acute kidney failure, unspecified; E87.2 Acidosis; G93.40 Encephalopathy, unspecified; E11.22 Type 2 diabetes mellitus with diabetic chronic kidney disease; I42.9 Cardiomyopathy, unspecified; C61 Malignant neoplasm of prostate; M06.9 Rheumatoid arthritis, unspecified; M10.9 Gout, unspecified; D63.8 Anemia in other chronic diseases classified elsewhere; E87.5 Hyperkalemia; G89.29 Other chronic pain; M54.9 Dorsalgia, unspecified; D63.1 Anemia in chronic kidney disease; E66.01 Morbid (severe) obesity due to excess calories; F32.9 Major depressive disorder, single episode, unspecified; Z68.32 Body mass index [BMI] 32.0-32.9, adult; K21.9 Gastro-esophageal reflux disease without esophagitis; J44.9 Chronic obstructive pulmonary disease, unspecified; K59.00 Constipation, unspecified; E11.21 Type 2 diabetes mellitus with diabetic nephropathy; E78.5 Hyperlipidemia, unspecified; I35.0 Nonrheumatic aortic (valve) stenosis; I34.0 Nonrheumatic mitral (valve) insufficiency; I25.10 Atherosclerotic heart disease of native coronary artery without angina pectoris; Z85.53 Personal history of malignant neoplasm of renal pelvis; Z90.5 Acquired absence of kidney; Z95.2 Presence of prosthetic heart valve; Z79.4 Long term (current) use of insulin; Z79.899 Other long term (current) drug therapy; Z79.82 Long term (current) use of aspirin; Z82.49 Family history of ischemic heart disease and other diseases of the circulatory system; Z87.891 Personal history of nicotine dependence; Z88.0 Allergy status to penicillin; Z88.2 Allergy status to sulfonamides
CPT/HCPCS: 36415; 36416; 36430; 71045; 76770; 80048; 80053; 82274; 82550; 82553; 82728; 82805; 83540; 83550; 83690; 83880; 83935; 84153; 84484; 84540; 85014; 85018; 85025; 86850; 86900; 86901; 93005; 93306; 93798; 94640; 94660; 96374; J1200; J1940; J7620; P9016; P9047

== ENCOUNTER 2018-07-22 02:09 | Inpatient (IN) | payer MEDICARE ==
[2018-07-22] MEDS ORDERED: Ondansetron ODT 4 MG TAB PO PRN ×2 (06:24→12:29)
[2018-07-22] MEDS ORDERED: Ondansetron PF 4 MG/2 ML Vial IVP PRN (06:24)
[2018-07-22 08:58] VITALS: BMI 34.4
[2018-07-22] MEDS ORDERED: Acetaminophen 500 MG TAB PO PRN (12:29)
[2018-07-22] MEDS ORDERED: Loratadine 10 MG TAB PO PRN (12:29)
[2018-07-22] MEDS ORDERED: Magnesium Citrate 300 ML BOT PO PRN (12:54)
[2018-07-22] MEDS ORDERED: fentaNYL 50 mcg/hour Patch TD SCH (13:00)
--- NOTE | 2018-07-22 13:41 | RAD ---
PA CHEST THREE VIEWS LEFT CHEST WALL: Indication: Chest wall pain. Comparison: 06-28-18 FINDINGS: There is prominent cardiomegaly and pulmonary vascular congestion again seen. There are small bilater al pleural effusions. There is diffuse osseous metastatic disease. There is an endovascular stent see n within the region of the ascending aorta. There are vascular calcifications involving the aorta. No definite displaced left sided rib fracture is evident. IMPRESSION: 1. Findings of CHF. 2. No displaced left sided rib fracture. 3. Diffuse osseous metastatic disease. POS: NANO
[2018-07-22] MEDS: Sodium Bicarbonate Tab 325 MG TAB PO SCH ×2 (14:25→20:09)
--- NOTE | 2018-07-22 14:46 | HP ---
CHIEF COMPLAINT: Abdominal pain, left rib pain, and weakness. 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 The patient complains of increased weakness, complains of pain in his left chest wall, and has had not had a bowel movement in 2 days. The patient states he has been feeling weak. He is not sure what he had been doing at the rehab unit. He states when they were turning him at one point, he developed sudden onset of left chest wall pain about 2 days ago. He states he did have a good bowel movement about 2 days ago after having a lot of diarrhea, after getting too much of the MiraLAX. His last bowel movement again was 2 days ago. Yesterday, he developed increased abdominal pain and distention. The physician or caregiver at the rehab unit sent him to [facility] in [place] for evaluation and they transferred him to [facility] for further evaluation and treatment of his multiple medical problems and increased pain. In the Emergency Department, his labs were reviewed from [facility]. CT was reviewed, which revealed dilated loops of large bowel consistent with an ileus, but no point of bowel obstruction. He is admitted, started on IV fluids. He states that he has had improvement in his pain. He is not able to eat, but continues to have left rib cage and chest wall pain. States that he has had a poor appetite as well. PAST MEDICAL HISTORY: Again as above, recent diagnosis of metastatic prostate cancer, remote history of renal cell carcinoma status post left nephrectomy in 2011, type 2 diabetes, hypertension, hyperlipidemia, [id number] aortic stenosis, rheumatoid arthritis status post aortic valve replacement; and history of congestive heart failure with diastolic dysfunction, cardiomyopathy, and stage 4 chronic kidney disease. PAST SURGICAL HISTORY: Recent prostate biopsy, left nephrectomy in 2011, appendectomy in 1986, I and D of left flank abscess in 2013, and aortic valve replacement 2012. ALLERGIES: TO PENICILLIN AND SULFA. MEDICATIONS: From rehab include; 1. Allopurinol 150 mg daily. 2. Furosemide 40 mg daily. 3. Iron sulfate 325 b.i.d. 4. MiraLAX 17 g daily p.r.n. 5. Sodium bicarb 650 mg t.i.d. 6. Colace 100 mg b.i.d. 7. Multivitamin daily. 8. Fentanyl 25 mcg every 72 hours. 9. Folic acid 1 mg daily. FAMILY HISTORY: Father . Mother with heart disease. Siblings with diabetes, hypertension, and heart disease. SOCIAL HISTORY: He is . 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 No smoking. No alcohol. 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 REVIEW OF SYSTEMS: As per the history of present illness. CONSTITUTIONAL: Increased weakness, difficulty moving. No recent fevers, chills, or recent illness. HEENT: No headache, visual or hearing changes. CARDIAC: History of CHF. Today with no chest pain. No shortness of breath. No palpitations. PULMONARY: Denies cough or hemoptysis. GI: No nausea. No vomiting. Decreased p.o. intake. Occasional episodes of constipation, some abdominal pain, but better today than the last 2 days. : History of hematuria. History of BPH. MUSCULOSKELETAL: Positive joint pains, right now worse in his left chest wall. History of rheumatoid arthritis. He had history of gout and history of metastatic bone pain. PSYCHIATRIC: History of depression. PHYSICAL EXAMINATION: VITAL SIGNS: Temperature 97.4, pulse of 97, respirations 18, blood pressure 143/64, and pulse ox is 95% on room air. GENERAL: He is awake and alert. He is uncomfortable, but in no acute distress. Mucosa is moist. NECK: Supple. HEART: Regular rate and rhythm with a 3/6 systolic ejection murmur. LUNGS: Clear. ABDOMEN: Obese. Tympanitic bowel sounds. Distended. Diffuse tenderness throughout. No rebound. No guarding. EXTREMITIES: No clubbing, cyanosis, or edema. 2+ peripheral pulses. Chest wall exquisite tenderness on the left lateral side. LABORATORY DATA: From [facility] Emergency Department was reviewed. White blood cell count 5.8, hemoglobin and hematocrit 8.6 and 28.7, and platelets of 124. Glucose of 118, BUN and creatinine 106 and 2.8 with a GFR of 23. Sodium 130, potassium 3.7, chloride 97, CO2 of 18, BUN and creatinine as described above. Bilirubin of 1.5, AST and ALT of 38 and 15, alkaline phosphatase of 1252, and lipase was elevated at 246. Urinalysis was negative. Magnesium was elevated at 2.7. CT abdomen and pelvis revealed distended gallbladder with gallbladder sludge. Pancreas unremarkable. Adrenals were unremarkable. Abnormalities on the kidneys. Prostate gland appeared within normal limits. Soft tissue edema consistent with anasarca. Diffuse abnormal appearance of the bones of pannus consistent with metastatic disease. Diffuse air-fluid levels in the large bowel suggestive of ileus. ASSESSMENT AND PLAN: This is a 78-year-old gentleman with multiple medical problems, now with repeat admissions for different issues including his metastatic prostate carcinoma, CHF, near end-stage renal failure, and now with abdominal pain consistent with ileus and possibly pancreatitis. 1. Ileus. We will decrease his diet, cautiously replaces fluids. Most likely does not need IV fluids at this time. As long as, he can take p.o., we will encourage p.o. intake. Recheck abdominal x-ray in the morning. May need to make n.p.o. with NG tube if his nausea develops. 2. Elevated lipase, likely secondary to ileus and abdominal pain. No signs of pancreatitis on CT. We will continue to follow. 3. Anemia, multifactorial, likely related to his kidney disease and chronic disease. We will continue to follow. We will hold off on transfusion unless he becomes symptomatic or goes below 7. 4. Congestive heart failure with diastolic dysfunction. We will watch fluid replacement and monitor closely. 5. Stage 4 chronic kidney disease, seems to have improved somewhat from his last hospitalization. We will continue to watch closely. Continue furosemide. 6. Constipation and obstipation. We will continue Colace daily, magnesium citrate p.r.n. 7. Code status. The patient desires to do not resuscitate at this time. 8. Disposition. We will try to return him to the rehab unit at [place] once his abdominal pain resolves. Job ID: [id number]
[2018-07-22] MEDS: Ferrous Sulfate 325 MG TAB PO SCH (17:31)
[2018-07-22] MEDS: Docusate 100 MG CAP PO SCH (20:10)
[2018-07-23 04:44] LABS: #Eosinphils 0.1 thou/uL (0.0-0.7); #Lymphocytes 0.7 thou/uL (1.20-3.40); #Monocytes 0.4 thou/uL (0.11-0.59); #Neutrophils 2.8 thou/uL (1.40-6.50); %Basophils 0.3 % (0.0-1.0); %Eosinophils 1.5 % (0.0-10.0); %Lymphocytes 17.7 % (21.0-51.0); %Monocytes 11.1 % (0.0-10.0); %Neutrophils 69.4 % (42.0-75.0); Hemoglobin 8.5 g/dL (14.0-18.0); Mean Corpuscular HGB CONC 30.4 g/dL (32.0-36.0); Mean Corpuscular Hemoglobin 27.4 pg (27.0-31.0); Mean Corpuscular Volume 90.1 fL (78.0-98.0); Mean Platelet Volume 10.8 fL (7.4-10.4); Platelet Count 114 thou/uL (130-400); RBC Distribution Width 24.8 % (11.5-14.5); Red Blood Cell (RBC) Count 3.11 mill/uL (4.70-6.10)
[2018-07-23 05:01] LABS: ALT (SGPT) 9 U/L (8-55); AST (SGOT) 29 U/L (5-34); Alkaline Phosphatase 1130 U/L (40-150); Anion Gap 18 mmol/L (10-20); BUN (Urea Nitrogen) 99 mg/dL (8.4-25.7); Bilirubin, Total 1.7 mg/dL (0.2-1.2); Calc. Creatinine Clearance 39 mL/min (70-130); Calcium 10.2 mg/dL (7.8-10.44); Carbon Dioxide 19 mmol/L (23-31); Chloride 101 mmol/L (98-107); Estimated GFR-MDRD 29; Globulin 3.1 g/dL (2.4-3.5); Glucose 110 mg/dL (83-110); Potassium 3.8 mmol/L (3.5-5.1); Protein, Total 6.1 g/dL (5.8-8.1); Sodium 134 mmol/L (136-145)
[2018-07-23] MEDS: Polyethylene Glycol 3350 17 GM Packet PO SCH (08:35)
[2018-07-23] MEDS: Furosemide 40 MG TAB PO SCH (08:45)
[2018-07-23] MEDS: Docusate 100 MG CAP PO SCH ×2 (08:45→20:26)
[2018-07-23] MEDS: Folic Acid 1 MG TAB PO SCH (08:45)
[2018-07-23] MEDS: Ferrous Sulfate 325 MG TAB PO SCH ×2 (08:45→17:25)
[2018-07-23] MEDS: Multivitamin W/ Minerals 1 TAB PO SCH (08:45)
[2018-07-23] MEDS: Bicalutamide 50 MG TAB PO SCH (08:45)
[2018-07-23] MEDS: Sodium Bicarbonate Tab 325 MG TAB PO SCH ×3 (08:45→20:26)
[2018-07-23] MEDS ORDERED: Glycerin Adult Supp. (12 ct jar) PR PRN (15:11)
--- NOTE | 2018-07-23 15:59 | RAD ---
SUPINE AND DECUBITUS RADIOGRAPHS OF THE ABDOMEN PERFORMED: DATE: 07/23/2018. COMPARISON: None. HISTORY: Ileus. FINDINGS: Decubitus radiographs of the abdomen with the patient's right side up demonstrates no free intraperit adams air. A nonspecific calcified mass is noted in the left upper quadrant measuring 5.9 cm, likely within the right lobe of the liver. The decubitus imaging demonstrates scattered air fluid levels w ithin a mild to moderately distended gas-filled colon. There may be a few mildly dilated gas-filled loops of small bowel in the left upper quadrant. There are postoperative clips in the left upper quadrant. There is degenerative change involving the sacroiliac joints and bilateral hips. IMPRESSION: Gaseous distention of colon with air fluid levels on lateral imaging suggesting ileus. Followup imag ing to document resolution advised. POS: [facility]
--- NOTE | 2018-07-23 16:28 | PRG ---
DATE OF SERVICE: 07/23/2018 HISTORY OF PRESENT ILLNESS: The patient is reported to be in stable condition, sleeping somewhat somnolent by the shift leader nurse. Once he awoke, he was taken for x-ray around noon. Full radiology report has not been reported back and the patient has not had much to eat secondary to sleeping. The patient is a DNR/ DNI. Regarding his metastatic disease, cancer team consultation is pending as well as PT/OT. The patient was at the facility prior. Case Management was consulted for return to once patient is stabilized regarding his ileus. The patient reports he is passing some gas. Has not had a bowel movement despite magnesium citrate and MiraLAX. LABORATORY DATA: White blood cell count of 4.0, hemoglobin of 8.5, platelet count of 114. Sodium of 134, potassium of 3.8, creatinine at 2.58, blood glucose is 112 to 128, alkaline phosphatase significantly elevated to 1130, albumin of 3.0. Ribs/chest x-ray reviewed with metastatic disease throughout the lung with some element of pleural effusion at reported baseline and a fracture of left rib continues to remain present, but stable with no pneumothoraces. PHYSICAL EXAMINATION: VITAL SIGNS: Temperature of 98.4, pulse of 100, respiratory rate of 20, oxygen saturation 94% on 2 L nasal cannula, and blood pressure 134/60. GENERAL: The patient is somnolent, but appropriate questions when aroused. HEENT: Head is normocephalic and atraumatic. Extraocular movements are intact. Nasal cannula in place. The mucosa is moist. HEART: Slightly tachycardic at time of exam. No murmurs are auscultated. LUNGS: With coarse breath sounds bilaterally. No rubs or rhonchi. Diminished breath sounds bilateral bases. Slightly tender to ribs when palpated. ABDOMEN: Somewhat distended, however, not tense hyperresonant to percussion. No significant tenderness. This patient appears to be in no pain given the titration in fentanyl patch up to 50 mcg from 25 per reported base. On review documentations and the patient's chart, he had had multiple scans prior to transfer to [facility] including a gallbladder scan which showed some sludge, but no acute cholecystitis. The patient has no right upper quadrant pain at this point in time. EXTREMITIES: Lower extremities without cyanosis or edema. The patient is arousable, knows name. Speech is slow. ASSESSMENT AND PLAN: Ileus, diastolic and mild systolic congestive heart failure. Last ejection fraction of 45% to 50%. Baseline chronic kidney disease stage 4, metastatic prostate cancer, history of renal cell carcinoma status post nephrectomy and pancytopenia. We will follow up on cancer team's recommendations. Currently, given his respiratory status and fragile status, he was admitted prior for congestive heart failure exacerbation earlier this month with placement services. We will hold on fluids. Continue to see if the patient tolerate orals. If he begins having emesis, we will recommend NG tube, somewhat reluctant about increase in pain medications. However, he is a DNR regarding his metastatic disease, it is acceptable at this point in time to keep the patient comfortable. We will add glycerin suppository p.r.n. at this point in time. If no bowel movement produced, we will continue to titrate the bowel regimen until stools are produced. Follow up on abdomen x-ray read by Radiology. Job ID: [id number] [facility]
[2018-07-24 05:44] LABS: #Eosinphils 0.1 thou/uL (0.0-0.7); #Lymphocytes 0.9 thou/uL (1.20-3.40); #Monocytes 0.5 thou/uL (0.11-0.59); #Neutrophils 2.5 thou/uL (1.40-6.50); %Basophils 0.8 % (0.0-1.0); %Eosinophils 2.2 % (0.0-10.0); %Lymphocytes 22.2 % (21.0-51.0); %Monocytes 13.2 % (0.0-10.0); %Neutrophils 61.6 % (42.0-75.0); Hemoglobin 8.9 g/dL (14.0-18.0); Mean Corpuscular HGB CONC 29.8 g/dL (32.0-36.0); Mean Corpuscular Hemoglobin 27.3 pg (27.0-31.0); Mean Corpuscular Volume 91.5 fL (78.0-98.0); Mean Platelet Volume 10.8 fL (7.4-10.4); Platelet Count 100 thou/uL (130-400); Red Blood Cell (RBC) Count 3.27 mill/uL (4.70-6.10); White Blood Cell (WBC) Count 4.1 thou/uL (4.8-10.8)
[2018-07-24 05:57] LABS: ALT (SGPT) 13 U/L (8-55); AST (SGOT) 55 U/L (5-34); Alkaline Phosphatase 1334 U/L (40-150); Anion Gap 20 mmol/L (10-20); BUN (Urea Nitrogen) 100 mg/dL (8.4-25.7); Bilirubin, Total 1.7 mg/dL (0.2-1.2); Calc. Creatinine Clearance 39 mL/min (70-130); Calcium 10.7 mg/dL (7.8-10.44); Carbon Dioxide 17 mmol/L (23-31); Chloride 103 mmol/L (98-107); Estimated GFR-MDRD 29; Globulin 3.2 g/dL (2.4-3.5); Glucose 102 mg/dL (83-110); Potassium 4.1 mmol/L (3.5-5.1); Protein, Total 6.2 g/dL (5.8-8.1); Sodium 136 mmol/L (136-145)
[2018-07-24] MEDS ORDERED: Magnesium Citrate 300 ML BOT PO SCH (07:30)
[2018-07-24] MEDS ORDERED: Fleet Enema 133 ML BOT PR SCH (07:30)
[2018-07-24] MEDS: Docusate 100 MG CAP PO SCH ×2 (08:49→22:25)
[2018-07-24] MEDS: Ferrous Sulfate 325 MG TAB PO SCH (08:49)
[2018-07-24] MEDS: Bicalutamide 50 MG TAB PO SCH (08:49)
[2018-07-24] MEDS: Sodium Bicarbonate Tab 325 MG TAB PO SCH ×3 (08:49→22:24)
[2018-07-24] MEDS: Furosemide 40 MG TAB PO SCH (08:49)
[2018-07-24] MEDS: Folic Acid 1 MG TAB PO SCH (08:49)
[2018-07-24] MEDS: Multivitamin W/ Minerals 1 TAB PO SCH (08:50)
[2018-07-24] MEDS: Polyethylene Glycol 3350 17 GM Packet PO SCH (09:05)
[2018-07-24] MEDS ORDERED: MD-Gastroview 120 ML BOT ONE (16:59)
--- NOTE | 2018-07-24 17:30 | PRG ---
DATE OF SERVICE: 07/24/2018 HISTORY OF PRESENT ILLNESS: The patient continues to be somewhat somnolent on a 50 mcg of fentanyl patch, has not produced a bowel movement despite mag citrate, MiraLAX, and docusate sodium. Given the option for glycerin suppository yesterday evening of no bowel movement, nursing staff did not elect to give him 1. Reordering magnesium citrate. Continuing MiraLAX, docusate sodium, and Fleet's enema this morning. The patient continues to have prominent ileus on imaging. We will perform a small-bowel follow-through with contrast dye today on follow up results. The patient did not participate much with physical therapy, was unable to even get to side of bed, only performed range of motion with upper and lower extremities while laying recumbent. Documented limitations included the patient's rib fracture and pain as well as deconditioning with 3/5 strength in upper and lower extremities. LABORATORY DATA: White blood count of 4.1, hemoglobin of 8.9, and platelet count of 100. Sodium of 136, potassium of 4.1, creatinine of 2.59, and glucose of 102, read of small-bowel follow-through pending. PHYSICAL EXAMINATION: GENERAL: The patient is somnolent, arousable, but quickly goes back to sleep. Follows simple commands without difficulty. VITAL SIGNS: Temperature of 97.1, pulse of 90, respiratory rate of 16, oxygen saturation 92% on 2 L nasal cannula, and blood pressure 118/56. HEENT: Head is normocephalic and atraumatic. Extraocular movements are intact. Sclerae are white. Nasal cannula in place. NECK: Supple. HEART: Regular rate and rhythm. No murmurs auscultated. LUNGS: With diminished breath sounds in bilateral bases. No crackles or wheezes or rhonchi. ABDOMEN: Distended, but not tense. Hyper-resonant to percussion. However, no rebound or guarding. Generalized tenderness throughout is noted. EXTREMITIES: Lower extremities without cyanosis or edema. The patient alert and oriented x1 to 2, but quickly returns to sleep. He is moving all extremities equally. ASSESSMENT AND PLAN: Ileus, combined type; congestive heart failure; chronic kidney disease stage 5; left rib fracture; metastatic prostate cancer; history of renal cell carcinoma; pancytopenia. We will reduce the patient's fentanyl load to see if he will wake up and participate more. He is a DNI/DNR, but no reports of the patient being on hospice at this point in time regarding goals of care other than to improve bowel function with reduced opioid load. Reduced the patient's diet down to clear liquid. He is not having any emesis. Not proceeded with NG tube and surgical consultation as of yet. We will follow up on small-bowel follow-through as above. Depending on read, may consider soapsuds enema if continued efforts of oral laxatives are unfruitful. Job ID: [id number]
--- NOTE | 2018-07-24 21:39 | RAD ---
SMALL BOWEL FOLLOW THROUGH: History: Ileus. Comparison: Prior day. FINDINGS: Contrast was given to the patient via the enteric tube. Contrast is seen in the large bowel by 8 hour s. IMPRESSION: Contrast was seen in the large bowel within 8 hours. No high grade obstruction. POS: [facility]
[2018-07-24] MEDS: Enoxaparin Sodium 30 MG/0.3 ML SYRINGE SC SCH (22:25)
[2018-07-25 05:51] LABS: #Basophils 0.1 thou/uL (0.0-0.2); #Lymphocytes 0.6 thou/uL (1.20-3.40); #Monocytes 0.5 thou/uL (0.11-0.59); %Basophils 1.5 % (0.0-1.0); %Eosinophils 1.1 % (0.0-10.0); %Lymphocytes 15.2 % (21.0-51.0); %Neutrophils 71.2 % (42.0-75.0); Hemoglobin 9.1 g/dL (14.0-18.0); Mean Corpuscular HGB CONC 29.8 g/dL (32.0-36.0); Mean Corpuscular Hemoglobin 27.7 pg (27.0-31.0); Mean Corpuscular Volume 92.9 fL (78.0-98.0); Mean Platelet Volume 10.9 fL (7.4-10.4); Platelet Count 112 thou/uL (130-400); RBC Distribution Width 25.3 % (11.5-14.5); Red Blood Cell (RBC) Count 3.28 mill/uL (4.70-6.10); White Blood Cell (WBC) Count 4.2 thou/uL (4.8-10.8)
[2018-07-25 05:56] LABS: ALT (SGPT) 13 U/L (8-55); AST (SGOT) 58 U/L (5-34); Alkaline Phosphatase 1404 U/L (40-150); Anion Gap 21 mmol/L (10-20); BUN (Urea Nitrogen) 103 mg/dL (8.4-25.7); Bilirubin, Total 1.6 mg/dL (0.2-1.2); Calc. Creatinine Clearance 39 mL/min (70-130); Calcium 10.9 mg/dL (7.8-10.44); Carbon Dioxide 18 mmol/L (23-31); Chloride 105 mmol/L (98-107); Estimated GFR-MDRD 30; Globulin 3.1 g/dL (2.4-3.5); Glucose 107 mg/dL (83-110); Potassium 3.7 mmol/L (3.5-5.1); Protein, Total 6.1 g/dL (5.8-8.1); Sodium 140 mmol/L (136-145)
[2018-07-25] MEDS: Bicalutamide 50 MG TAB PO SCH (09:34)
[2018-07-25] MEDS: Polyethylene Glycol 3350 17 GM Packet PO SCH (09:37)
[2018-07-25] MEDS: Docusate 100 MG CAP PO SCH ×2 (09:37→21:29)
[2018-07-25] MEDS: Sodium Bicarbonate Tab 325 MG TAB PO SCH ×3 (09:38→21:29)
[2018-07-25] MEDS: Folic Acid 1 MG TAB PO SCH (09:39)
[2018-07-25] MEDS: Multivitamin W/ Minerals 1 TAB PO SCH (09:39)
[2018-07-25] MEDS: Furosemide 40 MG TAB PO SCH (09:40)
--- NOTE | 2018-07-25 13:41 | PRG ---
DATE OF SERVICE: 07/25/2018 SUBJECTIVE: The patient continues to be more lethargic. He does answer questions appropriately. He feels tired. Continues to have pain all over, but well controlled with the analgesia. He is having a bowel movements now, but watery since the small bowel follow-through. Appetite has been decreased, but he does not like the hospital food. Denies nausea or vomiting. OBJECTIVE: VITAL SIGNS: Temperature 97.7, pulse of 104, respirations 16, blood pressure 111/53, pulse ox is 94% on room air. GENERAL: He is awake and alert. No acute distress. He appears comfortable but sleepy. Mucosa is moist. NECK: Supple. HEART: Regular rate and rhythm. LUNGS: Distant. ABDOMEN: Diffuse tenderness. No rebound. No guarding. Less tympani to percussion. EXTREMITIES: Trace edema. LABORATORY DATA: A small-bowel follow through with contrast in large bowel within 8 hours, no high-grade obstruction. Abdominal x-ray from over the weekend revealed gaseous distention of the colon, suggestive of an ileus. Sodium 140, potassium 3.7, chloride 105, CO2 of 18, BUN and creatinine are 103 and 2.57, with a GFR of 30. Accu-Cheks reviewed. Calcium of 10.9, total bilirubin of 1.6, alkaline phosphatase elevated at 1404. White blood cell count 4200, hemoglobin and hematocrit are 9.1 and 30.5, and platelets of 112. ASSESSMENT AND PLAN: This is a 78-year-old gentleman with a history of metastatic prostate carcinoma to the bones and possibly to the liver, past history of renal cell carcinoma, end-stage renal failure, admitted with an ileus. 1. Ileus, seems to be resolving. We will advance his diet to comfort. No need for NG tube. 2. Anemia, seems to be improved. We will continue to follow. 3. Metastatic prostate carcinoma. Continue Casodex per Oncology Team. 4. Stage 4 chronic kidney disease, has improved somewhat with GFR increasing into the 30s now. 5. Constipation and obstipation. We will continue bowel regimen while on pain medicine. 6. Palliative care discussed with sisters and the patient, and he agrees with comfort measures. We will feed to comfort. We will consult Palliative Care for symptom management with hopes of [facility], possibly with hospice or palliative care there as well. Job ID: [id number]
[2018-07-25] MEDS: Enoxaparin Sodium 30 MG/0.3 ML SYRINGE SC SCH (21:30)
[2018-07-26] MEDS ORDERED: predniSONE 20 MG TAB PO SCH (08:00)
[2018-07-26 08:40] VITALS: BP 120/58; TEMP 97.5
--- NOTE | 2018-07-26 08:49 | DIS ---
DATE OF ADMISSION: 07/22/2018 DATE OF DISCHARGE: 07/26/2018 ADMISSION DIAGNOSIS: Abdominal pain secondary to ileus. DISCHARGE DIAGNOSIS: Ileus, resolved. OTHER DIAGNOSES: 1. Metastatic prostate carcinoma. 2. Stage 4 chronic kidney disease. Congestive heart failure, diastolic with cardiomyopathy. 3. Type 2 diabetes. 4. Rheumatoid arthritis. CONSULTATIONS: Dr. Soto for Oncology. PROCEDURES: 1. CT abdomen and pelvis. 2. Small bowel follow-through. 3. Abdominal x-rays. HOSPITAL COURSE: This is a 78-year-old gentleman with multiple medical problems as described above, who was recently transferred to [facility] after repeated admissions for heart failure, chronic pain, diagnosis of metastatic prostate carcinoma, presented to the emergency department initially at [facility] for abdominal pain. He was found to have dilated loops of large bowel on CAT scan. Due to his multiple medical problems, he was transferred to [facility] for further evaluation. He had slow improvement of his symptoms. He had a small bowel follow-through, which revealed transit of the contrast into the large bowels within 8 hours. His ileus slowly resolved with mild bowel rest. He did not need an NG tube. He was never having any vomiting. Of note, he has been slowly declining in his status over the past couple of months since the diagnosis of his prostate carcinoma and worsening of his renal failure. Even with decrease of his narcotic analgesia, he has not been as awake and alert as before. Family is aware of his decline. Palliative care was consulted during this admission. The patient and family are declining hospice care, but they want him to go back to the custodial in [place] where his is at this time. DISCHARGE PHYSICAL EXAMINATION: VITAL SIGNS: Temperature 97.4, pulse of 95 to 101, respirations 16, blood pressure 117/58, pulse ox is 94% on room air. GENERAL: He is awake and alert. He is lethargic, but awakens easily. Answers questions appropriately. Complains of pain throughout his body, worse since weaning off steroids. Mucosa is moist. NECK: Supple. HEART: Regular rate and rhythm. LUNGS: Clear. ABDOMEN: With positive bowel sounds and normal-sounding bowel sounds. Diffuse tenderness, but no rebound. No guarding. No hepatosplenomegaly. EXTREMITIES: With no edema. DISCHARGE LABORATORY DATA: White blood cell count 4200, hemoglobin and hematocrit 9.1 and 30.5, platelets of 112. Sodium 140, potassium 3.7, chloride 105, CO2 of 18, BUN and creatinine 103 and 2.57 with a GFR of 30. Accu-Cheks of 130/133/135, total bilirubin of 1.6. AST and ALT are stable. Alkaline phosphatase elevated at 1400. DISCHARGE MEDICATIONS: Include: 1. Tylenol p.r.n. 2. Casodex 50 mg daily. 3. Colace 100 mg b.i.d. 4. Duragesic 25 mcg every 3 days. 5. Folic acid 1 mg daily. 6. Glycerin suppository p.r.n.. 7. Multivitamin daily. 8. Claritin p.r.n. 9. Zofran 4 mg p.r.n. 10. MiraLAX 17 g daily p.r.n. 11. Prednisone 10 mg daily to be restarting. 12. Sodium bicarb 650 mg t.i.d. FOLLOW UP INSTRUCTIONS: The patient to be followed at the custodial. Follow up in my office in 1 to 2 weeks, if he is able. Palliative care to see prior to discharge and family considering hospice. Follow up with Dr. Soto as directed. Job ID: [id number]
[2018-07-26] MEDS: Docusate 100 MG CAP PO SCH (09:06)
[2018-07-26] MEDS: Polyethylene Glycol 3350 17 GM Packet PO SCH (09:06)
[2018-07-26] MEDS: Bicalutamide 50 MG TAB PO SCH (09:08)
[2018-07-26] MEDS: Multivitamin W/ Minerals 1 TAB PO SCH (09:09)
[2018-07-26] MEDS: Furosemide 40 MG TAB PO SCH (09:10)
[2018-07-26] MEDS: Sodium Bicarbonate Tab 325 MG TAB PO SCH ×2 (09:11→14:35)
[2018-07-26] MEDS: Folic Acid 1 MG TAB PO SCH (09:12)
== END 2018-07-26 17:58 | DRG 389 ==
LOC: ERS 02:09 → ONC 05:26 → OBSVTOIN 19:41
PROVIDERS: ADMIT Family Medicine; ATTEND Family Medicine
DX: K56.7 Ileus, unspecified (principal); I13.0 Hypertensive heart and chronic kidney disease with heart failure and stage 1 through stage 4 chronic kidney disease, or unspecified chronic kidney disease; N18.4 Chronic kidney disease, stage 4 (severe); I50.42 Chronic combined systolic (congestive) and diastolic (congestive) heart failure; I42.9 Cardiomyopathy, unspecified; C79.82 Secondary malignant neoplasm of genital organs; E11.22 Type 2 diabetes mellitus with diabetic chronic kidney disease; K59.00 Constipation, unspecified; D63.1 Anemia in chronic kidney disease; Z66 Do not resuscitate
CPT/HCPCS: 36415; 36416; 74019; 74250; 80053; 85025; 99285; J1650; Q9963